=== PATIENT | male | born 1975 | race Caucasian/White ===

== ENCOUNTER 2017-05-09 01:09 | Inpatient (IN) | payer SELFPAY ==
[2017-05-09] VITALS (18 sets, daily range): BP systolic 98–154; BP diastolic 56–82; PULSE 90–140; RESP 20; TEMP 96.6–100.6; O2SAT 93–100
[2017-05-09] MEDS ORDERED: ceFAZolin 2 GM PREMIX 50 ML ONE (01:26)
[2017-05-09] MEDS ORDERED: DIPHTH/TETANUS/ACEL PERTUSSIS (BOOSTER) 0.5 ML VIAL/PFS IM ONE (01:26)
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
[2017-05-09] MEDS ORDERED: IOHEXOL 350 MG/ML 10 ML VIAL (for RAD DIAG) IVCONTRAST ONE (01:41)
[2017-05-09 01:44] LABS: I-STAT POTASSIUM 3.9 MMOL/L (3.5-4.9)
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
[2017-05-09 01:52] LABS: AUTOMATED NEUTROPHIL # 13.6 TH/MM3 (1.8-7.7); BASOPHIL # 0.1 TH/MM3 (0-0.2); BASOPHIL % 0.5 % (0.0-2.0); HEMATOCRIT 47.5 % (39.0-51.0); HEMO FLAGS DIFF FINAL; LYMPHOCYTE # 4.9 TH/MM3 (1.0-4.8); MEAN CELL VOLUME 92.7 FL (80.0-100.0); MEAN CORPUSCULAR HEMOGLOBIN 32.2 PG (27.0-34.0); MEAN CORPUSCULAR HGB CONC 34.8 % (32.0-36.0); MONO % 5.1 % (0.0-8.0); NEUT % 69.4 % (16.0-70.0); PLATELET COUNT 187 TH/MM3 (150-450); RED BLOOD COUNT 5.13 MIL/MM3 (4.50-5.90); RED CELL DISTRIBUTION WIDTH 12.7 % (11.6-17.2); WHITE BLOOD COUNT 19.6 TH/MM3 (4.0-11.0)
[2017-05-09 01:54] LABS: APTT (PATIENT) 22.4 SEC (24.3-30.1); INTERNATIONAL NORMALIZED RATIO 1.1 RATIO; PROTHROMBIN TIME - PATIENT 12.1 SEC (9.8-11.6)
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
[2017-05-09] MEDS ORDERED: THROMBIN (TOPICAL) 5,000 UNIT VIAL ONE (02:17)
[2017-05-09] MEDS ORDERED: GELFOAM SIZE 100 ONE (02:18)
[2017-05-09] MEDS ORDERED: GENTAMICIN SULFATE 80 MG/2 ML VIAL ONE (02:18)
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
[2017-05-09] MEDS ORDERED: VANCOMYCIN HCL 1000 MG VIAL ONE (02:28)
[2017-05-09] MEDS ORDERED: MANNITOL INJ 100 ML ONE (02:28)
[2017-05-09] MEDS ORDERED: levETIRAcetam 500 MG/5 ML VIAL IV ONE (02:28)
[2017-05-09] MEDS ORDERED: SODIUM CHLORIDE 0.9% FLUSH 10 ML FLUSH IV FLUSH PRN (02:30)
[2017-05-09] MEDS ORDERED: ONDANSETRON HCL 4 MG/2 ML VIAL IV PUSH PRN (02:30)
[2017-05-09] MEDS ORDERED: BUPIVACAINE/EPINEPHRINE 0.5% PF 10 ML VIAL ONE (02:30)
[2017-05-09] MEDS ORDERED: NALOXONE HCL 0.4 MG/ML AMP IV PUSH PRN (02:30)
[2017-05-09] MEDS ORDERED: Post-op Orders (for Pharmacy) MISC XX ONE (02:30)
[2017-05-09] MEDS ORDERED: fentaNYL DRIP 250 ML IV PRN (02:45)
[2017-05-09] MEDS ORDERED: PROPOFOL 1000 MG/100 ML INJ 100 ML IV PRN (02:45)
[2017-05-09] MEDS ORDERED: 3% SALINE INJ 500 ML IV ONE (02:45)
[2017-05-09] MEDS ORDERED: BUPIVACAINE/EPINEPHRINE 0.5% 50 ML VIAL ONE (02:59)
[2017-05-09] MEDS ORDERED: NOREPINEPHRINE 4 MG/4 ML AMP ONE ×2 (03:07→07:54)
[2017-05-09 03:24] LABS: BLOOD GAS BASE EXCESS -6.6 mmol/L (-2-2); BLOOD GAS CARBOXYHEMOGLOBIN 4.7 % (0-4); BLOOD GAS HCO3 19 mmol/L (22-26); BLOOD GAS O2 HGB SATURATION 92 % (90-100); BLOOD GAS OXYGEN CONTENT 15.1 Vol % (12.0-20.0); BLOOD GAS PCO2 41 mmHg (38-42); BLOOD GAS PO2 99 mmHg (61-120); BLOOD GAS TOTAL HGB 11.6 G/DL (12.0-16.0); TEMP CORR TO 98.6
[2017-05-09 03:27] LABS: CRITICAL VALUE YES; DRAW SITE ALINE; OXYGEN DEVICE VENTILATOR; VENT SETTINGS OR SETTINGS
[2017-05-09 03:28] LABS: STAT YES
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
[2017-05-09] MEDS ORDERED: SODIUM BICARBONATE 8.4% INJ 50 ML ONE (04:55)
[2017-05-09] MEDS ORDERED: PHENYLEPHRINE HCL 10 MG/ML VIAL ONE (04:59)
[2017-05-09] MEDS ORDERED: ROCURONIUM INJ 50 MG/5 ML VIAL ONE (05:37)
[2017-05-09] MEDS ORDERED: MANNITOL INJ 200 ML ONE (05:37)
[2017-05-09] MEDS: SODIUM CHLOR 0.9% 1000 ML INJ 1,000 ML IV SCH ×4 (05:38→23:51)
[2017-05-09] MEDS: levETIRAcetam INJ 500 MG in SODIUM CHLORIDE 0.9% INJ 100 ML IV SCH ×3 (05:38→20:35)
[2017-05-09] MEDS: SODIUM CHLORIDE 23.4% INJ 240 MEQ in SYRINGE/BAG 1 EA IV SCH ×2 (06:00→10:00)
[2017-05-09 06:06] LABS: BLOOD GAS CARBOXYHEMOGLOBIN 2.5 % (0-4); BLOOD GAS HCO3 23 mmol/L (22-26); BLOOD GAS METHEMOGLOBIN 0.7 % (0-2); BLOOD GAS O2 HGB SATURATION 96 % (90-100); BLOOD GAS OXYGEN CONTENT 14.1 Vol % (12.0-20.0); BLOOD GAS PCO2 52 mmHg (38-42); BLOOD GAS PO2 197 mmHg (61-120); BLOOD GAS TOTAL HGB 10.1 G/DL (12.0-16.0); TEMP CORR TO 98.6
[2017-05-09 06:07] LABS: CRITICAL VALUE YES; DRAW SITE ART LINE; FIO2 100 %; OXYGEN DEVICE VENTILATOR; STAT NO; VENT SETTINGS 16/500/IT1.0/5PEEP
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
[2017-05-09 06:22] LABS: MEAN CORPUSCULAR HEMOGLOBIN 31.9 PG (27.0-34.0); MEAN CORPUSCULAR HGB CONC 34.7 % (32.0-36.0); PLATELET COUNT 188 TH/MM3 (150-450); RED BLOOD COUNT 3.26 MIL/MM3 (4.50-5.90); RED CELL DISTRIBUTION WIDTH 12.7 % (11.6-17.2); REVIEW FLAG FINAL; WHITE BLOOD COUNT 17.3 TH/MM3 (4.0-11.0)
[2017-05-09] MEDS ORDERED: MAGNESIUM OXIDE 400 MG TAB PO PRN (06:45)
[2017-05-09] MEDS ORDERED: POTASSIUM CHLOR 40 MEQ PREMIX 100 ML IV PRN ×2 (06:45)
[2017-05-09] MEDS ORDERED: TERBUTALINE INJ 1 MG/ML AMP SQ PRN ×2 (06:45→14:45)
[2017-05-09] MEDS ORDERED: MAGNESIUM SULFATE INJ 2 GM in SODIUM CHLORIDE 0.9% INJ 96 ML IV PRN (06:45)
[2017-05-09] MEDS ORDERED: POTASSIUM PHOSPHATE INJ 30 MMOL in SODIUM CHLOR 0.9% 250 ML INJ 250 ML IV PRN (06:45)
[2017-05-09] MEDS ORDERED: SODIUM PHOSPHATE INJ 30 MMOL in SODIUM CHLOR 0.9% 250 ML INJ 240 ML IV PRN (06:45)
[2017-05-09] MEDS ORDERED: POTASSIUM PHOSPHATE MONOBASIC 500 MG TAB PO/TUBE PRN (06:45)
[2017-05-09] MEDS ORDERED: MAGNESIUM SULFATE INJ 4 GM in SODIUM CHLORIDE 0.9% INJ 92 ML IV PRN (06:45)
[2017-05-09] MEDS ORDERED: POTASSIUM CHLORIDE 25 MEQ EFFERVESCENT TAB PO PRN (06:45)
[2017-05-09] MEDS ORDERED: POTASSIUM CHLOR 20 MEQ PREMIX 100 ML IV PRN ×2 (06:45)
[2017-05-09] MEDS ORDERED: SODIUM CHLOR 0.9% 1000 ML INJ 1,000 ML IV ONE (06:45)
[2017-05-09] MEDS ORDERED: POTASSIUM PHOSPHATE MONOBASIC 500 MG TAB PO PRN (06:45)
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
[2017-05-09 06:59] LABS: BICARBONATE 24.1 MEQ/L (21.0-32.0); POTASSIUM 3.9 MEQ/L (3.5-5.1)
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
[2017-05-09] MEDS: PROPOFOL 1000 MG/100 ML IV PRN ×4 (07:28→20:00)
[2017-05-09] MEDS: fentaNYL 2,500 MCG/NS 250 ML IV PRN ×2 (07:29→23:03)
[2017-05-09] MEDS: NOREPINEPHRINE INJ 4 MG in SODIUM CHLOR 0.9% 250 ML INJ 246 ML IV PRN ×3 (07:33→14:53)
[2017-05-09] MEDS ORDERED: BISACODYL 10 MG SUPP RECTAL PRN (07:45)
[2017-05-09] MEDS: CHLORHEXIDINE 0.12% (ORAL KIT) 15 ML CUP MT SCH ×2 (08:00→20:15)
[2017-05-09 08:09] LABS: BLOOD GAS BASE EXCESS -5.1 mmol/L (-2-2); BLOOD GAS CARBOXYHEMOGLOBIN 1.9 % (0-4); BLOOD GAS HCO3 20 mmol/L (22-26); BLOOD GAS METHEMOGLOBIN 0.6 % (0-2); BLOOD GAS O2 HGB SATURATION 96 % (90-100); BLOOD GAS OXYGEN CONTENT 13.3 Vol % (12.0-20.0); BLOOD GAS PCO2 42 mmHg (38-42); BLOOD GAS PO2 119 mmHg (61-120); BLOOD GAS TOTAL HGB 9.7 G/DL (12.0-16.0); CRITICAL VALUE NO; OXYGEN DEVICE VENTILATOR; TEMP CORR TO 98.6
[2017-05-09 08:10] LABS: DRAW SITE ART LINE; FIO2 65 %; NUMBER OF ARTERIAL PUNCTURES 0; STAT NO; ULNAR PULSE PRESENT; VENT SETTINGS PRVC20/550/1.0/+5
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
[2017-05-09] MEDS: SODIUM CHLORIDE 0.9% FLUSH 10 ML FLUSH IV FLUSH SCH ×2 (09:00→20:35)
[2017-05-09] MEDS: LACTULOSE SYRUP 20 GM/30 ML CUP PO SCH (09:00)
[2017-05-09] MEDS: DOCUSATE SODIUM 50 MG/SENNA 8.6 MG TAB PO SCH ×2 (09:00→20:35)
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
--- NOTE | 2017-05-09 09:24 | MP ---
cc: MOHINI KWAN MD AKA: [id number] DATE OF SURGERY: 05/09/2017 PREOPERATIVE DIAGNOSIS: Bilateral flail chest, left hemopneumothorax. POSTOPERATIVE DIAGNOSIS: Bilateral flail chest, left hemopneumothorax. OPERATION: Left chest tube placement and left subclavian triple-lumen placement. SURGEON: Dr. Kwan ANESTHESIA General. ESTIMATED BLOOD LOSS: Minimal. PROCEDURE: The patient was prepped and draped in the usual fashion. An incision made in the midaxillary line about sixth intercostal space deepened down with a hemostat into the pleural space and then 32-English chest tube inserted into the posterior sulcus. Sutured in place with 0-silk connected to Pleur-Evac. Next triple-lumen was placed. The patient is prepped and draped in the usual fashion. Area infiltrated with 1% Xylocaine, needle inserted into the subclavian vein. Through the needle J-wire was passed, over J-wire and dilator, triple-lumen placed, triple lumen sutured in place with 2-0 silk. Mohini PANIAGUA/STELLA /2:46 AM /9:16 AM
--- NOTE | 2017-05-09 09:53 | RADRPT ---
EXAM DATE/TIME: 05/09/2017 08:23 [facility] COMPARISON: No previous studies available for comparison. INDICATIONS : Left leg swelling. MEDICAL HISTORY : Deep venous thrombosis. Right subdural hematoma. IV drug user. SURGICAL HISTORY : Craniotomy. ENCOUNTER: Initial ACUITY: 1 day PAIN SCORE: Non-responsive LOCATION: Left leg. TECHNIQUE: Venous ultrasound of the leg was performed from the inguinal ligament to the proximal calf. Real-yelitza e, color Doppler and spectral tracing, compression and augmentation techniques were used. FINDINGS: Today's examination there is diffuse deep venous thrombosis involving the left lower extremity. There is noncompressible clot from the common iliac vein in the pelvis down through the calf. There is russ e flow in the saphenous vein. There is DVT in the peroneal and posterior tibial veins of the calf. CONCLUSION: Extensive deep venous thrombosis involving the entire left lower leg. Alcon Freitas MD on May 09, 2017 at 9:48 Board Certified Radiologist. This report was verified electronically.
[2017-05-09] MEDS: PANTOPRAZOLE SODIUM 40 MG VIAL IV PUSH SCH (10:33)
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
[2017-05-09] MEDS ORDERED: PHENYLEPHRINE INJ 160 MG in DEXTROSE 5% IN WATE 500 ML INJ 484 ML IV PRN ×2 (14:45)
[2017-05-09] MEDS ORDERED: ALBUMIN 5% INJ 500 ML IV ONE (14:45)
[2017-05-09] MEDS ORDERED: NOREPINEPHRINE 16 MG/D5W 250 ML IV PRN ×2 (15:45)
[2017-05-09] MEDS ORDERED: PHENYLEPHRINE INJ 160 MG in SODIUM CHLORID 0.9% 500 ML INJ 484 ML IV PRN (16:00)
[2017-05-09] MEDS ORDERED: PHENYLEPHRINE HCL 160 MG/D5W 484 ML ADMIX IV PRN ×2 (16:00)
[2017-05-09] MEDS ORDERED: NOREPINEPHRINE INJ 16 MG in SODIUM CHLOR 0.9% 250 ML INJ 234 ML IV PRN (16:00)
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
[2017-05-10] VITALS (20 sets, daily range): BP systolic 100–151; BP diastolic 56–92; PULSE 92–119; RESP 18–25; TEMP 97.2–99.5; O2SAT 97–100
[2017-05-10] MEDS: PANTOPRAZOLE SODIUM 40 MG VIAL IV PUSH SCH (02:35)
[2017-05-10] MEDS: PROPOFOL 1000 MG/100 ML IV PRN ×4 (02:37→23:57)
--- NOTE | 2017-05-10 04:54 | RADRPT ---
EXAM DATE/TIME: 05/10/2017 04:22 [facility] COMPARISON: CT BRAIN W/O CONTRAST, May 09, 2017, 1:35. INDICATIONS : Follow up trauma, post-op. RADIATION DOSE: 51.36 CTDIvol (mGy) ; Tabletop CT Head MEDICAL HISTORY : Non-responsive. SURGICAL HISTORY : Non-responsive. ENCOUNTER: Subsequent ACUITY: 1 day PAIN SCALE: Non-responsive LOCATION: cranial TECHNIQUE: Multiple contiguous axial images were obtained of the head. Using automated exposure control and adj ustment of the mA and/or kV according to patient size, radiation dose was kept as low as reasonably a chievable to obtain optimal diagnostic quality images. DICOM format image data is available electro nically for review and comparison. FINDINGS: Right temporal craniectomy is present with a drain in place. There is decreasing mass effect and midl ine shift. There is no evidence of herniation. Conclusions are present in the left frontal lobe and l eft temporal lobe. Subarachnoid hemorrhage is present. CONCLUSION: 1. Postsurgical changes as above. decreasing mass effect and midline shift 2. Evolving contusions Dmitriy Zeng MD on May 10, 2017 at 4:50 Board Certified Radiologist. This report was verified electronically.
--- NOTE | 2017-05-10 05:46 | RADRPT ---
EXAM DATE/TIME: 05/10/2017 04:59 [facility] COMPARISON: CHEST SINGLE AP, May 09, 2017, 5:30. INDICATIONS : Short of breath. MEDICAL HISTORY : None. SURGICAL HISTORY : None. ENCOUNTER: Subsequent ACUITY: 2 days PAIN SCORE: 0/10 LOCATION: Bilateral chest FINDINGS: The cardiac silhouette is normal in transverse diameter. A left chest tube is in place. There is no e vidence of pneumothorax. There is subsegmental atelectasis in the left base. CONCLUSION: 1. Left basilar atelectasis. There is no evidence of pneumothorax. Dmitriy Zeng MD on May 10, 2017 at 5:44 Board Certified Radiologist. This report was verified electronically.
[2017-05-10 06:37] LABS: AUTOMATED NEUTROPHIL # 6.2 TH/MM3 (1.8-7.7); BASOPHIL % 0.1 % (0.0-2.0); HEMATOCRIT 22.1 % (39.0-51.0); HEMO FLAGS DIFF FINAL; LYMPH % 14.1 % (9.0-44.0); LYMPHOCYTE # 1.1 TH/MM3 (1.0-4.8); MEAN CELL VOLUME 91.1 FL (80.0-100.0); MEAN CORPUSCULAR HEMOGLOBIN 32.6 PG (27.0-34.0); MEAN CORPUSCULAR HGB CONC 35.7 % (32.0-36.0); NEUT % 76.8 % (16.0-70.0); PLATELET COUNT 100 TH/MM3 (150-450); RED BLOOD COUNT 2.42 MIL/MM3 (4.50-5.90); WHITE BLOOD COUNT 8.1 TH/MM3 (4.0-11.0)
[2017-05-10 06:46] LABS: BLOOD GAS BASE EXCESS -2.1 mmol/L (-2-2); BLOOD GAS CARBOXYHEMOGLOBIN 1.5 % (0-4); BLOOD GAS HCO3 22 mmol/L (22-26); BLOOD GAS METHEMOGLOBIN 0.7 % (0-2); BLOOD GAS O2 HGB SATURATION 93 % (90-100); BLOOD GAS OXYGEN CONTENT 10.3 Vol % (12.0-20.0); BLOOD GAS PO2 73 mmHg (61-120); BLOOD GAS TOTAL HGB 7.8 G/DL (12.0-16.0); CRITICAL VALUE NO; FIO2 40 %; OXYGEN DEVICE VENTILATOR; TEMP CORR TO 98.6; VENT SETTINGS 20/650/IT1.0/10PEEP
[2017-05-10 06:47] LABS: BLOOD GAS PCO2 33 mmHg (38-42); DRAW SITE ART LINE; STAT NO
[2017-05-10 07:10] LABS: BICARBONATE 21.8 MEQ/L (21.0-32.0); CALCIUM-PROTEIN CORRECTED 8.2 MG/DL (8.5-10.1); MAGNESIUM 1.7 MG/DL (1.5-2.5); TOTAL BILIRUBIN ADULT 0.8 MG/DL (0.2-1.0)
[2017-05-10] MEDS: CHLORHEXIDINE 0.12% (ORAL KIT) 15 ML CUP MT SCH ×2 (08:56→19:31)
[2017-05-10] MEDS: levETIRAcetam INJ 500 MG in SODIUM CHLORIDE 0.9% INJ 100 ML IV SCH ×2 (08:57→19:31)
[2017-05-10] MEDS: SODIUM CHLORIDE 0.9% FLUSH 10 ML FLUSH IV FLUSH SCH ×2 (08:57→19:31)
[2017-05-10] MEDS: DOCUSATE SODIUM 50 MG/SENNA 8.6 MG TAB PO SCH ×2 (09:00→19:31)
[2017-05-10] MEDS: LACTULOSE SYRUP 20 GM/30 ML CUP PO SCH (09:00)
[2017-05-10] MEDS ORDERED: LIDOCAINE 2%/EPINEPHrine 1:100,000 20ML MDV INFIL ONE (09:15)
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
[2017-05-10] MEDS: ARTIFICIAL TEARS OPTH SOLN 15 ML BTL EACH EYE SCH ×3 (12:00→23:11)
[2017-05-10] MEDS: fentaNYL 2,500 MCG/NS 250 ML IV PRN (13:02)
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
--- NOTE | 2017-05-10 13:51 | ECHRPT ---
Indication: assess lv function CONCLUSIONS The left ventricular systolic function is hyperdynamic with an estimated ejection fraction in the ra nge of 65- 70%. Normal left ventricular size. Wall thickness is normal. No regional wall motion abnormalities are present. BP: 117 / 66 HR: 110 Rhythm: Sinus MEASUREMENTS (Male / Female) Normal Values Technical Quality:Technically difficult study 2D ECHO LV Diastolic Diameter PLAX 3.8 cm 4.2 - 5.9 / 3.9 - 5.3 cm LV Systolic Diameter PLAX 2.4 cm IVS Diastolic Thickness 1.0 cm 0.6 - 1.0 / 0.6 - 0.9 cm LVPW Diastolic Thickness 1.0 cm 0.6 - 1.0 / 0.6 - 0.9 cm LV Relative Wall Thickness 0.5 RV Internal Dim ED PLAX 1.8 cm LVOT Diameter 2.1 cm M-MODE Aortic Root Diameter MM 2.6 cm AV Cusp Separation MM 2.1 cm DOPPLER AV Peak Velocity 115.0 cm/s AV Peak Gradient 5.3 mmHg LVOT Peak Velocity 110.0 cm/s LVOT Peak Gradient 4.8 mmHg AV Area Cont Eq pk 3.3 cm MV Area PHT 4.6 cm Mitral E Point Velocity 54.8 cm/s Mitral A Point Velocity 74.0 cm/s Mitral E to A Ratio 0.7 PV Peak Velocity 88.2 cm/s PV Peak Gradient 3.1 mmHg FINDINGS LEFT VENTRICLE The left ventricular systolic function is hyperdynamic with an estimated ejection fraction in the ra nge of 65- 70%. Normal left ventricular size. Wall thickness is normal. No regional wall motion abnormalities are present. TRICUSPID VALVE Chencho Keane MD (Electronically Signed) Final Date:10 May 2017 13:50
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
[2017-05-10] MEDS: SODIUM CHLOR 0.9% 1000 ML INJ 1,000 ML IV SCH (17:45)
[2017-05-10] MEDS: ceFAZolin 2 GM PREMIX 50 ML IV SCH (17:45)
[2017-05-10] MEDS: GENTAMICIN/SOD CHL 80 MG/100 ML IV SCH (18:23)
[2017-05-11] VITALS (22 sets, daily range): BP systolic 132–165; BP diastolic 73–94; PULSE 56–104; RESP 14–18; TEMP 97.2–98.2; O2SAT 95–100
[2017-05-11] MEDS: GENTAMICIN/SOD CHL 80 MG/100 ML IV SCH ×2 (01:14→08:33)
[2017-05-11] MEDS: ceFAZolin 2 GM PREMIX 50 ML IV SCH ×3 (01:40→18:12)
[2017-05-11] MEDS: PANTOPRAZOLE SODIUM 40 MG VIAL IV PUSH SCH (01:44)
[2017-05-11] MEDS ORDERED: METOPROLOL TARTRATE 25 MG TAB PO PRN (04:00)
[2017-05-11] MEDS ORDERED: LACTATED RINGER'S 1000 ML IV PRN (04:00)
[2017-05-11] MEDS ORDERED: INSULIN HUMAN REGULAR 1,000 UNITS/10 ML VIAL SQ PRN (04:00)
[2017-05-11] MEDS ORDERED: POVIDONE IODINE 5% (ANTISEPSIS KIT) 4 APPLICATIONS EACH NARE PRN (04:00)
[2017-05-11] MEDS ORDERED: SODIUM CHLORID 0.9% 500 ML IV PRN (04:00)
[2017-05-11] MEDS ORDERED: CHLORHEXIDINE GLUCONATE 2 % 1 PACK (2 CLOTHS) TOPICAL PRN (04:00)
[2017-05-11] MEDS: fentaNYL 2,500 MCG/NS 250 ML IV PRN ×2 (04:17→21:31)
[2017-05-11] MEDS: PROPOFOL 1000 MG/100 ML IV PRN ×5 (04:17→21:31)
[2017-05-11 05:36] LABS: BLOOD GAS BASE EXCESS -1.1 mmol/L (-2-2); BLOOD GAS CARBOXYHEMOGLOBIN 1.5 % (0-4); BLOOD GAS HCO3 22 mmol/L (22-26); BLOOD GAS METHEMOGLOBIN 0.6 % (0-2); BLOOD GAS O2 HGB SATURATION 95 % (90-100); BLOOD GAS OXYGEN CONTENT 11.2 Vol % (12.0-20.0); BLOOD GAS PCO2 32 mmHg (38-42); BLOOD GAS PO2 88 mmHg (61-120); BLOOD GAS TOTAL HGB 8.2 G/DL (12.0-16.0); TEMP CORR TO 98.6
[2017-05-11 05:37] LABS: CRITICAL VALUE NO; OXYGEN DEVICE VENTILATOR
[2017-05-11 05:38] LABS: DRAW SITE ART LINE; FIO2 40 %; STAT NO; VENT SETTINGS PRVC/AC
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
[2017-05-11] MEDS: ARTIFICIAL TEARS OPTH SOLN 15 ML BTL EACH EYE SCH ×3 (05:47→18:00)
[2017-05-11 06:01] LABS: BASOPHIL % 0.1 % (0.0-2.0); EOSINOPHIL % 0.1 % (0.0-4.0); HEMATOCRIT 22.9 % (39.0-51.0); LYMPH % 17.2 % (9.0-44.0); LYMPHOCYTE # 1.6 TH/MM3 (1.0-4.8); MEAN CELL VOLUME 91.1 FL (80.0-100.0); MEAN CORPUSCULAR HGB CONC 35.1 % (32.0-36.0); MONO % 6.4 % (0.0-8.0); NEUT % 76.2 % (16.0-70.0); PLATELET COUNT 91 TH/MM3 (150-450); RED BLOOD COUNT 2.51 MIL/MM3 (4.50-5.90); WHITE BLOOD COUNT 9.2 TH/MM3 (4.0-11.0)
[2017-05-11 06:11] LABS: HEMO FLAGS AUTO DIFF
[2017-05-11 06:25] LABS: BICARBONATE 22.1 MEQ/L (21.0-32.0); POTASSIUM 3.9 MEQ/L (3.5-5.1)
[2017-05-11 07:14] LABS: SCAN/DIFF AUTO DIFF CONFIRMED
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
[2017-05-11] MEDS: levETIRAcetam INJ 500 MG in SODIUM CHLORIDE 0.9% INJ 100 ML IV SCH ×2 (08:35→21:29)
[2017-05-11] MEDS: SODIUM CHLORIDE 0.9% FLUSH 10 ML FLUSH IV FLUSH SCH ×2 (08:36→21:00)
[2017-05-11] MEDS: CHLORHEXIDINE 0.12% (ORAL KIT) 15 ML CUP MT SCH ×2 (08:36→21:29)
[2017-05-11] MEDS: LACTULOSE SYRUP 20 GM/30 ML CUP PO SCH (08:36)
[2017-05-11] MEDS: DOCUSATE SODIUM 50 MG/SENNA 8.6 MG TAB PO SCH ×2 (08:36→21:29)
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
[2017-05-11] MEDS: SODIUM CHLOR 0.9% 1000 ML INJ 1,000 ML IV SCH ×2 (10:20→23:45)
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
[2017-05-11] MEDS ORDERED: GENTAMICIN SULFATE 80 MG/2 ML VIAL ONE (13:20)
[2017-05-11] MEDS ORDERED: ceFAZolin INJ 1,000 MG VIAL ONE (13:20)
[2017-05-11 14:50] LABS: BLOOD GAS BASE EXCESS -3.1 mmol/L (-2-2); BLOOD GAS CARBOXYHEMOGLOBIN 1.7 % (0-4); BLOOD GAS HCO3 21 mmol/L (22-26); BLOOD GAS O2 HGB SATURATION 97 % (90-100); BLOOD GAS OXYGEN CONTENT 10.2 Vol % (12.0-20.0); BLOOD GAS PCO2 38 mmHg (38-42); BLOOD GAS PO2 130 mmHg (61-120); BLOOD GAS TOTAL HGB 7.3 G/DL (12.0-16.0); CRITICAL VALUE NO; FIO2 60 %; OXYGEN DEVICE OR; STAT YES; TEMP CORR TO 98.6
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
[2017-05-11] MEDS: GENTAMICIN 80 MG PREMIX 100 ML IV SCH (16:12)
[2017-05-11] MEDS: BENEPROTEIN POWDER 1 PACK PEG SCH (18:00)
--- NOTE | 2017-05-11 19:19 | RADRPT ---
EXAM DATE/TIME: 05/11/2017 18:33 [facility] COMPARISON: No previous studies available for comparison. INDICATIONS : Left shoulder pain, fracture. RADIATION DOSE: 22.05 CTDIvol (mGy) MEDICAL HISTORY : Vented. SURGICAL HISTORY : Non-responsive. ENCOUNTER: Initial ACUITY: 1 day PAIN SCALE: Non-responsive LOCATION: Left shoulder TECHNIQUE: Volumetric scanning of the shoulder was performed. Using automated exposure control and adjustment o f the mA and/or kV according to patient size, radiation dose was kept as low as reasonably achievable to obtain optimal diagnostic quality images. DICOM format image data is available electronically f or review and comparison. FINDINGS: Multiple displaced rib fractures are seen. There is a complex and comminuted fracture of proxima l humerus underneath the surgical neck with extension into the humeral head and the humeral head is r otated. There are fractures of distal clavicle, acromion, in addition to scapula. The humeral head is shattered parts of it appears dislocated out of the glenoid humeral joint. CONCLUSION: Complex and comminuted fracture left proximal humerus with shattered humeral head par t of which appears dislocated and there are fractures of the acromion, scapula and distal clavicle in addition to multiple ribs. Jennifer Scales MD on May 11, 2017 at 19:15 Board Certified Radiologist. This report was verified electronically.
[2017-05-12] VITALS (15 sets, daily range): BP systolic 140–184; BP diastolic 71–112; PULSE 64–121; RESP 18–25; TEMP 98–99.8; O2SAT 97–100
[2017-05-12] MEDS: ceFAZolin 2 GM PREMIX 50 ML IV SCH ×3 (00:13→16:09)
[2017-05-12] MEDS: GENTAMICIN 80 MG PREMIX 100 ML IV SCH ×3 (00:13→16:08)
--- NOTE | 2017-05-12 03:35 | RADRPT ---
EXAM DATE/TIME: 05/12/2017 03:33 [facility] COMPARISON: CHEST SINGLE AP, May 10, 2017, 4:59. INDICATIONS : Short of breath. MEDICAL HISTORY : None. SURGICAL HISTORY : None. ENCOUNTER: Subsequent ACUITY: 3 days PAIN SCORE: 0/10 LOCATION: Bilateral chest FINDINGS: The cardiac silhouette is normal in transverse diameter. A left chest tube is in place. There is no e vidence of pneumothorax. A left sided subclavian vein catheter is in place without pneumothorax with its tip in the superior vena cava. The right lung is free of acute parenchymal opacity. There is left lower lobe atelectasis versus pneumonia. A small left sided effusion is present. CONCLUSION: 1. Left lower lobe atelectasis versus pneumonia. This is new when compared with the prior exam. Dmitriy Zeng MD on May 12, 2017 at 3:32 Board Certified Radiologist. This report was verified electronically.
[2017-05-12] MEDS: BENEPROTEIN POWDER 1 PACK PEG SCH ×3 (03:40→17:09)
[2017-05-12 05:09] LABS: BLOOD GAS BASE EXCESS -0.5 mmol/L (-2-2); BLOOD GAS CARBOXYHEMOGLOBIN 1.7 % (0-4); BLOOD GAS HCO3 23 mmol/L (22-26); BLOOD GAS METHEMOGLOBIN 0.8 % (0-2); BLOOD GAS O2 HGB SATURATION 95 % (90-100); BLOOD GAS OXYGEN CONTENT 10.6 Vol % (12.0-20.0); BLOOD GAS PCO2 32 mmHg (38-42); BLOOD GAS PO2 85 mmHg (61-120); BLOOD GAS TOTAL HGB 7.8 G/DL (12.0-16.0); TEMP CORR TO 98.6
[2017-05-12 05:44] LABS: CRITICAL VALUE NO
[2017-05-12 05:45] LABS: OXYGEN DEVICE VENTILATOR
[2017-05-12 05:47] LABS: DRAW SITE ART LINE; FIO2 40 %; VENT SETTINGS PRVCAC
[2017-05-12 05:48] LABS: STAT NO
[2017-05-12 05:55] LABS: BASOPHIL % 0.2 % (0.0-2.0); EOSINOPHIL % 0.4 % (0.0-4.0); HEMATOCRIT 21.5 % (39.0-51.0); LYMPH % 15.6 % (9.0-44.0); LYMPHOCYTE # 1.4 TH/MM3 (1.0-4.8); MEAN CELL VOLUME 90.9 FL (80.0-100.0); MEAN CORPUSCULAR HEMOGLOBIN 32.3 PG (27.0-34.0); MEAN CORPUSCULAR HGB CONC 35.5 % (32.0-36.0); MONO % 4.9 % (0.0-8.0); NEUT % 78.9 % (16.0-70.0); PLATELET COUNT 81 TH/MM3 (150-450); RED BLOOD COUNT 2.37 MIL/MM3 (4.50-5.90); RED CELL DISTRIBUTION WIDTH 13.9 % (11.6-17.2); WHITE BLOOD COUNT 8.9 TH/MM3 (4.0-11.0)
[2017-05-12 06:00] LABS: HEMO FLAGS AUTO DIFF
[2017-05-12] MEDS: ARTIFICIAL TEARS OPTH SOLN 15 ML BTL EACH EYE SCH ×4 (06:00→17:09)
[2017-05-12] MEDS: PROPOFOL 1000 MG/100 ML IV PRN ×4 (06:21→15:47)
[2017-05-12 06:26] LABS: BICARBONATE 23.9 MEQ/L (21.0-32.0); POTASSIUM 3.5 MEQ/L (3.5-5.1)
[2017-05-12 06:38] LABS: CALCIUM-PROTEIN CORRECTED 8.5 MG/DL (8.5-10.1)
[2017-05-12 06:58] LABS: BANDS 1 % (0-6); CORRECTED NUCLEATED RBC 1 /100 WBC (0-0); METAMYELOCYTES 2 % (0-1); MYELOCYTES 3 % (0-0); NEUTROPHIL # MANUAL DIFF 7.1 TH/MM3 (1.8-7.7); POLYS (SEG NEUTROPHILS) 74 % (16-70); WBC DIFF SAMPLE 100
[2017-05-12 06:59] LABS: PLATELET ESTIMATE SMEAR LOW (NORMAL); PLATELET MORPHOLOGY NORMAL (NORMAL); SCAN/DIFF FINAL DIFF MANUAL
[2017-05-12] MEDS: CHLORHEXIDINE 0.12% (ORAL KIT) 15 ML CUP MT SCH ×2 (08:30→20:52)
[2017-05-12] MEDS: levETIRAcetam INJ 500 MG in SODIUM CHLORIDE 0.9% INJ 100 ML IV SCH ×2 (08:32→20:51)
[2017-05-12] MEDS: SODIUM CHLORIDE 0.9% FLUSH 10 ML FLUSH IV FLUSH SCH ×2 (08:32→20:52)
[2017-05-12] MEDS: LACTULOSE SYRUP 20 GM/30 ML CUP PO SCH (08:33)
[2017-05-12] MEDS: DOCUSATE SODIUM 50 MG/SENNA 8.6 MG TAB PO SCH ×2 (08:33→20:51)
[2017-05-12] MEDS: FAMOTIDINE 20 MG TAB PO SCH ×2 (08:33→20:51)
[2017-05-12] MEDS: fentaNYL 2,500 MCG/NS 250 ML IV PRN ×2 (08:34→16:08)
[2017-05-12] MEDS: SODIUM CHLOR 0.9% 1000 ML INJ 1,000 ML IV SCH ×2 (08:35→20:52)
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
[2017-05-12] MEDS: METHOCARBAMOL 500 MG TAB PO SCH ×2 (10:23→16:09)
--- NOTE | 2017-05-12 10:54 | PD.ORT.PN ---
Subjective Subjective Remarks s/p open left elbow fx with I&D - POD 1 s/p right distal radius fx s/p left proximal humerus fracture intubated/sedated Objective Vitals Vital Signs Date Time Temp Pulse Resp B/P (MAP) Pulse Ox O2 Delivery O2 Flow Rate FiO2 05/12/17 08:27 100 40 05/12/17 06:00 71 05/12/17 04:00 71 05/12/17 04:00 40 05/12/17 04:00 98.6 96 18 146/80 (102) 100 05/12/17 03:41 99 40 05/12/17 02:00 71 05/12/17 00:00 40 05/12/17 00:00 98.0 64 18 140/81 (100) 100 05/12/17 00:00 71 05/11/17 23:23 95 40 05/11/17 22:00 70 05/11/17 20:32 100 05/11/17 20:28 100 40 05/11/17 20:00 40 05/11/17 20:00 64 05/11/17 20:00 97.5 64 18 141/81 (101) 100 05/11/17 19:00 99 Mechanical Ventilator 40 05/11/17 18:57 100 05/11/17 18:00 70 05/11/17 16:00 60 05/11/17 16:00 97.5 73 14 159/94 (115) 100 05/11/17 16:00 40 05/11/17 15:46 100 05/11/17 15:42 98 40 05/11/17 12:04 100 40 05/11/17 12:00 97.3 57 18 152/76 (101) 100 05/11/17 12:00 40 05/11/17 12:00 56 I/O 05/11/17 05/11/17 05/11/17 05/12/17 05/12/17 05/12/17 07:00 15:00 23:00 07:00 15:00 23:00 Intake Total 1206.3 ml 321.6 ml 2252.8 ml 670 ml Output Total 475 ml 638 ml 960 ml Balance 731.3 ml 321.6 ml 1614.8 ml -290 ml Intake IV Total 1143.3 ml 321.6 ml 1747.8 ml 100 ml Tube Feeding 63 ml 510 ml Blood Product IV Normal Saline Flush 5 ml Tube Irrigant 60 ml Other 500 ml Output Urine Total 425 ml 450 ml 900 ml Gastric Drainage Total 0 ml Chest Tube Drainage Total 50 ml 38 ml 60 ml Estimated Blood Loss 150 ml # Bowel Movements 0 0 Result Diagram: 05/12/1738 05/12/17537 Imaging Last [address] 05/10/17599 Signed Impressions: Service Date/Time: Wednesday, May 10, 2017 04:22 - CONCLUSION: 1. Postsurgical changes as above. decreasing mass effect and midline shift 2. Evolving contusions Dmitriy Zeng MD Chest X-Ray 05/10/17599 Signed Impressions: Service Date/Time: Wednesday, May 10, 2017 04:59 - CONCLUSION: 1. Left basilar atelectasis. There is no evidence of pneumothorax. Dmitriy Zeng MD Objective Remarks Intubated Right upper extremity: splint in place. right wrist. Left upper extremity: +long arm splint in full extension. clean and dry. good perfusion of fingers. Assessment & Plan Assessment and Plan 1- TBI 2- right distal radius fracture 3- left severely comminuted open elbow fracture, limb threatening 3- Comminuted Left Proximal Humerus Fx -CT scan of left shoulder reveal comminuted proximal humerus fracture. this will need definitive fixation -maintain long arm splint at all times on left -maintain splint on right wrist -will not proceed with surgery of left elbow until cleared by neuro to be placed in lateral position. patient will need to be lateral for approx 2-3 hours. -potentially move forward with ORIF of right wrist tomorrow or Tomas Jesus May 12, 2017 10:54
[2017-05-12] MEDS ORDERED: SODIUM CHLOR 0.9% 250 ML INJ 250 ML IV ONE (11:00)
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
--- NOTE | 2017-05-12 14:28 | EKG ---
Date Performed: 05/11/2017 Time Performed: 10:14:56 PTAGE: 41 years EKG: Sinus rhythm Poor R wave progression - probable normal variant Borderline ECG NO PREVIOUS TRACING DOCTOR: Wesley De Interpretating Date/Time 05/12/2017 14:20:55
[2017-05-12] MEDS: MAGNESIUM HYDROXIDE SUSP 30 ML CUP PO SCH (20:51)
[2017-05-12 21:13] LABS: HEMATOCRIT 23.1 % (39.0-51.0)
[2017-05-12 21:18] LABS: REVIEW FLAG FINAL
[2017-05-13] VITALS (21 sets, daily range): BP systolic 136–161; BP diastolic 67–85; PULSE 71–102; RESP 20–22; TEMP 99–100.1; O2SAT 93–100
[2017-05-13] MEDS: ARTIFICIAL TEARS OPTH SOLN 15 ML BTL EACH EYE SCH ×4 (00:58→18:00)
[2017-05-13] MEDS: GENTAMICIN 80 MG PREMIX 100 ML IV SCH ×4 (00:58→22:51)
[2017-05-13] MEDS: METHOCARBAMOL 500 MG TAB PO SCH ×3 (00:58→16:25)
[2017-05-13] MEDS: ceFAZolin 2 GM PREMIX 50 ML IV SCH ×3 (00:58→16:25)
[2017-05-13] MEDS: BENEPROTEIN POWDER 1 PACK PEG SCH ×3 (01:49→18:00)
[2017-05-13] MEDS: PROPOFOL 1000 MG/100 ML IV PRN ×6 (02:10→22:44)
[2017-05-13] MEDS: SODIUM CHLOR 0.9% 1000 ML INJ 1,000 ML IV SCH ×2 (03:57→15:45)
[2017-05-13 05:16] LABS: BLOOD GAS BASE EXCESS -1.6 mmol/L (-2-2); BLOOD GAS HCO3 21 mmol/L (22-26); BLOOD GAS METHEMOGLOBIN 0.7 % (0-2); BLOOD GAS O2 HGB SATURATION 97 % (90-100); BLOOD GAS PCO2 27 mmHg (38-42); BLOOD GAS PO2 112 mmHg (61-120); TEMP CORR TO 98.6
[2017-05-13 05:17] LABS: CRITICAL VALUE NO; OXYGEN DEVICE VENT; VENT SETTINGS SEE COMMENTS
[2017-05-13 05:18] LABS: DRAW SITE ART LINE; FIO2 40 %; STAT NO; ULNAR PULSE PRESENT
[2017-05-13 05:49] LABS: AUTOMATED NEUTROPHIL # 7.3 TH/MM3 (1.8-7.7); BASOPHIL % 0.4 % (0.0-2.0); EOSINOPHIL # 0.1 TH/MM3 (0-0.4); EOSINOPHIL % 0.5 % (0.0-4.0); HEMATOCRIT 21.7 % (39.0-51.0); LYMPH % 17.7 % (9.0-44.0); LYMPHOCYTE # 1.7 TH/MM3 (1.0-4.8); MEAN CELL VOLUME 89.8 FL (80.0-100.0); MEAN CORPUSCULAR HGB CONC 35.7 % (32.0-36.0); MONO % 5.5 % (0.0-8.0); NEUT % 75.9 % (16.0-70.0); PLATELET COUNT 80 TH/MM3 (150-450); RED BLOOD COUNT 2.42 MIL/MM3 (4.50-5.90); RED CELL DISTRIBUTION WIDTH 14.8 % (11.6-17.2); WHITE BLOOD COUNT 9.7 TH/MM3 (4.0-11.0)
[2017-05-13 05:59] LABS: HEMO FLAGS AUTO DIFF
[2017-05-13 06:17] LABS: POTASSIUM 3.6 MEQ/L (3.5-5.1)
--- NOTE | 2017-05-13 06:28 | RADRPT ---
EXAM DATE/TIME: 05/13/2017 05:38 [place] COMPARISON: CHEST SINGLE AP, May 12, 2017, 3:33. INDICATIONS : Shortness of breath MEDICAL HISTORY : None. SURGICAL HISTORY : None. ENCOUNTER: Subsequent ACUITY: 4 - 6 days PAIN SCORE: Non-responsive. LOCATION: Bilateral chest FINDINGS: The cardiac silhouette is enlarged in transverse diameter. A left chest tube is in place. There is no evidence of pneumothorax. There is left lower lobe atelectasis versus pneumonia. The right lung is f ree of acute parenchymal opacity. CONCLUSION: 1. There is no evidence of pneumothorax. 2. Left lower lobe atelectasis versus pneumonia. There has been no significant change when compared t o the prior exam. Dmitriy Zeng MD on May 13, 2017 at 6:26 Board Certified Radiologist. This report was verified electronically.
[2017-05-13 06:29] LABS: CALCIUM-PROTEIN CORRECTED 8.4 MG/DL (8.5-10.1)
[2017-05-13] MEDS: fentaNYL 2,500 MCG/NS 250 ML IV PRN (06:47)
--- NOTE | 2017-05-13 06:54 | PD.ORT.PN ---
Subjective Subjective Remarks s/p open left elbow fx with I&D - POD 2 s/p right distal radius fx s/p left proximal humerus fracture intubated/sedated Objective Vitals Vital Signs Date Time Temp Pulse Resp B/P (MAP) Pulse Ox O2 Delivery O2 Flow Rate FiO2 05/13/17 04:13 93 40 05/13/17 04:00 100.1 88 20 149/81 (103) 99 05/13/17 04:00 88 05/13/17 04:00 40 05/13/17 02:00 93 05/13/17 01:45 100 40 05/13/17 00:00 99.7 87 20 161/85 (110) 99 05/13/17 00:00 40 05/13/17 00:00 87 05/12/17 22:13 99 40 05/12/17 22:00 84 05/12/17 20:47 99 40 05/12/17 20:00 77 05/12/17 20:00 99.3 77 20 155/86 (109) 100 05/12/17 20:00 40 05/12/17 19:00 97 Mechanical Ventilator 40 05/12/17 16:07 100 40 05/12/17 16:00 99.1 78 20 147/71 (96) 100 05/12/17 16:00 40 05/12/17 12:00 40 05/12/17 12:00 99.8 84 18 148/76 (100) 100 05/12/17 11:28 99 40 05/12/17 08:27 100 40 05/12/17 08:00 40 05/12/17 08:00 99.3 121 25 184/112 (136) 97 05/12/17 07:00 99 Mechanical Ventilator 40 I/O 05/12/17 05/12/17 05/12/17 05/13/17 05/13/17 05/13/17 07:00 15:00 23:00 07:00 15:00 23:00 Intake Total 670 ml 3115 ml Output Total 960 ml 775 ml Balance -290 ml 2340 ml Intake IV Total 100 ml 1495 ml Tube Feeding 510 ml 750 ml Packed Cells 750 ml Tube Irrigant 60 ml 120 ml Output Urine Total 900 ml 750 ml Chest Tube Drainage Total 60 ml 25 ml # Bowel Movements 0 Result Diagram: 05/13/1752905/13/17529 Imaging Last [address] 05/10/17599 Signed Impressions: Service Date/Time: Wednesday, May 10, 2017 04:22 - CONCLUSION: 1. Postsurgical changes as above. decreasing mass effect and midline shift 2. Evolving contusions Dmitriy Zeng MD Chest X-Ray 05/10/17599 Signed Impressions: Service Date/Time: Wednesday, May 10, 2017 04:59 - CONCLUSION: 1. Left basilar atelectasis. There is no evidence of pneumothorax. Dmitriy Zeng MD Objective Remarks Intubated Right upper extremity: splint in place. right wrist. Left upper extremity: +long arm splint in full extension. clean and dry. good perfusion of fingers. Assessment & Plan Assessment and Plan 1- TBI 2- right distal radius fracture 3- left severely comminuted open elbow fracture, limb threatening s/p I&D - POD 2 3- Comminuted Left Proximal Humerus Fx -will plan to proceed with surgery for ORIF of left proximal humerus today. -obtain consents -maintain long arm splint at all times on left -maintain splint on right wrist -will not proceed with surgery of left elbow until cleared by neuro to be placed in lateral position. patient will need to be lateral for approx 2-3 hours. Tomas Jesus May 13, 2017 06:54
[2017-05-13 07:15] LABS: BANDS 5 % (0-6); CORRECTED NUCLEATED RBC 2 /100 WBC (0-0); EOSINOPHILS 2 % (0-4); MYELOCYTES 2 % (0-0); NEUTROPHIL # MANUAL DIFF 8.9 TH/MM3 (1.8-7.7); POLYS (SEG NEUTROPHILS) 85 % (16-70); WBC DIFF SAMPLE 100
[2017-05-13 07:16] LABS: PLATELET ESTIMATE SMEAR LOW (NORMAL)
[2017-05-13 07:17] LABS: PLATELET MORPHOLOGY NORMAL (NORMAL); SCAN/DIFF FINAL DIFF MANUAL
[2017-05-13] MEDS: SODIUM CHLORIDE 0.9% FLUSH 10 ML FLUSH IV FLUSH SCH ×2 (07:30→21:00)
[2017-05-13] MEDS: CHLORHEXIDINE 0.12% (ORAL KIT) 15 ML CUP MT SCH ×2 (08:00→21:05)
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
[2017-05-13] MEDS: FAMOTIDINE 20 MG TAB PO SCH ×2 (09:00→21:08)
[2017-05-13] MEDS: LACTULOSE SYRUP 20 GM/30 ML CUP PO SCH (09:00)
[2017-05-13] MEDS: DOCUSATE SODIUM 50 MG/SENNA 8.6 MG TAB PO SCH ×2 (09:00→21:08)
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
[2017-05-13 11:06] LABS: AUTOMATED NEUTROPHIL # 8.5 TH/MM3 (1.8-7.7); BASOPHIL # 0.1 TH/MM3 (0-0.2); BASOPHIL % 0.6 % (0.0-2.0); EOSINOPHIL # 0.1 TH/MM3 (0-0.4); EOSINOPHIL % 0.5 % (0.0-4.0); HEMATOCRIT 24.3 % (39.0-51.0); LYMPH % 18.6 % (9.0-44.0); LYMPHOCYTE # 2.1 TH/MM3 (1.0-4.8); MONO % 6.5 % (0.0-8.0); NEUT % 73.8 % (16.0-70.0); PLATELET COUNT 77 TH/MM3 (150-450); RED BLOOD COUNT 2.67 MIL/MM3 (4.50-5.90); RED CELL DISTRIBUTION WIDTH 14.8 % (11.6-17.2); WHITE BLOOD COUNT 11.5 TH/MM3 (4.0-11.0)
[2017-05-13 11:08] LABS: HEMO FLAGS AUTO DIFF
[2017-05-13 11:33] LABS: BANDS 14 % (0-6); METAMYELOCYTES 2 % (0-1); MYELOCYTES 7 % (0-0); NEUTROPHIL # MANUAL DIFF 10.9 TH/MM3 (1.8-7.7); POLYS (SEG NEUTROPHILS) 72 % (16-70); WBC DIFF SAMPLE 100
[2017-05-13 11:37] LABS: PLATELET ESTIMATE SMEAR LOW (NORMAL)
[2017-05-13 11:41] LABS: PLATELET MORPHOLOGY NORMAL (NORMAL); SCAN/DIFF FINAL DIFF MANUAL
--- NOTE | 2017-05-13 11:41 | PD.OP ---
cc: Anthony Arzate MD Operative Report Date of Surgery: May 13, 2017 Preoperative Diagnosis: Left proximal humerus fracture, left glenohumeral joint dislocation Postoperative Diagnosis: Procedure: Open treatment of left glenohumeral joint dislocation, open reduction internal fixation left proximal humerus fracture Surgeon: Anthony Arzate Punch Machine Operator(s): SEKOU Perez PA-C The surgical procedure was assisted by my physician finance assistant. My P.A. presence was necessary throughout this case for the manipulation and positioning of the surgical extremity. My P.A. was assisting me throughout the duration of this procedure. The skill set of a physician finance assistant was medically necessary to complete this procedure. During the surgical case the surgical aide was working at the back table and the physician finance assistant was directly assisting me. Operation and Findings: Patient was seen and evaluated preoperatively. Patient was found to have a displaced left proximal humerus fracture with glenohumeral joint dislocation. He also has a severely comminuted open left elbow fracture dislocation. patient has been in the intensive care unit with severe head injury.. The risks and benefits of surgical and nonsurgical options were discussed in detail and informed consent was obtained for surgery. Patient was brought to the operating room and placed on or table. IV sedation and GETA were administered by anesthesiologist. The head of bed was elevated at all times to help keep intracranial pressures low. Antibiotics were given prior to incision. Operative arm and shoulder were prepped with alcohol followed by Hibiclens and draped usual sterile fashion. Timeout procedure was performed. Procedure began with a 6 inch incision over the anterior shoulder. Cephalic vein was identified. A deltopectoral approach was utilized. The fracture was now visualized. Soft tissue was retracted. A #5 FiberWire suture was placed into the rotator rotator cuff and greater tuberosity. A second suture was placed into the lesser tuberosity and subscapularis tendon. Attention was now turned to reduction of the glenohumeral joint dislocation. A threaded Schanz pin was placed into the humeral head. The joint was distracted. The humeral head was manipulated and reduced up to the glenoid. Fluoroscopy confirmed reduction of the humeral joint. Next attention was turned to open reduction internal fixation.. Gentle traction was applied. The humeral shaft was reduced to the humeral head. Fracture was manipulated to achieve excellent reduction. The greater and lesser tuberosity fragments were also reduced. Multiplanar fluoroscopy confirmed well aligned fracture. Multiple K wires were used to hold provisional fixation. A Synthes proximal humerus plate was selected. Plate was provisionally held in place K wires. 3.5 cortical screws were used to compress plate to bone. Fluoroscopy confirmed appropriate plate placement and fracture reduction. Multiple locking screws were now placed in the humeral head. Screws were predrilled and premeasured for appropriate length. Care was taken not to penetrate the articular surface. Additional screws were placed in the humeral shaft. The FiberWire suture was passed through the holes of the plate and sutured to the plate for additional stability. Final fluoroscopy revealed well aligned fracture with well-placed hardware. Wound was thoroughly irrigated. Fascia was closed with #1 Vicryl, subcutaneous tissues closed with 3 -0 Vicryl, and skin was closed with dominik. Sterile dressings were applied. Patient was placed into a long-arm splint for his left elbow injuries. He was placed into a swath to hold his left arm stable to his body. Patient transferred to the intensive care in critical condition.. Needle and sponge counts were correct. Anthony Arzate MD May 13, 2017 11:41
[2017-05-13] MEDS: levETIRAcetam INJ 500 MG in SODIUM CHLORIDE 0.9% INJ 100 ML IV SCH ×2 (12:30→21:08)
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
--- NOTE | 2017-05-13 14:30 | RADRPT ---
EXAM DATE/TIME: 05/13/2017 10:29 [facility] COMPARISON: No previous studies available for comparison. INDICATIONS : ORIF of the left humerus. MEDICAL HISTORY : Unobtainable. SURGICAL HISTORY : Unobtainable. ENCOUNTER: Subsequent ACUITY: 4 - 6 days PAIN SCORE: Non-responsive. LOCATION: Left humerus. FINDINGS: 4 magnified C. arm spot views are centered over the shoulder and labeled left. There is an orthopedic plate with multiple anchoring screws. Alignment seen. The anchoring screws appear contained within t he cortical confines of the humeral head. CONCLUSION: Limited images as detailed above. Derek Arreola Jr., MD on May 13, 2017 at 14:27 Board Certified Radiologist. This report was verified electronically.
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
[2017-05-13] MEDS: MAGNESIUM HYDROXIDE SUSP 30 ML CUP PO SCH (21:08)
[2017-05-14] VITALS (18 sets, daily range): BP systolic 122–150; BP diastolic 78–92; PULSE 67–90; RESP 17–20; TEMP 98.8–99.3; O2SAT 98–100
[2017-05-14] MEDS: ceFAZolin 2 GM PREMIX 50 ML IV SCH ×4 (00:02→23:57)
[2017-05-14] MEDS: METHOCARBAMOL 500 MG TAB PO SCH ×4 (00:03→23:56)
[2017-05-14] MEDS: ARTIFICIAL TEARS OPTH SOLN 15 ML BTL EACH EYE SCH ×5 (00:03→23:57)
[2017-05-14] MEDS: PROPOFOL 1000 MG/100 ML IV PRN ×6 (03:26→23:56)
[2017-05-14] MEDS: BENEPROTEIN POWDER 1 PACK PEG SCH ×3 (03:27→18:00)
[2017-05-14] MEDS: SODIUM CHLOR 0.9% 1000 ML INJ 1,000 ML IV SCH ×3 (03:47→22:38)
[2017-05-14 04:47] LABS: BLOOD GAS CARBOXYHEMOGLOBIN 1.8 % (0-4); BLOOD GAS HCO3 24 mmol/L (22-26); BLOOD GAS METHEMOGLOBIN 0.9 % (0-2); BLOOD GAS O2 HGB SATURATION 95 % (90-100); BLOOD GAS OXYGEN CONTENT 11.6 Vol % (12.0-20.0); BLOOD GAS PCO2 31 mmHg (38-42); BLOOD GAS PO2 85 mmHg (61-120); BLOOD GAS TOTAL HGB 8.7 G/DL (12.0-16.0); CRITICAL VALUE NO; DRAW SITE ART LINE; FIO2 40 %; OXYGEN DEVICE VENTILATOR; STAT NO; TEMP CORR TO 98.6; VENT SETTINGS 20/650/IT1.0/8PEEP
[2017-05-14] MEDS: fentaNYL 2,500 MCG/NS 250 ML IV PRN ×2 (05:59→17:34)
[2017-05-14 06:00] LABS: AUTOMATED NEUTROPHIL # 10.1 TH/MM3 (1.8-7.7); BASOPHIL % 0.3 % (0.0-2.0); EOSINOPHIL % 0.3 % (0.0-4.0); HEMATOCRIT 23.2 % (39.0-51.0); LYMPH % 14.5 % (9.0-44.0); LYMPHOCYTE # 1.9 TH/MM3 (1.0-4.8); MEAN CELL VOLUME 89.4 FL (80.0-100.0); MEAN CORPUSCULAR HGB CONC 35.7 % (32.0-36.0); MONO % 5.6 % (0.0-8.0); NEUT % 79.3 % (16.0-70.0); PLATELET COUNT 87 TH/MM3 (150-450); RED CELL DISTRIBUTION WIDTH 14.3 % (11.6-17.2); WHITE BLOOD COUNT 12.8 TH/MM3 (4.0-11.0)
[2017-05-14 06:01] LABS: HEMO FLAGS AUTO DIFF
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
[2017-05-14 06:32] LABS: CALCIUM-PROTEIN CORRECTED 8.1 MG/DL (8.5-10.1); POTASSIUM 3.9 MEQ/L (3.5-5.1); TOTAL BILIRUBIN ADULT 0.6 MG/DL (0.2-1.0)
[2017-05-14 07:28] LABS: BANDS 8 % (0-6); EOSINOPHILS 1 % (0-4); METAMYELOCYTES 1 % (0-1); NEUTROPHIL # MANUAL DIFF 10.8 TH/MM3 (1.8-7.7); POLYS (SEG NEUTROPHILS) 75 % (16-70); WBC DIFF SAMPLE 100
[2017-05-14] MEDS ORDERED: BISACODYL 10 MG SUPP RECTAL ONE (08:00)
[2017-05-14] MEDS: CHLORHEXIDINE 0.12% (ORAL KIT) 15 ML CUP MT SCH ×2 (08:00→20:32)
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
[2017-05-14 08:06] LABS: PLATELET ESTIMATE SMEAR LOW (NORMAL); PLATELET MORPHOLOGY NORMAL (NORMAL); SCAN/DIFF FINAL DIFF MANUAL
--- NOTE | 2017-05-14 08:27 | PD.ORT.PN ---
Subjective Subjective Remarks s/p open left elbow fx with I&D - POD 3 s/p right distal radius fx s/p left proximal humerus fracture s/p ORIF - POD 1 intubated/sedated Objective Vitals Vital Signs Date Time Temp Pulse Resp B/P (MAP) Pulse Ox O2 Delivery O2 Flow Rate FiO2 05/14/17 06:00 71 05/14/17 04:28 99 40 05/14/17 04:00 50 05/14/17 04:00 99.2 67 20 122/78 (93) 99 05/14/17 04:00 71 05/14/17 02:00 71 05/14/17 01:12 98 40 05/14/17 00:00 99.0 85 20 141/80 (100) 99 05/14/17 00:00 50 05/14/17 00:00 71 05/13/17 22:58 98 40 05/13/17 22:00 71 05/13/17 20:01 100 40 05/13/17 20:01 100 40 05/13/17 20:00 100 Mechanical Ventilator 40 05/13/17 20:00 99.0 79 22 136/81 (99) 99 05/13/17 20:00 79 05/13/17 20:00 50 05/13/17 18:00 76 05/13/17 16:00 100.1 73 20 140/74 (96) 99 05/13/17 16:00 50 05/13/17 16:00 76 05/13/17 15:17 100 50 05/13/17 14:00 75 05/13/17 12:53 99.2 102 20 153/85 96 05/13/17 12:11 97 40 05/13/17 12:00 102 05/13/17 12:00 80 05/13/17 12:00 99.2 102 20 152/83 (106) 95 05/13/17 09:20 100 100 05/13/17 09:17 99.7 95 20 136/67 100 I/O 05/13/17 05/13/17 05/13/17 05/14/17 05/14/17 05/14/17 07:00 15:00 23:00 07:00 15:00 23:00 Intake Total 2827 ml 1350 ml 2556 ml 2365 ml Output Total 750 ml 1950 ml 1510 ml 2100 ml Balance 2077 ml -600 ml 1046 ml 265 ml Intake IV Total 2093 ml 700 ml 1754 ml 1600 ml Tube Feeding 674 ml 332 ml 645 ml Packed Cells 650 ml 350 ml Tube Irrigant 60 ml 120 ml 120 ml Output Urine Total 600 ml 600 ml 1450 ml 2000 ml Gastric Drainage Total 0 ml Chest Tube Drainage Total 150 ml Drainage Total 60 ml 100 ml Estimated Blood Loss 350 ml Other 1000 ml # Bowel Movements 0 0 0 Result Diagram: 05/14/17 0545 05/14/1745 Imaging Last [address] 05/10/17599 Signed Impressions: Service Date/Time: Wednesday, May 10, 2017 04:22 - CONCLUSION: 1. Postsurgical changes as above. decreasing mass effect and midline shift 2. Evolving contusions Dmitriy Zeng MD Chest X-Ray 05/10/17599 Signed Impressions: Service Date/Time: Wednesday, May 10, 2017 04:59 - CONCLUSION: 1. Left basilar atelectasis. There is no evidence of pneumothorax. Dmitriy Zeng MD Objective Remarks Intubated Right upper extremity: splint in place. right wrist. Left upper extremity: +long arm splint in full extension. clean and dry. good perfusion of fingers. Assessment & Plan Assessment and Plan 1- TBI 2- right distal radius fracture 3- left severely comminuted open elbow fracture, limb threatening s/p I&D - POD 3 3- Comminuted Left Proximal Humerus Fx s/p ORIF - POD 1 -will plan to proceed with surgery for ORIF of right wrist potentially next week -obtain consents -maintain long arm splint at all times on left -maintain splint on right wrist -will not proceed with surgery of left elbow until cleared by neuro to be placed in lateral position. patient will need to be lateral for approx 2-3 hours. Tomas Jesus May 14, 2017 08:27
[2017-05-14] MEDS: SODIUM CHLORIDE 0.9% FLUSH 10 ML FLUSH IV FLUSH SCH ×2 (09:00→20:34)
[2017-05-14] MEDS: FAMOTIDINE 20 MG TAB PO SCH ×2 (09:13→20:34)
[2017-05-14] MEDS: DOCUSATE SODIUM 50 MG/SENNA 8.6 MG TAB PO SCH ×2 (09:13→20:34)
[2017-05-14] MEDS: GENTAMICIN 80 MG PREMIX 100 ML IV SCH (09:14)
[2017-05-14] MEDS: levETIRAcetam INJ 500 MG in SODIUM CHLORIDE 0.9% INJ 100 ML IV SCH ×2 (09:15→20:33)
[2017-05-14] MEDS: LACTULOSE SYRUP 20 GM/30 ML CUP PO SCH (09:22)
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
[2017-05-14] MEDS ORDERED: LIDOCAINE 2%/EPINEPHrine 1:100,000 20ML MDV INFIL ONE (11:00)
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
[2017-05-14] MEDS: MAGNESIUM HYDROXIDE SUSP 30 ML CUP PO SCH (20:33)
[2017-05-15] VITALS (17 sets, daily range): BP systolic 132–175; BP diastolic 68–97; PULSE 80–114; RESP 14–25; TEMP 98.7–100.7; O2SAT 98–100
[2017-05-15] MEDS: BENEPROTEIN POWDER 1 PACK PEG SCH ×3 (02:00→18:00)
[2017-05-15] MEDS: fentaNYL 2,500 MCG/NS 250 ML IV PRN (03:29)
[2017-05-15] MEDS: PROPOFOL 1000 MG/100 ML IV PRN ×3 (03:29→20:39)
--- NOTE | 2017-05-15 03:55 | RADRPT ---
EXAM DATE/TIME: 05/15/2017 04:00 [place] COMPARISON: CHEST SINGLE AP, May 14, 2017, 5:47. INDICATIONS : Respiratory failure, Subdural hematoma MEDICAL HISTORY : None. SURGICAL HISTORY : ORIF Left humerus ENCOUNTER: Subsequent ACUITY: 1 week PAIN SCORE: Non-responsive. LOCATION: Bilateral chest FINDINGS: 2 AP semierect views of the chest were obtained. The endotracheal tube remains in place with the tip approximately 4 cm above the gwen. The left-sided chest tube remaining in place with left apical pn eumothorax. There is new increased opacity obscuring the majority of the left hemithorax. The right l maria eugenia is clear. The right subclavian central venous line remains in place. Nasogastric tube is again se en coursing through the esophagus and into the stomach. There are multiple left rib fractures again n oted. CONCLUSION: 1. New large area of opacity in the left lung with right apical pneumothorax. 2. The left-sided chest tube remains in place. There are multiple left rib fractures. David Lawrence MD on May 15, 2017 at 3:52 Board Certified Radiologist. This report was verified electronically.
[2017-05-15 04:02] LABS: BLOOD GAS BASE EXCESS 2.2 mmol/L (-2-2); BLOOD GAS CARBOXYHEMOGLOBIN 2.1 % (0-4); BLOOD GAS HCO3 25 mmol/L (22-26); BLOOD GAS METHEMOGLOBIN 0.8 % (0-2); BLOOD GAS O2 HGB SATURATION 93 % (90-100); BLOOD GAS OXYGEN CONTENT 12.1 Vol % (12.0-20.0); BLOOD GAS PCO2 31 mmHg (38-42); BLOOD GAS PO2 78 mmHg (61-120); BLOOD GAS TOTAL HGB 9.2 G/DL (12.0-16.0); TEMP CORR TO 98.6
[2017-05-15 04:03] LABS: CRITICAL VALUE YES; DRAW SITE ART LINE; FIO2 40 %; OXYGEN DEVICE VENTILATOR; STAT NO; VENT SETTINGS PRVC/AC
[2017-05-15] MEDS: ARTIFICIAL TEARS OPTH SOLN 15 ML BTL EACH EYE SCH ×3 (05:41→18:00)
[2017-05-15 06:14] LABS: AUTOMATED NEUTROPHIL # 12.9 TH/MM3 (1.8-7.7); BASOPHIL # 0.1 TH/MM3 (0-0.2); BASOPHIL % 0.4 % (0.0-2.0); EOSINOPHIL % 0.2 % (0.0-4.0); HEMATOCRIT 25.7 % (39.0-51.0); LYMPH % 12.5 % (9.0-44.0); MEAN CORPUSCULAR HEMOGLOBIN 31.8 PG (27.0-34.0); MONO % 6.2 % (0.0-8.0); NEUT % 80.7 % (16.0-70.0); PLATELET COUNT 110 TH/MM3 (150-450); RED BLOOD COUNT 2.82 MIL/MM3 (4.50-5.90); RED CELL DISTRIBUTION WIDTH 14.3 % (11.6-17.2)
[2017-05-15 06:16] LABS: HEMO FLAGS AUTO DIFF
[2017-05-15 06:45] LABS: ANION GAP 7 MEQ/L (5-15); AST (GOT) 70 U/L (15-37); BICARBONATE 24.8 MEQ/L (21.0-32.0); BLOOD UREA NITROGEN 13 MG/DL (7-18); CHLORIDE 109 MEQ/L (98-107); GLOMERULAR FILTRATION RATE 179 ML/MIN (>89); SODIUM (NA) 141 MEQ/L (136-145)
[2017-05-15 06:47] LABS: ALT (GPT) 32 U/L (12-78)
[2017-05-15 06:49] LABS: ALKALINE PHOSPHATASE 61 U/L (45-117); TOTAL BILIRUBIN ADULT 0.7 MG/DL (0.2-1.0)
[2017-05-15] MEDS: CHLORHEXIDINE 0.12% (ORAL KIT) 15 ML CUP MT SCH ×2 (07:08→20:37)
[2017-05-15] MEDS: SODIUM CHLOR 0.9% 1000 ML INJ 1,000 ML IV SCH ×2 (07:49→18:10)
[2017-05-15 07:53] LABS: BANDS 10 % (0-6); BASOPHILS 1 % (0-2); METAMYELOCYTES 2 % (0-1); NEUTROPHIL # MANUAL DIFF 13.8 TH/MM3 (1.8-7.7); PLATELET ESTIMATE SMEAR LOW (NORMAL); PLATELET MORPHOLOGY NORMAL (NORMAL); POLYS (SEG NEUTROPHILS) 74 % (16-70); SCAN/DIFF FINAL DIFF MANUAL; WBC DIFF SAMPLE 100
[2017-05-15] MEDS: SODIUM CHLORIDE 0.9% FLUSH 10 ML FLUSH IV FLUSH SCH ×2 (08:22→20:38)
[2017-05-15] MEDS: DOCUSATE SODIUM 50 MG/SENNA 8.6 MG TAB PO SCH ×2 (08:22→20:38)
[2017-05-15] MEDS: LACTULOSE SYRUP 20 GM/30 ML CUP PO SCH (08:22)
[2017-05-15] MEDS: METHOCARBAMOL 500 MG TAB PO SCH ×2 (08:22→18:09)
[2017-05-15] MEDS: FAMOTIDINE 20 MG TAB PO SCH ×2 (08:22→20:38)
[2017-05-15] MEDS: ceFAZolin 2 GM PREMIX 50 ML IV SCH (08:23)
[2017-05-15] MEDS: levETIRAcetam INJ 500 MG in SODIUM CHLORIDE 0.9% INJ 100 ML IV SCH ×2 (08:23→20:39)
--- NOTE | 2017-05-15 09:59 | PD.ORT.PN ---
Subjective Subjective Remarks intubated and sedated Objective Vitals Vital Signs Date Time Temp Pulse Resp B/P (MAP) Pulse Ox O2 Delivery O2 Flow Rate FiO2 05/15/17 08:37 98 40 05/15/17 08:00 100.0 92 22 175/92 (119) 100 05/15/17 08:00 40 05/15/17 08:00 96 05/15/17 07:00 99 Mechanical Ventilator 40 05/15/17 06:00 95 05/15/17 04:23 99 40 05/15/17 04:00 40 05/15/17 04:00 98.8 90 19 156/97 (116) 98 05/15/17 04:00 89 05/15/17 02:00 92 05/15/17 01:12 100 40 05/15/17 00:00 90 05/15/17 00:00 98.7 91 18 145/84 (104) 99 05/15/17 00:00 40 05/14/17 22:00 85 05/14/17 20:00 99 Mechanical Ventilator 40 05/14/17 20:00 40 05/14/17 20:00 90 05/14/17 20:00 99.0 90 17 148/81 (103) 99 05/14/17 19:41 99 40 05/14/17 18:00 87 05/14/17 16:00 99 40 05/14/17 16:00 81 05/14/17 16:00 99.3 86 20 143/80 (101) 99 05/14/17 16:00 40 05/14/17 14:00 81 05/14/17 12:00 40 05/14/17 12:00 99.0 88 20 150/92 (111) 99 05/14/17 12:00 80 05/14/17 11:48 98 40 05/14/17 10:00 69 I/O 05/14/17 05/14/17 05/14/17 05/15/17 05/15/17 05/15/17 07:00 15:00 23:00 07:00 15:00 23:00 Intake Total 2365 ml 4067 ml 1180 ml Output Total 2100 ml 1840 ml 2700 ml Balance 265 ml 2227 ml -1520 ml Intake IV Total 1600 ml 3022 ml 350 ml Tube Feeding 645 ml 695 ml 710 ml Tube Irrigant 120 ml 350 ml 120 ml Output Urine Total 2000 ml 1700 ml 2500 ml Chest Tube Drainage Total 140 ml Drainage Total 100 ml 200 ml # Bowel Movements 0 1 2 Result Diagram: 05/15/17 0550 05/15/17 0550 Imaging Last [address] 05/10/17599 Signed Impressions: Service Date/Time: Wednesday, May 10, 2017 04:22 - CONCLUSION: 1. Postsurgical changes as above. decreasing mass effect and midline shift 2. Evolving contusions Dmitriy Zeng MD Chest X-Ray 05/10/17599 Signed Impressions: Service Date/Time: Wednesday, May 10, 2017 04:59 - CONCLUSION: 1. Left basilar atelectasis. There is no evidence of pneumothorax. Dmitriy Zeng MD Objective Remarks Intubated Right upper extremity: splint in place. right wrist. Left upper extremity: +long arm splint in full extension. clean and dry. good perfusion of fingers. Assessment & Plan Assessment and Plan 1- TBI 2- right distal radius fracture 3- left severely comminuted open elbow fracture, limb threatening s/p I&D - POD 4 3- Comminuted Left Proximal Humerus Fx s/p ORIF - POD 2 -will plan to proceed with surgery for ORIF of right wrist potentially next week -obtain consents -maintain long arm splint at all times on left -maintain splint on right wrist -will not proceed with surgery of left elbow until cleared by neuro to be placed in lateral position. patient will need to be lateral for approx 2-3 hours. -critical care management Elio Caro May 15, 2017 09:59
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
--- NOTE | 2017-05-15 11:26 | RADRPT ---
EXAM DATE/TIME: 05/15/2017 11:55 [facility] COMPARISON: CHEST SINGLE AP, May 15, 2017, 4:00. INDICATIONS : Post bronch. MEDICAL HISTORY : None. SURGICAL HISTORY : ORIF left humerus. ENCOUNTER: Subsequent ACUITY: 1 week PAIN SCORE: Non-responsive. LOCATION: Bilateral chest FINDINGS: ET tube, NG tube and left chest tube are well placed. There is continued consolidation/atelectasis in the left mid and lower lung. There appears to be a left pleural effusion. Left rib fractures are see n. There is a distal left clavicle fracture. Surgical hardware is seen in the left proximal humerus. There is a right subclavian line in good position. CONCLUSION: Persistent left mid to lower lung atelectasis/consolidation and effusion with a left chest tube. Taz Junior MD on May 15, 2017 at 11:22 Board Certified Radiologist. This report was verified electronically.
[2017-05-15] MEDS: PIPERACIL-TAZO 3.375 GM PREMIX 50 ML IV SCH ×2 (11:44→18:10)
[2017-05-15 11:55] LABS: BLOOD, URINE NEG (NEG); COMMENT (UR) CATH-CULT NOT IND; CULTURE IF INDICATED CATH CULTURE NOT IND; GLUCOSE,URINE NEG (NEG); KETONE, URINE NEG (NEG); NITRITE,URINE NEG (NEG); URINE COLOR YELLOW (YELLW/STRAW)
[2017-05-15] MEDS: VANCOMYCIN INJ 1,000 MG in SODIUM CHLOR 0.9% 250 ML INJ 250 ML IV SCH (12:50)
--- NOTE | 2017-05-15 13:08 | RADRPT ---
EXAM DATE/TIME: 05/15/2017 11:53 [place] COMPARISON: No previous studies available for comparison. INDICATIONS : Bilateral leg swelling. MEDICAL HISTORY : Substance abuse. Unable to obtain any further medical history. SURGICAL HISTORY : Unable to obtain any further surgical history. ENCOUNTER: Subsequent ACUITY: 1 day PAIN SCORE: Non-responsive LOCATION: Bilateral legs. TECHNIQUE: Venous ultrasound of the left and right leg was performed from the inguinal ligament to the proximal calf. Real-time, color Doppler and spectral tracing, compression and augmentation techniques were us ed. FINDINGS: RIGHT LEG: There is normal compressibility of the deep venous system from the inguinal region to the proximal ca lf. No echogenic clot is seen in the lumen of the common femoral, femoral, popliteal, and posterior tibial veins. There is a normal response of the venous system to proximal and distal augmentation an d respiration. LEFT LEG: There is thrombus in the femoral vein, popliteal vein, peroneal vein posterior tibial vein and greate r saphenous vein. These veins are not fully compressible. There is echogenic material within them. Th e common femoral vein could not be visualized secondary to a femoral line and dressing. CONCLUSION: 1. Thrombus involving the left femoral vein, popliteal vein, peroneal vein, and greater saphenous vei ns. 2. No DVT is seen on the right side. Taz Junior MD on May 15, 2017 at 13:03 Board Certified Radiologist. This report was verified electronically.
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
--- NOTE | 2017-05-15 17:27 | EKG ---
Date Performed: 05/14/2017 Time Performed: 13:54:04 PTAGE: 41 years EKG: Sinus rhythm . Short MN interval Poor R wave progression - probable normal variant Borderline ECG NO PREVIOUS TRACING Compared to prior tracing no significant change DOCTOR: Claudia Arias Interpretating Date/Time 05/15/2017 17:25:54
[2017-05-15] MEDS: MAGNESIUM HYDROXIDE SUSP 30 ML CUP PO SCH (20:38)
[2017-05-16] VITALS (17 sets, daily range): BP systolic 118–139; BP diastolic 60–91; PULSE 74–98; RESP 14–20; TEMP 99.1–100.3; O2SAT 100
[2017-05-16] MEDS: PIPERACIL-TAZO 3.375 GM PREMIX 50 ML IV SCH ×5 (01:06→23:42)
[2017-05-16] MEDS: VANCOMYCIN INJ 1,000 MG in SODIUM CHLOR 0.9% 250 ML INJ 250 ML IV SCH ×2 (01:06→12:08)
[2017-05-16] MEDS: PROPOFOL 1000 MG/100 ML IV PRN ×3 (01:06→11:38)
[2017-05-16] MEDS: METHOCARBAMOL 500 MG TAB PO SCH ×3 (01:06→17:04)
[2017-05-16] MEDS: fentaNYL 2,500 MCG/NS 250 ML IV PRN ×3 (01:54→23:42)
[2017-05-16] MEDS: BENEPROTEIN POWDER 1 PACK PEG SCH ×3 (02:00→17:04)
[2017-05-16] MEDS: SODIUM CHLOR 0.9% 1000 ML INJ 1,000 ML IV SCH ×3 (04:04→23:42)
[2017-05-16 05:00] LABS: BLOOD GAS BASE EXCESS 0.3 mmol/L (-2-2); BLOOD GAS CARBOXYHEMOGLOBIN 2.1 % (0-4); BLOOD GAS HCO3 24 mmol/L (22-26); BLOOD GAS METHEMOGLOBIN 0.8 % (0-2); BLOOD GAS O2 HGB SATURATION 96 % (90-100); BLOOD GAS OXYGEN CONTENT 14.3 Vol % (12.0-20.0); BLOOD GAS PCO2 37 mmHg (38-42); BLOOD GAS PO2 119 mmHg (61-120); BLOOD GAS TOTAL HGB 10.4 G/DL (12.0-16.0); CRITICAL VALUE NO; FIO2 40 %; OXYGEN DEVICE VENT; VENT SETTINGS SEE COMMENTS
[2017-05-16 05:01] LABS: DRAW SITE ART LINE; STAT NO; TEMP CORR TO 98.6; ULNAR PULSE PRESENT
[2017-05-16 05:01] LABS: AUTOMATED NEUTROPHIL # 10.3 TH/MM3 (1.8-7.7); BASOPHIL % 0.1 % (0.0-2.0); EOSINOPHIL % 0.3 % (0.0-4.0); HEMATOCRIT 25.4 % (39.0-51.0); LYMPH % 13.6 % (9.0-44.0); LYMPHOCYTE # 1.8 TH/MM3 (1.0-4.8); MEAN CELL VOLUME 92.4 FL (80.0-100.0); MEAN CORPUSCULAR HEMOGLOBIN 31.1 PG (27.0-34.0); MEAN CORPUSCULAR HGB CONC 33.7 % (32.0-36.0); MONO % 7.8 % (0.0-8.0); NEUT % 78.2 % (16.0-70.0); PLATELET COUNT 124 TH/MM3 (150-450); RED BLOOD COUNT 2.75 MIL/MM3 (4.50-5.90); RED CELL DISTRIBUTION WIDTH 14.8 % (11.6-17.2); WHITE BLOOD COUNT 13.2 TH/MM3 (4.0-11.0)
[2017-05-16 05:03] LABS: HEMO FLAGS AUTO DIFF
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
[2017-05-16] MEDS: ARTIFICIAL TEARS OPTH SOLN 15 ML BTL EACH EYE SCH ×5 (05:19→23:43)
[2017-05-16 05:35] LABS: BICARBONATE 25.8 MEQ/L (21.0-32.0); CALCIUM-PROTEIN CORRECTED 7.9 MG/DL (8.5-10.1); POTASSIUM 4.2 MEQ/L (3.5-5.1); TOTAL BILIRUBIN ADULT 0.8 MG/DL (0.2-1.0)
[2017-05-16 06:15] LABS: BANDS 1 % (0-6); MYELOCYTES 1 % (0-0); NEUTROPHIL # MANUAL DIFF 11.2 TH/MM3 (1.8-7.7); POLYS (SEG NEUTROPHILS) 83 % (16-70); WBC DIFF SAMPLE 100
[2017-05-16 06:16] LABS: PLATELET ESTIMATE SMEAR LOW (NORMAL); PLATELET MORPHOLOGY NORMAL (NORMAL); SCAN/DIFF FINAL DIFF MANUAL
[2017-05-16] MEDS: CHLORHEXIDINE 0.12% (ORAL KIT) 15 ML CUP MT SCH ×2 (07:19→20:23)
--- NOTE | 2017-05-16 08:16 | PD.ORT.PN ---
Subjective Subjective Remarks Remains intubated Objective Vitals Vital Signs Date Time Temp Pulse Resp B/P (MAP) Pulse Ox O2 Delivery O2 Flow Rate FiO2 05/16/17 07:00 99 Mechanical Ventilator 40 05/16/17 06:00 90 05/16/17 04:01 100 45 05/16/17 04:00 79 05/16/17 04:00 40 05/16/17 04:00 99.4 74 14 118/60 (79) 100 05/16/17 02:00 97 05/16/17 00:39 100 55 05/16/17 00:00 98 05/16/17 00:00 100.3 98 17 130/66 (87) 100 05/16/17 00:00 45 05/15/17 22:00 80 05/15/17 21:48 100 65 05/15/17 20:00 100.7 92 14 132/68 (89) 100 05/15/17 20:00 55 05/15/17 20:00 84 05/15/17 19:00 99 Mechanical Ventilator 40 05/15/17 18:00 97 05/15/17 16:56 100 65 05/15/17 16:00 100.0 114 25 138/91 (107) 100 05/15/17 16:00 40 05/15/17 16:00 114 05/15/17 14:00 94 05/15/17 12:00 40 05/15/17 12:00 100.4 104 21 150/85 (106) 100 05/15/17 12:00 112 05/15/17 10:00 100 05/15/17 08:37 98 40 I/O 05/15/17 05/15/17 05/15/17 05/16/17 05/16/17 05/16/17 07:00 15:00 23:00 07:00 15:00 23:00 Intake Total 1180 ml 50 ml 1961 ml 1694 ml Output Total 2700 ml 2300 ml 2650 ml Balance -1520 ml 50 ml -339 ml -956 ml Intake IV Total 350 ml 50 ml 1600 ml 1237 ml Tube Feeding 710 ml 361 ml 457 ml Tube Irrigant 120 ml Output Urine Total 2500 ml 2200 ml 2550 ml Stool Total 50 ml Chest Tube Drainage Total 50 ml Drainage Total 200 ml 100 ml # Bowel Movements 2 0 Result Diagram: 05/16/17 0430 05/16/17 0430 Imaging Last [address] 05/10/17599 Signed Impressions: Service Date/Time: Wednesday, May 10, 2017 04:22 - CONCLUSION: 1. Postsurgical changes as above. decreasing mass effect and midline shift 2. Evolving contusions Dmitriy Zeng MD Chest X-Ray 05/10/17599 Signed Impressions: Service Date/Time: Wednesday, May 10, 2017 04:59 - CONCLUSION: 1. Left basilar atelectasis. There is no evidence of pneumothorax. Dmitriy Zeng MD Objective Remarks Intubated Right upper extremity: splint in place. right wrist. Left upper extremity: +long arm splint in full extension. clean and dry. good perfusion of fingers. Assessment & Plan Assessment and Plan 1- TBI 2- right distal radius fracture 3- left severely comminuted open elbow fracture, limb threatening s/p I&D - POD 5 3- Comminuted Left Proximal Humerus Fx s/p ORIF - POD 3 -will plan to proceed with surgery for ORIF of right wrist potentially next week -obtain consents -maintain long arm splint at all times on left -maintain splint on right wrist -will not proceed with surgery of left elbow until cleared by neuro to be placed in lateral position. patient will need to be lateral for approx 2-3 hours. -critical care management Selina Kaur MD May 16, 2017 08:16
[2017-05-16] MEDS: FAMOTIDINE 20 MG TAB PO SCH ×2 (08:36→20:22)
[2017-05-16] MEDS: levETIRAcetam INJ 500 MG in SODIUM CHLORIDE 0.9% INJ 100 ML IV SCH ×2 (08:36→20:23)
[2017-05-16] MEDS: LACTULOSE SYRUP 20 GM/30 ML CUP PO SCH (08:36)
[2017-05-16] MEDS: DOCUSATE SODIUM 50 MG/SENNA 8.6 MG TAB PO SCH ×2 (08:36→20:22)
[2017-05-16] MEDS: SODIUM CHLORIDE 0.9% FLUSH 10 ML FLUSH IV FLUSH SCH ×2 (08:36→20:22)
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
[2017-05-16] MEDS: MAGNESIUM HYDROXIDE SUSP 30 ML CUP PO SCH (20:22)
[2017-05-17] VITALS (18 sets, daily range): BP systolic 124–153; BP diastolic 74–82; PULSE 80–102; RESP 14–23; TEMP 99–99.9; O2SAT 97–100
[2017-05-17] MEDS: PROPOFOL 1000 MG/100 ML IV PRN ×4 (00:59→21:16)
[2017-05-17] MEDS: METHOCARBAMOL 500 MG TAB PO SCH ×3 (01:49→17:37)
[2017-05-17] MEDS: VANCOMYCIN INJ 1,000 MG in SODIUM CHLOR 0.9% 250 ML INJ 250 ML IV SCH ×2 (01:50→12:25)
[2017-05-17] MEDS: BENEPROTEIN POWDER 1 PACK PEG SCH ×3 (01:50→17:38)
[2017-05-17 04:26] LABS: AUTOMATED NEUTROPHIL # 10.3 TH/MM3 (1.8-7.7); BASOPHIL % 0.3 % (0.0-2.0); EOSINOPHIL % 0.3 % (0.0-4.0); HEMATOCRIT 25.7 % (39.0-51.0); HEMO FLAGS DIFF FINAL; LYMPH % 12.1 % (9.0-44.0); LYMPHOCYTE # 1.6 TH/MM3 (1.0-4.8); MEAN CELL VOLUME 90.5 FL (80.0-100.0); MEAN CORPUSCULAR HEMOGLOBIN 30.4 PG (27.0-34.0); MEAN CORPUSCULAR HGB CONC 33.5 % (32.0-36.0); MONO % 7.1 % (0.0-8.0); NEUT % 80.2 % (16.0-70.0); PLATELET COUNT 159 TH/MM3 (150-450); RED BLOOD COUNT 2.84 MIL/MM3 (4.50-5.90); WHITE BLOOD COUNT 12.9 TH/MM3 (4.0-11.0)
[2017-05-17 04:50] LABS: ANION GAP 6 MEQ/L (5-15); AST (GOT) 73 U/L (15-37); BICARBONATE 24.8 MEQ/L (21.0-32.0); BLOOD UREA NITROGEN 14 MG/DL (7-18); CHLORIDE 106 MEQ/L (98-107); GLOMERULAR FILTRATION RATE 192 ML/MIN (>89); POTASSIUM 4.2 MEQ/L (3.5-5.1); SODIUM (NA) 137 MEQ/L (136-145)
[2017-05-17 04:55] LABS: ALKALINE PHOSPHATASE 76 U/L (45-117); ALT (GPT) 48 U/L (12-78); TOTAL BILIRUBIN ADULT 0.8 MG/DL (0.2-1.0)
--- NOTE | 2017-05-17 06:05 | RADRPT ---
EXAM DATE/TIME: 05/17/2017 04:57 [place] COMPARISON: CHEST SINGLE AP, May 16, 2017, 5:06. INDICATIONS : Short of breath. MEDICAL HISTORY : None. SURGICAL HISTORY : None. ENCOUNTER: Subsequent ACUITY: 1 week PAIN SCORE: 0/10 LOCATION: Bilateral chest FINDINGS: A single view of the chest demonstrates left pleural-parenchymal density. Left-sided chest tube witho ut definite pneumothorax. Multiple left-sided rib fractures. Heart mildly enlarged. Right subclavian central line in stable position. Left clavicle fracture. Plate and screws left proximal humerus. CONCLUSION: 1. Left pleural-parenchymal density, stable. 2. Left-sided chest tube without pneumothorax. Ar Bobby MD on May 17, 2017 at 6:02 Board Certified Radiologist. This report was verified electronically.
[2017-05-17] MEDS: PIPERACIL-TAZO 3.375 GM PREMIX 50 ML IV SCH ×3 (06:16→17:38)
[2017-05-17] MEDS: ARTIFICIAL TEARS OPTH SOLN 15 ML BTL EACH EYE SCH ×3 (06:16→17:56)
[2017-05-17 06:22] LABS: BLOOD GAS BASE EXCESS -0.1 mmol/L (-2-2); BLOOD GAS CARBOXYHEMOGLOBIN 2.2 % (0-4); BLOOD GAS HCO3 24 mmol/L (22-26); BLOOD GAS METHEMOGLOBIN 0.7 % (0-2); BLOOD GAS O2 HGB SATURATION 96 % (90-100); BLOOD GAS OXYGEN CONTENT 14.9 Vol % (12.0-20.0); BLOOD GAS PCO2 35 mmHg (38-42); BLOOD GAS PO2 125 mmHg (61-120); BLOOD GAS TOTAL HGB 10.9 G/DL (12.0-16.0); CRITICAL VALUE NO; OXYGEN DEVICE VENT; TEMP CORR TO 98.6
[2017-05-17 06:23] LABS: DRAW SITE ART LINE; FIO2 40 %; STAT NO; ULNAR PULSE PRESENT; VENT SETTINGS SEE COMMENTS
--- NOTE | 2017-05-17 07:31 | PD.ORT.PN ---
Subjective Subjective Remarks s/p open left elbow fx with I&D - POD 7 s/p right distal radius fx s/p left proximal humerus fracture s/p ORIF - POD 4 intubated/sedated neuro status unchanged. family considering palliative care Objective Vitals Vital Signs Date Time Temp Pulse Resp B/P (MAP) Pulse Ox O2 Delivery O2 Flow Rate FiO2 05/17/17 04:10 100 40 05/17/17 04:00 99.7 94 19 153/76 (101) 100 05/17/17 04:00 93 05/17/17 04:00 40 05/17/17 02:00 85 05/17/17 00:45 100 40 05/17/17 00:00 99.9 98 20 124/77 (93) 100 05/17/17 00:00 98 05/17/17 00:00 40 05/16/17 22:00 94 05/16/17 20:11 100 40 05/16/17 20:00 97 05/16/17 20:00 99.7 97 20 139/91 (107) 100 05/16/17 20:00 40 05/16/17 19:00 100 Mechanical Ventilator 40 05/16/17 18:00 94 05/16/17 17:07 100 40 05/16/17 16:00 85 05/16/17 16:00 99.3 96 20 135/69 (91) 100 05/16/17 16:00 40 05/16/17 14:00 74 05/16/17 12:00 40 05/16/17 12:00 86 05/16/17 12:00 99.5 86 16 138/67 (90) 100 05/16/17 10:00 90 05/16/17 08:29 100 40 05/16/17 08:00 90 05/16/17 08:00 99.1 84 16 137/71 (93) 100 05/16/17 08:00 40 I/O 05/16/17 05/16/17 05/16/17 05/17/17 05/17/17 05/17/17 07:00 15:00 23:00 07:00 15:00 23:00 Intake Total 1694 ml 155 ml 4246 ml Output Total 2650 ml 3165 ml Balance -956 ml 155 ml 1081 ml Intake IV Total 1237 ml 155 ml 3650 ml Tube Feeding 457 ml 596 ml Output Urine Total 2550 ml 2700 ml Gastric Drainage Total 400 ml Chest Tube Drainage Total 65 ml Drainage Total 100 ml # Bowel Movements 0 Result Diagram: 05/17/1740905/17/17409 Imaging Last [address] 05/10/17599 Signed Impressions: Service Date/Time: Wednesday, May 10, 2017 04:22 - CONCLUSION: 1. Postsurgical changes as above. decreasing mass effect and midline shift 2. Evolving contusions Dmitriy Zeng MD Chest X-Ray 05/10/17599 Signed Impressions: Service Date/Time: Wednesday, May 10, 2017 04:59 - CONCLUSION: 1. Left basilar atelectasis. There is no evidence of pneumothorax. Dmitriy Zeng MD Objective Remarks Intubated Right upper extremity: splint in place. right wrist. Left upper extremity: +long arm splint in full extension. clean and dry. good perfusion of fingers. Assessment & Plan Assessment and Plan 1- TBI 2- right distal radius fracture 3- left severely comminuted open elbow fracture, limb threatening s/p I&D - POD 6 3- Comminuted Left Proximal Humerus Fx s/p ORIF - POD 4 -will plan to proceed with surgery for ORIF of right wrist potentially next week -obtain consents -maintain long arm splint at all times on left -maintain splint on right wrist -will not proceed with surgery of left elbow until cleared by neuro to be placed in lateral position. patient will need to be lateral for approx 2-3 hours. -critical care management -spoke with Dr Olvera regarding patients prognosis. if family decides to withdraw care, will not proceed with any additional surgical intervention. He will confer with family and let us know Tomas eJsus May 17, 2017 07:31
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
[2017-05-17] MEDS: SODIUM CHLOR 0.9% 1000 ML INJ 1,000 ML IV SCH ×2 (09:45→12:30)
[2017-05-17] MEDS: levETIRAcetam INJ 500 MG in SODIUM CHLORIDE 0.9% INJ 100 ML IV SCH ×2 (09:57→21:15)
[2017-05-17] MEDS: LACTULOSE SYRUP 20 GM/30 ML CUP PO SCH (09:57)
[2017-05-17] MEDS: DOCUSATE SODIUM 50 MG/SENNA 8.6 MG TAB PO SCH ×2 (09:58→21:00)
[2017-05-17] MEDS: FAMOTIDINE 20 MG TAB PO SCH ×2 (09:58→21:15)
[2017-05-17] MEDS: SODIUM CHLORIDE 0.9% FLUSH 10 ML FLUSH IV FLUSH SCH ×2 (09:58→21:15)
[2017-05-17] MEDS: CHLORHEXIDINE 0.12% (ORAL KIT) 15 ML CUP MT SCH ×2 (10:14→21:14)
[2017-05-17] MEDS: fentaNYL 2,500 MCG/NS 250 ML IV PRN (11:39)
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
--- NOTE | 2017-05-17 14:25 | PD.RAD ---
Post Procedure Progress Note Pre Procedure Diagnosis: (1) Traumatic brain injury Post Procedure Diagnosis: (1) Traumatic brain injury Procedure Date: May 17, 2017 Supervising Radiologist: Derek Arreola JR Proceduralist/Assist: Trevor Fitzgerald RT(R), Paras Medina RT(R)() Anesthesia: Other Plan of Activity Patient to Unit: Critical Care Patient Condition: Fair See PACS Report for procedural detail/treatment Vascular-Venous Procedure Procedure 1 Procedure(s): Retrievable IVC Filter Access Access Site(s): Right Jugular Vein Findings: Placed retrievable IVC filter. In good position. Plan Filter can be removed up to one year from its placement Jr. Maxwell,Derek Ascencio MD May 17, 2017 14:25
[2017-05-17] MEDS ORDERED: IOHEXOL 350 MG/ML 50 ML BTL (for RAD DIAG) IVCONTRAST ONE (14:52)
--- NOTE | 2017-05-17 15:08 | PD.CONS ---
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 prompt me to consider important information that might be impacting today's encounter and assessment, information from prior notes written by myself or my colleagues may have been "brought forward" into today's note. My signature on this note, however, is an attestation that I personally performed the exam, history, and/or decision-making noted today, and, unless otherwise indicated, the interactions with patient, family, and staff as well as the review of records all occurred today. I also attest that the listed assessment and stated plan reflect my best clinical judgment today based on the combination of historical information, prior notes, and today's exam/ interactions. When time spent is documented, it refers only to time spent today by the signer, or if indicated, combined time spent today by collaborating physician/nurse practitioner. (Tiffany Morris) Collaborating MD Comments Chart reviewed. Case discussed with palliative care FIRMWARE DEVELOPER. Above note reviewed and I concur. . (Sid Coleman MD) Tiffany Morris May 17, 2017 15:08 Sid Coleman MD May 20, 2017 17:11
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
[2017-05-17] MEDS: MAGNESIUM HYDROXIDE SUSP 30 ML CUP PO SCH (21:00)
[2017-05-17] MEDS: ACETAMINOPHEN 650 MG/20.3 ML UDC PO PRN (22:59)
[2017-05-18] VITALS (18 sets, daily range): BP systolic 138–147; BP diastolic 79–91; PULSE 82–106; RESP 19–24; TEMP 99–100.8; O2SAT 98–100
[2017-05-18] MEDS: ARTIFICIAL TEARS OPTH SOLN 15 ML BTL EACH EYE SCH ×5 (00:14→23:54)
[2017-05-18] MEDS: PIPERACIL-TAZO 3.375 GM PREMIX 50 ML IV SCH ×2 (00:14→05:37)
[2017-05-18] MEDS: METHOCARBAMOL 500 MG TAB PO SCH ×3 (00:14→18:17)
[2017-05-18] MEDS: BENEPROTEIN POWDER 1 PACK PEG SCH ×3 (02:10→18:00)
[2017-05-18 03:59] LABS: BLOOD GAS BASE EXCESS 0.2 mmol/L (-2-2); BLOOD GAS CARBOXYHEMOGLOBIN 2.3 % (0-4); BLOOD GAS HCO3 24 mmol/L (22-26); BLOOD GAS METHEMOGLOBIN 0.6 % (0-2); BLOOD GAS O2 HGB SATURATION 95 % (90-100); BLOOD GAS OXYGEN CONTENT 11.7 Vol % (12.0-20.0); BLOOD GAS PCO2 33 mmHg (38-42); BLOOD GAS PO2 94 mmHg (61-120); BLOOD GAS TOTAL HGB 8.7 G/DL (12.0-16.0); CRITICAL VALUE NO; OXYGEN DEVICE VENTILATOR; TEMP CORR TO 98.6
[2017-05-18 04:00] LABS: DRAW SITE ART LINE; FIO2 40 %; STAT NO; VENT SETTINGS PRVC/AC
[2017-05-18] MEDS: PROPOFOL 1000 MG/100 ML IV PRN (04:30)
[2017-05-18] MEDS: fentaNYL 2,500 MCG/NS 250 ML IV PRN ×2 (04:30→22:24)
[2017-05-18 04:57] LABS: AUTOMATED NEUTROPHIL # 12.4 TH/MM3 (1.8-7.7); BASOPHIL % 0.3 % (0.0-2.0); EOSINOPHIL % 0.2 % (0.0-4.0); HEMATOCRIT 24.7 % (39.0-51.0); HEMO FLAGS DIFF FINAL; LYMPH % 11.3 % (9.0-44.0); LYMPHOCYTE # 1.7 TH/MM3 (1.0-4.8); MEAN CORPUSCULAR HEMOGLOBIN 30.9 PG (27.0-34.0); MEAN CORPUSCULAR HGB CONC 34.3 % (32.0-36.0); MONO % 7.4 % (0.0-8.0); NEUT % 80.8 % (16.0-70.0); PLATELET COUNT 187 TH/MM3 (150-450); RED BLOOD COUNT 2.74 MIL/MM3 (4.50-5.90); RED CELL DISTRIBUTION WIDTH 14.6 % (11.6-17.2); WHITE BLOOD COUNT 15.3 TH/MM3 (4.0-11.0)
[2017-05-18 05:24] LABS: ALT (GPT) 58 U/L (12-78); ANION GAP 7 MEQ/L (5-15); AST (GOT) 69 U/L (15-37); BICARBONATE 23.5 MEQ/L (21.0-32.0); BLOOD UREA NITROGEN 15 MG/DL (7-18); CHLORIDE 102 MEQ/L (98-107); GLOMERULAR FILTRATION RATE 207 ML/MIN (>89); POTASSIUM 4.1 MEQ/L (3.5-5.1); SODIUM (NA) 132 MEQ/L (136-145)
[2017-05-18 05:27] LABS: ALKALINE PHOSPHATASE 89 U/L (45-117); TOTAL BILIRUBIN ADULT 0.7 MG/DL (0.2-1.0)
--- NOTE | 2017-05-18 06:41 | RADRPT ---
EXAM DATE/TIME: 05/18/2017 06:24 [facility] COMPARISON: CHEST SINGLE AP, May 17, 2017, 4:57. INDICATIONS : Short of breath. MEDICAL HISTORY : None. SURGICAL HISTORY : None. ENCOUNTER: Subsequent ACUITY: 1 week PAIN SCORE: Non-responsive. LOCATION: Bilateral chest FINDINGS: A single view of the chest demonstrates left basilar pleural-parenchymal density. Left-sided chest tu be seen without definite pneumothorax. Multiple left-sided rib fractures. Endotracheal tube, nasogast casi tube and right subclavian central line are stable in position. Right lung remains clear. Heart is enlarged. Osseous structures are intact. CONCLUSION: 1. Stable left basilar pleural-parenchymal density. 2. Left-sided chest tube without pneumothorax. Ar Bobby MD on May 18, 2017 at 6:39 Board Certified Radiologist. This report was verified electronically.
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
[2017-05-18] MEDS: LACTULOSE SYRUP 20 GM/30 ML CUP PO SCH (09:00)
[2017-05-18] MEDS: DOCUSATE SODIUM 50 MG/SENNA 8.6 MG TAB PO SCH ×2 (09:00→21:00)
[2017-05-18] MEDS ORDERED: ACETAMINOPHEN 1000 MG/100 ML 100 ML IV PRN (10:15)
[2017-05-18] MEDS: levETIRAcetam INJ 500 MG in SODIUM CHLORIDE 0.9% INJ 100 ML IV SCH ×2 (10:19→21:09)
[2017-05-18] MEDS: CHLORHEXIDINE 0.12% (ORAL KIT) 15 ML CUP MT SCH ×2 (10:19→21:08)
[2017-05-18] MEDS: SODIUM CHLORIDE 0.9% FLUSH 10 ML FLUSH IV FLUSH SCH ×2 (10:20→21:09)
[2017-05-18] MEDS: LEVOFLOXACIN 500 MG PREMIX INJ 100 ML IV SCH (10:20)
[2017-05-18] MEDS: ENOXAPARIN SODIUM 40 MG/0.4 ML SYRINGE SQ SCH (10:20)
[2017-05-18] MEDS: PROPRANOLOL HCL 20 MG TAB PO SCH ×2 (10:20→18:17)
[2017-05-18] MEDS: FAMOTIDINE 20 MG TAB PO SCH ×2 (10:20→21:09)
[2017-05-18] MEDS: SODIUM CHLORIDE 1 GRAM TAB PO SCH (10:39)
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
--- NOTE | 2017-05-18 18:03 | HHI.HCPN ---
Reason for visit a. To assist with evaluation and management of symptoms including: dyspnea, pain. b. To assist medical decision maker(s) with: better understanding of current medical conditions; weighing benefits/burdens of medical treatment options; making medical treatment decisions. . (Tiffany Morris) Subjective/Interval History Patient seen and examined in ICU. No family at bedside. Patient remains in ICU on mech vent. Discussed with nurse who reports patient has been off sedation today and remains unresponsive. No evidence of neurologic recovery. Thick, bloody oral secretions noted. Tmax 100.8. WBC 15.3, hemoglobin 8.5, hematocrit 24.7, platelets 187. Albumin 1.8. Chest xray left basilar pleural parenchymal density, left chest tube in place. . Family/friend interactions Spoke with son Homero/ HCP via phone. Introduced palliative care service. Medical update provided. He verbalizes understanding of no evidence of neurologic recovery. He understands upcoming trach/PEG decision. He elects Intubation Only Code status. He does not want any additional surgeries at this time. He is planning to come to meet with palliative care 05/19/17 around 6pm, he will call palliative care to confirm after work. It seems in this conversation that patient would not continued trach/PEG if no neuro improvement. We agreed to further clarify treatment goals on 05/19/17 and will include patient sister, Faustina via conference call if possible. Spoke with Faustinasister via phone. She would like to be included in family meeting tomorrow. Medical update provided. She supports Alternate code status. . (Tiffany Morris) Advance Directives Living Will: Never completed Health Care Surrogate: Never completed Durable Power of Assistant Men'S Lacrosse Coach: Never completed (Tiffany Morris) Advance Directive Specifics Health Care Surrogate(s): Patient is incapacitated, unlikely to regain capacity due to severe traumatic brain injury. No known written advanced directives. Single. According to [place] statutes, health care proxy decision making falls to his only sonHomero. . Significant change in goals: ALTERNATE CODE: Intubation Only. Tentative family meeting 05/08/17 6pm. . (Tiffany Morris) Objective Vital Signs Date Time Temp Pulse Resp B/P (MAP) Pulse Ox O2 Delivery O2 Flow Rate FiO2 05/18/17 16:52 100 40 05/18/17 16:00 93 05/18/17 16:00 40 05/18/17 16:00 100.0 93 24 147/88 (107) 100 05/18/17 14:00 92 05/18/17 12:22 100 40 05/18/17 12:00 40 05/18/17 12:00 87 05/18/17 12:00 100.4 87 19 140/91 (107) 99 05/18/17 10:00 106 05/18/17 08:00 103 05/18/17 08:00 99.0 103 20 144/79 (100) 98 05/18/17 08:00 40 05/18/17 07:35 98 40 05/18/17 07:00 100 Mechanical Ventilator 40 05/18/17 06:00 93 05/18/17 04:02 100 40 05/18/17 04:00 99.1 93 23 142/81 (101) 100 05/18/17 04:00 93 05/18/17 04:00 40 05/18/17 02:00 94 05/18/17 01:02 100 40 05/18/17 00:00 100.8 101 21 142/81 (101) 100 05/18/17 00:00 101 05/18/17 00:00 40 05/17/17 22:00 102 05/17/17 20:00 102 05/17/17 20:00 99.7 102 23 142/78 (99) 97 05/17/17 20:00 40 05/17/17 19:27 98 40 05/17/17 19:00 100 Mechanical Ventilator 40 05/17/17 18:00 93 Intake & Output 05/18/17 05/18/17 07:00 19:00 Intake Total 4882 ml 200 ml Output Total 2050 ml 0 ml Balance 2832 ml 200 ml Intake IV Total 4132 ml 200 ml Tube Feeding 750 ml Output Urine Total 2050 ml Tube Feeding Residual Discard 0 ml Chest Tube Drainage Total 0 ml Drainage Total 0 ml # Bowel Movements 2 Physical Exam CONSTITUTIONAL/GENERAL: This is a young, critically ill patient, lightly sedated on mech vent. TUBES/LINES/DRAINS: ETT, OG, right subclavian central line, right FA splint, splint left arm, Mcdaniels, left chest tube, abdominal binder. SKIN: Multiple tattoos. Ecchymoses on upper extremities. Skin temperature appropriate. Not diaphoretic. Dressing left shoulder. HEAD: Atraumatic. Normocephalic. Sutures noted left forehead, dominik right scalp. Bone flap removed. EYES: left eye edema. Bruises bilateral eyes. ENT: Unable to assess hearing. Nose with piercing left nare. Throat difficult to visualize due to tubes. Thick yellowish secretions noted. CARDIOVASCULAR: Regular rate and rhythm without murmurs, gallops, or rubs. RESPIRATORY/CHEST: Course breath sounds. GASTROINTESTINAL: Abdomen soft, nondistended. Bowel sounds present. GENITOURINARY: Without palpable bladder distension. Mcdaniels catheter in place. MUSCULOSKELETAL: Extremities with edema, left > great. No mottling or clubbing. NEUROLOGICAL: Off sedation, unresponsive. Slight withdraw to pain. PSYCHIATRIC: Unresponsive. . (Tiffany Morris) Diagnostic Tests Laboratory Laboratory Tests Test 05/16/17 04:30 05/16/17 04:44 05/17/17 04:10 05/17/17 05:54 White Blood Count 13.2 TH/MM3 (4.0-11.0) 12.9 TH/MM3 (4.0-11.0) Red Blood Count 2.75 MIL/MM3 (4.50-5.90) 2.84 MIL/MM3 (4.50-5.90) Hemoglobin 8.6 GM/DL (13.0-17.0) 8.6 GM/DL (13.0-17.0) Hematocrit 25.4 % (39.0-51.0) 25.7 % (39.0-51.0) Mean Corpuscular Volume 92.4 FL (80.0-100.0) 90.5 FL (80.0-100.0) Mean Corpuscular Hemoglobin 31.1 PG (27.0-34.0) 30.4 PG (27.0-34.0) Mean Corpuscular Hemoglobin Concent 33.7 % (32.0-36.0) 33.5 % (32.0-36.0) Red Cell Distribution Width 14.8 % (11.6-17.2) 15.0 % (11.6-17.2) Platelet Count 124 TH/MM3 (150-450) 159 TH/MM3 (150-450) Mean Platelet Volume 8.6 FL (7.0-11.0) 8.2 FL (7.0-11.0) Neutrophils (%) (Auto) 78.2 % (16.0-70.0) 80.2 % (16.0-70.0) Lymphocytes (%) (Auto) 13.6 % (9.0-44.0) 12.1 % (9.0-44.0) Monocytes (%) (Auto) 7.8 % (0.0-8.0) 7.1 % (0.0-8.0) Eosinophils (%) (Auto) 0.3 % (0.0-4.0) 0.3 % (0.0-4.0) Basophils (%) (Auto) 0.1 % (0.0-2.0) 0.3 % (0.0-2.0) Neutrophils # (Auto) 10.3 TH/MM3 (1.8-7.7) 10.3 TH/MM3 (1.8-7.7) Lymphocytes # (Auto) 1.8 TH/MM3 (1.0-4.8) 1.6 TH/MM3 (1.0-4.8) Monocytes # (Auto) 1.0 TH/MM3 (0-0.9) 0.9 TH/MM3 (0-0.9) Eosinophils # (Auto) 0.0 TH/MM3 (0-0.4) 0.0 TH/MM3 (0-0.4) Basophils # (Auto) 0.0 TH/MM3 (0-0.2) 0.0 TH/MM3 (0-0.2) CBC Comment AUTO DIFF DIFF FINAL Differential Total Cells Counted 100 Neutrophils % (Manual) 83 % (16-70) Band Neutrophils % 1 % (0-6) Lymphocytes % 9 % (9-44) Monocytes % 6 % (0-8) Neutrophils # (Manual) 11.2 TH/MM3 (1.8-7.7) Myelocytes 1 % (0-0) Differential Comment FINAL DIFF MANUAL Platelet Estimate LOW (NORMAL) Platelet Morphology Comment NORMAL (NORMAL) Red Cell Morphology Comment NORMAL (NORMAL) Blood Urea Nitrogen 14 MG/DL (7-18) 14 MG/DL (7-18) Creatinine 0.46 MG/DL (0.60-1.30) 0.48 MG/DL (0.60-1.30) Random Glucose 93 MG/DL (74-106) 122 MG/DL (74-106) Total Protein 6.0 GM/DL (6.4-8.2) 6.3 GM/DL (6.4-8.2) Albumin 1.8 GM/DL (3.4-5.0) 1.8 GM/DL (3.4-5.0) Calcium Level 7.3 MG/DL (8.5-10.1) 7.5 MG/DL (8.5-10.1) Alkaline Phosphatase 66 U/L (45-117) 76 U/L (45-117) Aspartate Amino Transf (AST/SGOT) 68 U/L (15-37) 73 U/L (15-37) Alanine Aminotransferase (ALT/SGPT) 35 U/L (12-78) 48 U/L (12-78) Total Bilirubin 0.8 MG/DL (0.2-1.0) 0.8 MG/DL (0.2-1.0) Sodium Level 139 MEQ/L (136-145) 137 MEQ/L (136-145) Potassium Level 4.2 MEQ/L (3.5-5.1) 4.2 MEQ/L (3.5-5.1) Chloride Level 108 MEQ/L (98-107) 106 MEQ/L (98-107) Carbon Dioxide Level 25.8 MEQ/L (21.0-32.0) 24.8 MEQ/L (21.0-32.0) Anion Gap 5 MEQ/L (5-15) 6 MEQ/L (5-15) Estimat Glomerular Filtration Rate 202 ML/MIN (>89) 192 ML/MIN (>89) Protein Corrected Calcium 7.9 MG/DL (8.5-10.1) Blood Gas Puncture Site ART LINE ART LINE Blood Gas Patient Temperature 98.6 98.6 Blood Gas HCO3 24 mmol/L (22-26) 24 mmol/L (22-26) Blood Gas Base Excess 0.3 mmol/L (-2-2) -0.1 mmol/L (-2-2) Blood Gas Oxygen Saturation 96 % (90-100) 96 % (90-100) Arterial Blood pH 7.43 (7.380-7.420) 7.44 (7.380-7.420) Arterial Blood Partial Pressure CO2 37 mmHg (38-42) 35 mmHg (38-42) Arterial Blood Partial Pressure O2 119 mmHg (61-120) 125 mmHg (61-120) Arterial Blood Oxygen Content 14.3 Vol % (12.0-20.0) 14.9 Vol % (12.0-20.0) Arterial Blood Carboxyhemoglobin 2.1 % (0-4) 2.2 % (0-4) Arterial Blood Methemoglobin 0.8 % (0-2) 0.7 % (0-2) Blood Gas Hemoglobin 10.4 G/DL (12.0-16.0) 10.9 G/DL (12.0-16.0) Oxygen Delivery Device VENT VENT Blood Gas Ventilator Setting SEE COMMENTS SEE COMMENTS Blood Gas Inspired Oxygen 40 % 40 % Test 05/18/17 03:44 05/18/17 04:45 Blood Gas Puncture Site ART LINE Blood Gas Patient Temperature 98.6 Blood Gas HCO3 24 mmol/L (22-26) Blood Gas Base Excess 0.2 mmol/L (-2-2) Blood Gas Oxygen Saturation 95 % (90-100) Arterial Blood pH 7.47 (7.380-7.420) Arterial Blood Partial Pressure CO2 33 mmHg (38-42) Arterial Blood Partial Pressure O2 94 mmHg (61-120) Arterial Blood Oxygen Content 11.7 Vol % (12.0-20.0) Arterial Blood Carboxyhemoglobin 2.3 % (0-4) Arterial Blood Methemoglobin 0.6 % (0-2) Blood Gas Hemoglobin 8.7 G/DL (12.0-16.0) Oxygen Delivery Device VENTILATOR Blood Gas Ventilator Setting PRVC/AC Blood Gas Inspired Oxygen 40 % White Blood Count 15.3 TH/MM3 (4.0-11.0) Red Blood Count 2.74 MIL/MM3 (4.50-5.90) Hemoglobin 8.5 GM/DL (13.0-17.0) Hematocrit 24.7 % (39.0-51.0) Mean Corpuscular Volume 90.0 FL (80.0-100.0) Mean Corpuscular Hemoglobin 30.9 PG (27.0-34.0) Mean Corpuscular Hemoglobin Concent 34.3 % (32.0-36.0) Red Cell Distribution Width 14.6 % (11.6-17.2) Platelet Count 187 TH/MM3 (150-450) Mean Platelet Volume 7.9 FL (7.0-11.0) Neutrophils (%) (Auto) 80.8 % (16.0-70.0) Lymphocytes (%) (Auto) 11.3 % (9.0-44.0) Monocytes (%) (Auto) 7.4 % (0.0-8.0) Eosinophils (%) (Auto) 0.2 % (0.0-4.0) Basophils (%) (Auto) 0.3 % (0.0-2.0) Neutrophils # (Auto) 12.4 TH/MM3 (1.8-7.7) Lymphocytes # (Auto) 1.7 TH/MM3 (1.0-4.8) Monocytes # (Auto) 1.1 TH/MM3 (0-0.9) Eosinophils # (Auto) 0.0 TH/MM3 (0-0.4) Basophils # (Auto) 0.0 TH/MM3 (0-0.2) CBC Comment DIFF FINAL Differential Comment Blood Urea Nitrogen 15 MG/DL (7-18) Creatinine 0.45 MG/DL (0.60-1.30) Random Glucose 111 MG/DL (74-106) Total Protein 6.4 GM/DL (6.4-8.2) Albumin 1.8 GM/DL (3.4-5.0) Calcium Level 7.5 MG/DL (8.5-10.1) Alkaline Phosphatase 89 U/L (45-117) Aspartate Amino Transf (AST/SGOT) 69 U/L (15-37) Alanine Aminotransferase (ALT/SGPT) 58 U/L (12-78) Total Bilirubin 0.7 MG/DL (0.2-1.0) Sodium Level 132 MEQ/L (136-145) Potassium Level 4.1 MEQ/L (3.5-5.1) Chloride Level 102 MEQ/L (98-107) Carbon Dioxide Level 23.5 MEQ/L (21.0-32.0) Anion Gap 7 MEQ/L (5-15) Estimat Glomerular Filtration Rate 207 ML/MIN (>89) (Tiffany Morris) Result Diagram: 05/18/17 0445 05/18/17 0445 Microbiology Microbiology Date/Time Source Procedure Growth Status 05/16/17 08:15 Blood Peripheral Aerobic Blood Culture - Preliminary NO GROWTH IN 2 DAYS Resulted 05/16/17 08:15 Blood Peripheral Anaerobic Blood Culture - Preliminary NO GROWTH IN 2 DAYS Resulted 05/16/17 08:15 Blood Peripheral Aerobic Blood Culture - Preliminary NO GROWTH IN 2 DAYS Resulted 05/16/17 08:15 Blood Peripheral Anaerobic Blood Culture - Preliminary NO GROWTH IN 2 DAYS Resulted Imaging Last Impressions Chest X-Ray 05/18/17 0600 Signed Impressions: Service Date/Time: Thursday, May 18, 2017 06:24 - CONCLUSION: 1. Stable left basilar pleural-parenchymal density. 2. Left-sided chest tube without pneumothorax. Ar Bobby MD IVC Filter Placement X-Ray 05/17/17 0000 Signed Impressions: Service Date/Time: Wednesday, May 17, 2017 13:15 - CONCLUSION: Uncomplicated inferior vena cava filter placement as above. This is a retrievable device and can be retrieved up to one year from today's date. Derek Arreola Jr., MD Lower Extremity Ultrasound 05/15/17 0000 Signed Impressions: Service Date/Time: Monday, May 15, 2017 11:53 - CONCLUSION: 1. Thrombus involving the left femoral vein, popliteal vein, peroneal vein, and greater saphenous veins. 2. No DVT is seen on the right side. Taz Junior MD Humerus X-Ray 05/13/17 0000 Signed Impressions: Service Date/Time: April 10:29 - CONCLUSION: Limited images as detailed above. Derek Arreola Jr., MD Upper Extremity CT 05/11/17 0000 Signed Impressions: Service Date/Time: Thursday, May 11, 2017 18:33 - CONCLUSION: Complex and comminuted fracture left proximal humerus with shattered humeral head part of which appears dislocated and there are fractures of the acromion, scapula and distal clavicle in addition to multiple ribs. Jennifer Scales MD Head CT 05/10/17 0600 Signed Impressions: Service Date/Time: Wednesday, May 10, 2017 04:22 - CONCLUSION: 1. Postsurgical changes as above. decreasing mass effect and midline shift 2. Evolving contusions Dmitriy Zeng MD Thoracic Spine CT 05/09/17112 Signed Impressions: Service Date/Time: Tuesday, May 09, 2017 01:41 - CONCLUSION: No acute bony abnormality is seen. Taz Junior MD Lumbar Spine CT 05/09/17112 Signed Impressions: Service Date/Time: Tuesday, May 09, 2017 01:41 - CONCLUSION: 1. No acute bony injury is seen. 2. Mild disc bulge at the L5-S1 level. Taz Junior MD Chest CT 05/09/17112 Signed Impressions: Service Date/Time: Tuesday, May 09, 2017 01:41 - CONCLUSION: 1. Minimal left pneumothorax with a left chest tube in place. 2. There is increased density at the posterior lower lobes and patchy small areas of density in the upper lungs bilaterally being more prominent right. These likely represent a combination of contusions and atelectasis. 3. Bilateral rib fractures being more numerous on the left. 4. Left proximal humeral fracture. 5. Left scapular fracture. Taz Junior MD Cervical Spine CT 05/09/17112 Signed Impressions: Service Date/Time: Tuesday, May 09, 2017 01:37 - CONCLUSION: 1. No acute bony injury is seen. 2. Mild degenerative change as described above. Taz Junior MD Abdomen/Pelvis CT 05/09/17112 Signed Impressions: Service Date/Time: Tuesday, May 09, 2017 01:41 - CONCLUSION: 1. No acute intra-abdominal or pelvic abnormality. 2. Nonobstructing tiny renal stones seen bilaterally. 3. Prominent collaterals seen over the lower anterior abdominal wall in the pelvic region. 4. Rib fractures more fully described in the CT of the chest report. Taz Junior MD Radius/Ulna X-Ray 05/09/17 0000 Signed Impressions: Service Date/Time: Tuesday, May 09, 2017 01:05 - CONCLUSION: Fracturing of the distal radius and ulna as described above. Taz Junior MD Elbow X-Ray 05/09/17 0000 Signed Impressions: Service Date/Time: Tuesday, May 09, 2017 01:05 - CONCLUSION: Comminuted distal humeral fracture with displacement of a portion of the humerus presumably related to the lateral aspect of the distal humerus/capitellum and the radius. There is also fracturing of the proximal ulna. The fracture is open with air in the soft tissues and elbow joint. Taz Junior MD Procedures * - IVC filter placed. * 05/15/17 - bronchoscopy with BAL * 05/13/17 - open treatment of left glenohumeral joint dislocation, open reduction internal fixation left proximal humerus fracture * 05/11/17 - I & D open left distal humerus fracture, open left proximal ulna fracture, open left proximal radius fracture and complex wound closure. * 05/09/17 - right frontotemporoparietal craniotomy for subdural hemorrhage evacuation, right decompressive hemicraniectomy frontal craniotomy with elevation of depressed skull fractures, left forehead/frontal degloving scalp laceration repair with scalp flap transfer, left frontal [place] ICP monitor placement. * 05/09/17 - Left chest tube placement. * 05/09/17 - Intubated. . (Tiffany Morris) Assessment and Plan Disease Oriented Problem List: (1) Traumatic brain injury (2) Major neurocognitive disorder as late effect of traumatic brain injury without behavioral disturbance Symptom Scale: (1) Pain 0-10 Scale: Unable to quantify (2) Dyspnea 0-10 Scale: Unable to quantify Pertinent Non-Medical Issues Psychosocial: Single. Has 1 son, Homero. Has a sister, Faustina. Spiritual:Unknown. Legal: Patient is incapacitated, unlikely to regain capacity due to traumatic brain injury. No known written advanced directives. Single. According to [place] statdit[place], health care proxy decision making falls to his only son, Homero. Ethical issues impacting care: No known concerns at this time. . Important Contacts * Homero Yuen, son/ HCP: [phone] * Faustina Mcdonald, sister: [phone] Prognosis Mr. Yuen is an unfortunate 41 year old male who suffered a severe traumatic brain injury and traumatic injuries no evidence of neurologic recovery. Overall prognosis is poor for meaningful recovery. . Code Status: Full Code Plan * Decision Maker: Patient is incapacitated, unlikely to regain capacity due to traumatic brain injury. No known written advanced directives. Single. According to [place] statutes, health care proxy decision making falls to his only son, Homero. * INTUBATION ONLY * Family meeting tentatively planned 05/19/17 at 6pm with son (in person) and sister (via phone). * SYMPTOMS: Pain: due to trauma, TBI, bone injuries and mech vent/ tubes. off sedation. No obvious pain during my visit. Dyspnea: on mech vent. Encephalopathy : no evidence of neurologic recovery. No new medication recommendations at this time. * Palliative care will continue to follow throughout hospital course to assist with symptom management and clarification of goals as needed. . (Tiffany Morris) Attestation To help prompt me to consider important information that might be impacting today's encounter and assessment, information from prior notes written by myself or my colleagues may have been "brought forward" into today's note. My signature on this note, however, is an attestation that I personally performed the exam, history, and/or decision-making noted today, and, unless otherwise indicated, the interactions with patient, family, and staff as well as the review of records all occurred today. I also attest that the listed assessment and stated plan reflect my best clinical judgment today based on the combination of historical information, prior notes, and today's exam/ interactions. When time spent is documented, it refers only to time spent today by the signer, or if indicated, combined time spent today by collaborating physician/nurse practitioner. (Tiffany Morris) Collaborating MD Comments Chart reviewed. Case discussed with palliative care HOSPITALIST MEDICAL DIRECTOR. Above note reviewed and I concur. . (Sid Coleman MD) Tiffany Morris May 18, 2017 18:03 Sid Coleman MD May 20, 2017 17:24
[2017-05-18] MEDS: MAGNESIUM HYDROXIDE SUSP 30 ML CUP PO SCH (21:00)
[2017-05-19] VITALS (19 sets, daily range): BP systolic 119–144; BP diastolic 72–92; PULSE 76–94; RESP 17–20; TEMP 99.3–99.7; O2SAT 95–100
[2017-05-19] MEDS: METHOCARBAMOL 500 MG TAB PO SCH ×3 (01:22→16:59)
[2017-05-19] MEDS: PROPRANOLOL HCL 20 MG TAB PO SCH ×3 (01:23→16:59)
[2017-05-19] MEDS: BENEPROTEIN POWDER 1 PACK PEG SCH ×3 (02:00→16:59)
[2017-05-19 05:01] LABS: AUTOMATED NEUTROPHIL # 10.4 TH/MM3 (1.8-7.7); BASOPHIL % 0.2 % (0.0-2.0); EOSINOPHIL % 0.3 % (0.0-4.0); HEMATOCRIT 28.1 % (39.0-51.0); HEMO FLAGS DIFF FINAL; LYMPH % 14.9 % (9.0-44.0); LYMPHOCYTE # 2.1 TH/MM3 (1.0-4.8); MEAN CELL VOLUME 92.3 FL (80.0-100.0); MEAN CORPUSCULAR HGB CONC 34.6 % (32.0-36.0); MONO % 10.1 % (0.0-8.0); NEUT % 74.5 % (16.0-70.0); PLATELET COUNT 273 TH/MM3 (150-450); RED BLOOD COUNT 3.05 MIL/MM3 (4.50-5.90)
[2017-05-19] MEDS: ARTIFICIAL TEARS OPTH SOLN 15 ML BTL EACH EYE SCH ×3 (05:13→17:53)
[2017-05-19 05:22] LABS: BLOOD GAS BASE EXCESS 0.3 mmol/L (-2-2); BLOOD GAS CARBOXYHEMOGLOBIN 2.2 % (0-4); BLOOD GAS HCO3 23 mmol/L (22-26); BLOOD GAS METHEMOGLOBIN 0.2 % (0-2); BLOOD GAS O2 HGB SATURATION 95 % (90-100); BLOOD GAS OXYGEN CONTENT 12.9 Vol % (12.0-20.0); BLOOD GAS PCO2 32 mmHg (38-42); BLOOD GAS PO2 85 mmHg (61-120); BLOOD GAS TOTAL HGB 9.6 G/DL (12.0-16.0); CRITICAL VALUE NO; OXYGEN DEVICE VENTILATOR; TEMP CORR TO 98.6
[2017-05-19 05:23] LABS: FIO2 40 %
[2017-05-19 05:24] LABS: DRAW SITE RT FEMORAL; NUMBER OF ARTERIAL PUNCTURES 1; STAT NO; ULNAR PULSE PRESENT
[2017-05-19 05:26] LABS: ALT (GPT) 69 U/L (12-78); ANION GAP 6 MEQ/L (5-15); AST (GOT) 76 U/L (15-37); BICARBONATE 25.3 MEQ/L (21.0-32.0); BLOOD UREA NITROGEN 13 MG/DL (7-18); CHLORIDE 100 MEQ/L (98-107); GLOMERULAR FILTRATION RATE 197 ML/MIN (>89); POTASSIUM 4.1 MEQ/L (3.5-5.1); SODIUM (NA) 131 MEQ/L (136-145)
[2017-05-19 05:28] LABS: ALKALINE PHOSPHATASE 112 U/L (45-117); TOTAL BILIRUBIN ADULT 0.7 MG/DL (0.2-1.0)
--- NOTE | 2017-05-19 06:20 | RADRPT ---
EXAM DATE/TIME: 05/19/2017 06:05 [facility] COMPARISON: CHEST SINGLE AP, May 18, 2017, 6:24. INDICATIONS : Post chest tube removal. MEDICAL HISTORY : None. SURGICAL HISTORY : None. ENCOUNTER: Subsequent ACUITY: 1 week PAIN SCORE: Non-responsive. LOCATION: Left chest FINDINGS: A single view of the chest demonstrates left basilar pleural-parenchymal density. Removal of left-rey ed chest tube. No definite pneumothorax. Multiple rib fractures. The cardiomediastinal contours are u nremarkable. Heart mildly enlarged. Endotracheal tube, nasogastric tube and right subclavian central line are stable in position. CONCLUSION: Removal of left-sided chest tube without pneumothorax. Stable left basilar pleural-parenchymal densit y. Ar Bobby MD on May 19, 2017 at 6:17 Board Certified Radiologist. This report was verified electronically.
--- NOTE | 2017-05-19 08:18 | HHI.PR ---
Neuropsych Emotional Emotional: UnabletoAssess: Emotional, Anxious/Fearful, Depressed/Sad, Hostile/ Resentful, Irritable/Angry/Frustrate, Labile, Constricted/Blunted Behavior Behavior: Unable to Asses: Behavior, Coping/Acceptance, Cooperative w/ Treatment, Motivation, Frustration Tolerance/[place], Impulsive/Agitated, Suicidal/ Homicidal Risk Cognitive Cognitive: Unable to Asses: Cognitive, Attention/Concentration, Confused/ Orientation, Insight/Awareness, Judgement/Problem-Solving, Memory Psychosocial Psychosocial: Severe: Psychosocial, Family/Other Adjustment, Realistic Expectation, Unable to Asses: Self-Esteem/Confidence Progress Notes/Response to Tx Contents of Sessions: Adjustment, Level of Consciousness Time with Patient: 15 minutes Premorbid psychological status Premorbid Cognitive, Emotional and Behavioral Status: Unable to Assess. There was no family present. Behavioral Reactions of Patient and Family/Support System: Unable to Assess. The patients family is experiencing ongoing issues of adjustment given the nature of the injury, and this aspect of recovery will require ongoing monitoring. Emotional/Behavioral Status of Patient and Family/Support System: Unable to Assess. Pertinent issues, if appropriate to this patients clinical care, are described in detail above. Maximizing acute care outcome It is recommended that the patient be monitored for emergent behavioral impulsivity as the medical condition evolves. This patients neuropathological challenges may limit their rehabilitation potential going forward, and these challenges will require specialized therapeutic skills to maximize outcome. Anticipated Problems Ongoing areas of concern will include behavioral impulsivity, lack of insight and judgment, which is expected to improve with time and treatment. Presently , the patient remains intubated and sedated. Treatment Plan This clinician will continue to follow with you throughout the course of this patients acute care treatment, and I will be available to meet with the patient s family/support system to facilitate their understanding and the ongoing care of their family member. The goals of neuropsychological intervention shall be both educational and supportive to the family/support system as is deemed clinically appropriate. [place] Level: II:General response-total assist Impression 41 year old man s/p TBI 2T [facility] [place] on 05/09/2017. 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 This is day 10 post injury. There has been minimal change from a neurobehavioral perspective and he remains minimally responsive. RN report that with repositioning he becomes restless, and he was started on propranolol 20 q8H. The patient remains a Rancho II. I will continue to follow. Alfred Reed PhD May 19, 2017 8:18 am
[2017-05-19] MEDS: ENOXAPARIN SODIUM 40 MG/0.4 ML SYRINGE SQ SCH (08:25)
[2017-05-19] MEDS: DOCUSATE SODIUM 50 MG/SENNA 8.6 MG TAB PO SCH ×2 (08:25→20:24)
[2017-05-19] MEDS: SODIUM CHLORIDE 1 GRAM TAB PO SCH (08:25)
[2017-05-19] MEDS: FAMOTIDINE 20 MG TAB PO SCH ×2 (08:25→20:24)
[2017-05-19] MEDS: LEVOFLOXACIN 500 MG PREMIX INJ 100 ML IV SCH (08:26)
[2017-05-19] MEDS: levETIRAcetam INJ 500 MG in SODIUM CHLORIDE 0.9% INJ 100 ML IV SCH ×2 (08:26→20:24)
[2017-05-19] MEDS: CHLORHEXIDINE 0.12% (ORAL KIT) 15 ML CUP MT SCH ×2 (08:27→20:00)
[2017-05-19] MEDS: SODIUM CHLORIDE 0.9% FLUSH 10 ML FLUSH IV FLUSH SCH ×2 (08:27→20:24)
[2017-05-19] MEDS: LACTULOSE SYRUP 20 GM/30 ML CUP PO SCH (08:27)
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
[2017-05-19] MEDS: 3% SALINE INJ 500 ML IV SCH (13:08)
--- NOTE | 2017-05-19 15:05 | HHI.HCPN ---
Reason for visit a. To assist with evaluation and management of symptoms including: dyspnea, pain. b. To assist medical decision maker(s) with: better understanding of current medical conditions; weighing benefits/burdens of medical treatment options; making medical treatment decisions. . (Tiffany Morris) Subjective/Interval History Patient seen and examined in ICU. No family at bedside. Patient remains in ICU on mech vent. No evidence of neurologic recovery. Tmax 100.4. WBC 14, hemoglobin 9.7, platelets 273. Albumin 1.9. Chest xray left chest tube removed without pneumothorax, left stable basilar parenchymal density. . Family/friend interactions Tentative family family meeting 05/19/17 at 6pm, awaiting confirmation from son. 6:10pm: Spoke with Homero with via phone, he forgot about our meeting. He apologizes and offers to come 05/20/17 between 4:30- 5:30pm. He tells me NO additional surgeries including trach/PEG. He is going to coordinate with family in terms of transition to comfort and withdrawal of life support. I spoke with Faustina, sister to update on conversation with Homero. She will speak with Homero. Faustina will make arrangements to return to [place] when she talks to Homero about timing. Questions answered. . (Tiffany Morris) Advance Directives Living Will: Never completed Health Care Surrogate: Never completed Durable Power of Mastercam Programmer: Never completed (Tiffany Morris) Advance Directive Specifics Health Care Surrogate(s): Patient is incapacitated, unlikely to regain capacity due to severe traumatic brain injury. No known written advanced directives. Single. According to [place] statutes, health care proxy decision making falls to his only son, Homero. . Significant change in goals: Alternative Code: Intubation Only. Tentative family family meeting 05/19/17 at 6pm, awaiting confirmation from son. . (Tiffany Morris) Objective Vital Signs Date Time Temp Pulse Resp B/P (MAP) Pulse Ox O2 Delivery O2 Flow Rate FiO2 05/19/17 14:00 91 05/19/17 12:00 82 05/19/17 12:00 99.5 82 17 131/72 (91) 100 05/19/17 12:00 40 05/19/17 11:10 100 40 05/19/17 10:00 80 05/19/17 08:00 40 05/19/17 08:00 89 05/19/17 08:00 99.7 92 19 144/92 (109) 100 05/19/17 07:00 100 Mechanical Ventilator 40 05/19/17 06:00 94 05/19/17 05:00 40 05/19/17 05:00 99.3 82 18 119/73 (88) 100 05/19/17 04:15 100 40 05/19/17 04:00 82 05/19/17 02:00 78 05/19/17 01:45 100 40 05/19/17 00:00 40 05/19/17 00:00 88 05/19/17 00:00 99.7 88 20 135/73 (93) 100 05/18/17 22:00 85 05/18/17 21:26 100 40 05/18/17 20:00 40 05/18/17 20:00 99.9 82 21 138/83 (101) 100 05/18/17 20:00 82 05/18/17 19:00 100 Mechanical Ventilator 40 05/18/17 18:00 93 05/18/17 16:52 100 40 05/18/17 16:00 93 05/18/17 16:00 40 05/18/17 16:00 100.0 93 24 147/88 (107) 100 Intake & Output 05/19/17 05/19/17 07:00 19:00 Intake Total 981 ml 200 ml Output Total 1500 ml 0 ml Balance -519 ml 200 ml Intake IV Total 272 ml 200 ml Tube Feeding 709 ml Output Urine Total 1500 ml Tube Feeding Residual Discard 0 ml 0 ml # Bowel Movements 1 Physical Exam CONSTITUTIONAL/GENERAL: This is a young, critically ill patient, lightly sedated on mech vent. TUBES/LINES/DRAINS: ETT, OG, right subclavian central line, right FA splint, splint left arm, Mcdaniels, left chest tube, abdominal binder. SKIN: Multiple tattoos. Ecchymoses on upper extremities. Skin temperature appropriate. Not diaphoretic. Dressing left shoulder. HEAD: Atraumatic. Normocephalic. Sutures noted left forehead, dominik right scalp. Bone flap removed. EYES: left eye edema. Bruises bilateral eyes. ENT: Unable to assess hearing. Nose with piercing left nare. Throat difficult to visualize due to tubes. Thick yellowish secretions noted. CARDIOVASCULAR: Regular rate and rhythm without murmurs, gallops, or rubs. RESPIRATORY/CHEST: Course breath sounds. GASTROINTESTINAL: Abdomen soft, nondistended. Bowel sounds present. GENITOURINARY: Without palpable bladder distension. Mcdaniels catheter in place. MUSCULOSKELETAL: Extremities with edema, left > great. No mottling or clubbing. NEUROLOGICAL: Off sedation, unresponsive. PSYCHIATRIC: Unresponsive. . (Tiffany Morris) Diagnostic Tests Laboratory Laboratory Tests Test 05/17/17 04:10 05/17/17 05:54 05/18/17 03:44 05/18/17 04:45 White Blood Count 12.9 TH/MM3 (4.0-11.0) 15.3 TH/MM3 (4.0-11.0) Red Blood Count 2.84 MIL/MM3 (4.50-5.90) 2.74 MIL/MM3 (4.50-5.90) Hemoglobin 8.6 GM/DL (13.0-17.0) 8.5 GM/DL (13.0-17.0) Hematocrit 25.7 % (39.0-51.0) 24.7 % (39.0-51.0) Mean Corpuscular Volume 90.5 FL (80.0-100.0) 90.0 FL (80.0-100.0) Mean Corpuscular Hemoglobin 30.4 PG (27.0-34.0) 30.9 PG (27.0-34.0) Mean Corpuscular Hemoglobin Concent 33.5 % (32.0-36.0) 34.3 % (32.0-36.0) Red Cell Distribution Width 15.0 % (11.6-17.2) 14.6 % (11.6-17.2) Platelet Count 159 TH/MM3 (150-450) 187 TH/MM3 (150-450) Mean Platelet Volume 8.2 FL (7.0-11.0) 7.9 FL (7.0-11.0) Neutrophils (%) (Auto) 80.2 % (16.0-70.0) 80.8 % (16.0-70.0) Lymphocytes (%) (Auto) 12.1 % (9.0-44.0) 11.3 % (9.0-44.0) Monocytes (%) (Auto) 7.1 % (0.0-8.0) 7.4 % (0.0-8.0) Eosinophils (%) (Auto) 0.3 % (0.0-4.0) 0.2 % (0.0-4.0) Basophils (%) (Auto) 0.3 % (0.0-2.0) 0.3 % (0.0-2.0) Neutrophils # (Auto) 10.3 TH/MM3 (1.8-7.7) 12.4 TH/MM3 (1.8-7.7) Lymphocytes # (Auto) 1.6 TH/MM3 (1.0-4.8) 1.7 TH/MM3 (1.0-4.8) Monocytes # (Auto) 0.9 TH/MM3 (0-0.9) 1.1 TH/MM3 (0-0.9) Eosinophils # (Auto) 0.0 TH/MM3 (0-0.4) 0.0 TH/MM3 (0-0.4) Basophils # (Auto) 0.0 TH/MM3 (0-0.2) 0.0 TH/MM3 (0-0.2) CBC Comment DIFF FINAL DIFF FINAL Differential Comment Blood Urea Nitrogen 14 MG/DL (7-18) 15 MG/DL (7-18) Creatinine 0.48 MG/DL (0.60-1.30) 0.45 MG/DL (0.60-1.30) Random Glucose 122 MG/DL (74-106) 111 MG/DL (74-106) Total Protein 6.3 GM/DL (6.4-8.2) 6.4 GM/DL (6.4-8.2) Albumin 1.8 GM/DL (3.4-5.0) 1.8 GM/DL (3.4-5.0) Calcium Level 7.5 MG/DL (8.5-10.1) 7.5 MG/DL (8.5-10.1) Alkaline Phosphatase 76 U/L (45-117) 89 U/L (45-117) Aspartate Amino Transf (AST/SGOT) 73 U/L (15-37) 69 U/L (15-37) Alanine Aminotransferase (ALT/SGPT) 48 U/L (12-78) 58 U/L (12-78) Total Bilirubin 0.8 MG/DL (0.2-1.0) 0.7 MG/DL (0.2-1.0) Sodium Level 137 MEQ/L (136-145) 132 MEQ/L (136-145) Potassium Level 4.2 MEQ/L (3.5-5.1) 4.1 MEQ/L (3.5-5.1) Chloride Level 106 MEQ/L (98-107) 102 MEQ/L (98-107) Carbon Dioxide Level 24.8 MEQ/L (21.0-32.0) 23.5 MEQ/L (21.0-32.0) Anion Gap 6 MEQ/L (5-15) 7 MEQ/L (5-15) Estimat Glomerular Filtration Rate 192 ML/MIN (>89) 207 ML/MIN (>89) Blood Gas Puncture Site ART LINE ART LINE Blood Gas Patient Temperature 98.6 98.6 Blood Gas HCO3 24 mmol/L (22-26) 24 mmol/L (22-26) Blood Gas Base Excess -0.1 mmol/L (-2-2) 0.2 mmol/L (-2-2) Blood Gas Oxygen Saturation 96 % (90-100) 95 % (90-100) Arterial Blood pH 7.44 (7.380-7.420) 7.47 (7.380-7.420) Arterial Blood Partial Pressure CO2 35 mmHg (38-42) 33 mmHg (38-42) Arterial Blood Partial Pressure O2 125 mmHg (61-120) 94 mmHg (61-120) Arterial Blood Oxygen Content 14.9 Vol % (12.0-20.0) 11.7 Vol % (12.0-20.0) Arterial Blood Carboxyhemoglobin 2.2 % (0-4) 2.3 % (0-4) Arterial Blood Methemoglobin 0.7 % (0-2) 0.6 % (0-2) Blood Gas Hemoglobin 10.9 G/DL (12.0-16.0) 8.7 G/DL (12.0-16.0) Oxygen Delivery Device VENT VENTILATOR Blood Gas Ventilator Setting SEE COMMENTS PRVC/AC Blood Gas Inspired Oxygen 40 % 40 % Test 05/19/17 04:25 05/19/17 05:05 White Blood Count 14.0 TH/MM3 (4.0-11.0) Red Blood Count 3.05 MIL/MM3 (4.50-5.90) Hemoglobin 9.7 GM/DL (13.0-17.0) Hematocrit 28.1 % (39.0-51.0) Mean Corpuscular Volume 92.3 FL (80.0-100.0) Mean Corpuscular Hemoglobin 32.0 PG (27.0-34.0) Mean Corpuscular Hemoglobin Concent 34.6 % (32.0-36.0) Red Cell Distribution Width 15.0 % (11.6-17.2) Platelet Count 273 TH/MM3 (150-450) Mean Platelet Volume 8.3 FL (7.0-11.0) Neutrophils (%) (Auto) 74.5 % (16.0-70.0) Lymphocytes (%) (Auto) 14.9 % (9.0-44.0) Monocytes (%) (Auto) 10.1 % (0.0-8.0) Eosinophils (%) (Auto) 0.3 % (0.0-4.0) Basophils (%) (Auto) 0.2 % (0.0-2.0) Neutrophils # (Auto) 10.4 TH/MM3 (1.8-7.7) Lymphocytes # (Auto) 2.1 TH/MM3 (1.0-4.8) Monocytes # (Auto) 1.4 TH/MM3 (0-0.9) Eosinophils # (Auto) 0.0 TH/MM3 (0-0.4) Basophils # (Auto) 0.0 TH/MM3 (0-0.2) CBC Comment DIFF FINAL Differential Comment Blood Urea Nitrogen 13 MG/DL (7-18) Creatinine 0.47 MG/DL (0.60-1.30) Random Glucose 102 MG/DL (74-106) Total Protein 7.2 GM/DL (6.4-8.2) Albumin 1.9 GM/DL (3.4-5.0) Calcium Level 7.7 MG/DL (8.5-10.1) Alkaline Phosphatase 112 U/L (45-117) Aspartate Amino Transf (AST/SGOT) 76 U/L (15-37) Alanine Aminotransferase (ALT/SGPT) 69 U/L (12-78) Total Bilirubin 0.7 MG/DL (0.2-1.0) Sodium Level 131 MEQ/L (136-145) Potassium Level 4.1 MEQ/L (3.5-5.1) Chloride Level 100 MEQ/L (98-107) Carbon Dioxide Level 25.3 MEQ/L (21.0-32.0) Anion Gap 6 MEQ/L (5-15) Estimat Glomerular Filtration Rate 197 ML/MIN (>89) Blood Gas Puncture Site RT FEMORAL Blood Gas Patient Temperature 98.6 Blood Gas HCO3 23 mmol/L (22-26) Blood Gas Base Excess 0.3 mmol/L (-2-2) Blood Gas Oxygen Saturation 95 % (90-100) Arterial Blood pH 7.48 (7.380-7.420) Arterial Blood Partial Pressure CO2 32 mmHg (38-42) Arterial Blood Partial Pressure O2 85 mmHg (61-120) Arterial Blood Oxygen Content 12.9 Vol % (12.0-20.0) Arterial Blood Carboxyhemoglobin 2.2 % (0-4) Arterial Blood Methemoglobin 0.2 % (0-2) Blood Gas Hemoglobin 9.6 G/DL (12.0-16.0) Oxygen Delivery Device VENTILATOR Blood Gas Ventilator Setting SEE COMMENT Blood Gas Inspired Oxygen 40 % (Tiffany Morris) Result Diagram: 05/19/17 0425 05/19/17 0425 Microbiology Microbiology Date/Time Source Procedure Growth Status 05/16/17 08:15 Blood Peripheral Aerobic Blood Culture - Preliminary NO GROWTH IN 3 DAYS Resulted 05/16/17 08:15 Blood Peripheral Anaerobic Blood Culture - Preliminary NO GROWTH IN 3 DAYS Resulted 05/15/17 10:50 Sputum Endotracheal Gram Stain - Final Complete 05/15/17 10:50 Sputum Culture - Final Acinetobacter Baumannii/Haemol Complete Imaging Last Impressions Chest X-Ray 05/19/17 0600 Signed Impressions: Service Date/Time: Friday, May 19, 2017 06:05 - CONCLUSION: Removal of left-sided chest tube without pneumothorax. Stable left basilar pleural-parenchymal density. Ar Bobby MD IVC Filter Placement X-Ray 05/17/17 0000 Signed Impressions: Service Date/Time: Wednesday, May 17, 2017 13:15 - CONCLUSION: Uncomplicated inferior vena cava filter placement as above. This is a retrievable device and can be retrieved up to one year from today's date. Derek Arreola Jr., MD Lower Extremity Ultrasound 05/15/17 0000 Signed Impressions: Service Date/Time: Monday, May 15, 2017 11:53 - CONCLUSION: 1. Thrombus involving the left femoral vein, popliteal vein, peroneal vein, and greater saphenous veins. 2. No DVT is seen on the right side. Taz Junior MD Humerus X-Ray 05/13/17 Signed Impressions: Service Date/Time: April 10:29 - CONCLUSION: Limited images as detailed above. Derek Arreola Jr., MD Upper Extremity CT 05/11/17 0000 Signed Impressions: Service Date/Time: Thursday, May 11, 2017 18:33 - CONCLUSION: Complex and comminuted fracture left proximal humerus with shattered humeral head part of which appears dislocated and there are fractures of the acromion, scapula and distal clavicle in addition to multiple ribs. Jennifer Scales MD Head CT 05/10/17 0600 Signed Impressions: Service Date/Time: Wednesday, May 10, 2017 04:22 - CONCLUSION: 1. Postsurgical changes as above. decreasing mass effect and midline shift 2. Evolving contusions Dmitriy Zeng MD Thoracic Spine CT 05/09/17112 Signed Impressions: Service Date/Time: Tuesday, May 09, 2017 01:41 - CONCLUSION: No acute bony abnormality is seen. Taz Junior MD Lumbar Spine CT 05/09/17112 Signed Impressions: Service Date/Time: Tuesday, May 09, 2017 01:41 - CONCLUSION: 1. No acute bony injury is seen. 2. Mild disc bulge at the L5-S1 level. Taz Junior MD Chest CT 05/09/17112 Signed Impressions: Service Date/Time: Tuesday, May 09, 2017 01:41 - CONCLUSION: 1. Minimal left pneumothorax with a left chest tube in place. 2. There is increased density at the posterior lower lobes and patchy small areas of density in the upper lungs bilaterally being more prominent right. These likely represent a combination of contusions and atelectasis. 3. Bilateral rib fractures being more numerous on the left. 4. Left proximal humeral fracture. 5. Left scapular fracture. Taz Junior MD Cervical Spine CT 05/09/17112 Signed Impressions: Service Date/Time: Tuesday, May 09, 2017 01:37 - CONCLUSION: 1. No acute bony injury is seen. 2. Mild degenerative change as described above. Taz Junior MD Abdomen/Pelvis CT 05/09/17112 Signed Impressions: Service Date/Time: Tuesday, May 09, 2017 01:41 - CONCLUSION: 1. No acute intra-abdominal or pelvic abnormality. 2. Nonobstructing tiny renal stones seen bilaterally. 3. Prominent collaterals seen over the lower anterior abdominal wall in the pelvic region. 4. Rib fractures more fully described in the CT of the chest report. Taz Junior MD Radius/Ulna X-Ray 05/09/17 0000 Signed Impressions: Service Date/Time: Tuesday, May 09, 2017 01:05 - CONCLUSION: Fracturing of the distal radius and ulna as described above. Taz Junior MD Elbow X-Ray 05/09/17 0000 Signed Impressions: Service Date/Time: Tuesday, May 09, 2017 01:05 - CONCLUSION: Comminuted distal humeral fracture with displacement of a portion of the humerus presumably related to the lateral aspect of the distal humerus/capitellum and the radius. There is also fracturing of the proximal ulna. The fracture is open with air in the soft tissues and elbow joint. Taz Junior MD . Procedures * - IVC filter placed. * 05/15/17 - bronchoscopy with BAL * 05/13/17 - open treatment of left glenohumeral joint dislocation, open reduction internal fixation left proximal humerus fracture * 05/11/17 - I & D open left distal humerus fracture, open left proximal ulna fracture, open left proximal radius fracture and complex wound closure. * 05/09/17 - right frontotemporoparietal craniotomy for subdural hemorrhage evacuation, right decompressive hemicraniectomy frontal craniotomy with elevation of depressed skull fractures, left forehead/frontal degloving scalp laceration repair with scalp flap transfer, left frontal Enoc ICP monitor placement. * 05/09/17 - Left chest tube placement. * 05/09/17 - Intubated. . 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 Has 1 son, Homero. Has a sister, Faustina. Spiritual:Unknown. Legal: Patient is incapacitated, unlikely to regain capacity due to traumatic brain injury. No known written advanced directives. Single. According to [place] statutes, health care proxy decision making falls to his only son, Homero. Ethical issues impacting care: No known concerns at this time. . Important Contacts * Homero Yuen son/ HCP: [phone] * Faustina Mcdonald, sister: [phone] Prognosis Mr. Yuen is an unfortunate 41 year old male who suffered a severe traumatic brain injury and traumatic injuries no evidence of neurologic recovery. Overall prognosis is poor for meaningful recovery. . Code Status: Alternative Code (Intubation Only) Plan * Decision Maker: Patient is incapacitated, unlikely to regain capacity due to traumatic brain injury. No known written advanced directives. Single. According to [place] statutes, health care proxy decision making falls to his only son, Homero. * INTUBATION ONLY * 6:20pm: Spoke with Homero with via phone, he forgot about our meeting. He apologizes and offers to come 05/20/17 between 4:30- 5:30pm. He tells me NO additional surgeries including trach/PEG. He is going to coordinate with family in terms of transition to comfort and withdrawal of life support. I spoke with Faustinasister to update on conversation with Homero. She will speak with Homero. Faustina will make arrangements to return to [place] when she talks to Homero about timing. Questions answered. * SYMPTOMS: Pain: due to trauma, TBI, bone injuries and mech vent/ tubes. off sedation. No obvious pain during my visit. Dyspnea: on mech vent. Encephalopathy : no evidence of neurologic recovery. No new medication recommendations at this time. * Palliative care will continue to follow throughout hospital course to assist with symptom management and clarification of goals as needed. . (Tiffany Morris) Attestation To help prompt me to consider important information that might be impacting today's encounter and assessment, information from prior notes written by myself or my colleagues may have been "brought forward" into today's note. My signature on this note, however, is an attestation that I personally performed the exam, history, and/or decision-making noted today, and, unless otherwise indicated, the interactions with patient, family, and staff as well as the review of records all occurred today. I also attest that the listed assessment and stated plan reflect my best clinical judgment today based on the combination of historical information, prior notes, and today's exam/ interactions. When time spent is documented, it refers only to time spent today by the signer, or if indicated, combined time spent today by collaborating physician/nurse practitioner. (Tiffany Morris) Collaborating MD Comments Chart reviewed. Case discussed with palliative care PSYCH ASSISTANT. Above PSYCH ASSISTANT note reviewed and I concur. . (Sid Coleman MD) Tiffany Morris May 19, 2017 15:05 Sid Coleman MD May 20, 2017 17:37
[2017-05-19] MEDS: fentaNYL 2,500 MCG/NS 250 ML IV PRN (16:58)
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
[2017-05-19] MEDS: MAGNESIUM HYDROXIDE SUSP 30 ML CUP PO SCH (20:24)
[2017-05-20] VITALS (16 sets, daily range): BP systolic 127–160; BP diastolic 80–95; PULSE 84–120; RESP 18–29; TEMP 99.5–100.4; O2SAT 95–100
[2017-05-20] MEDS: BENEPROTEIN POWDER 1 PACK PEG SCH ×3 (02:00→17:28)
[2017-05-20] MEDS: METHOCARBAMOL 500 MG TAB PO SCH ×3 (02:03→17:28)
[2017-05-20] MEDS: PROPRANOLOL HCL 20 MG TAB PO SCH ×3 (02:03→17:28)
[2017-05-20 04:48] LABS: AUTOMATED NEUTROPHIL # 9.3 TH/MM3 (1.8-7.7); BASOPHIL % 0.3 % (0.0-2.0); EOSINOPHIL % 0.2 % (0.0-4.0); HEMATOCRIT 26.6 % (39.0-51.0); LYMPH % 14.2 % (9.0-44.0); LYMPHOCYTE # 1.8 TH/MM3 (1.0-4.8); MEAN CELL VOLUME 93.1 FL (80.0-100.0); MEAN CORPUSCULAR HEMOGLOBIN 32.1 PG (27.0-34.0); MEAN CORPUSCULAR HGB CONC 34.5 % (32.0-36.0); MONO % 10.2 % (0.0-8.0); NEUT % 75.1 % (16.0-70.0); PLATELET COUNT 281 TH/MM3 (150-450); RED BLOOD COUNT 2.86 MIL/MM3 (4.50-5.90); WHITE BLOOD COUNT 12.4 TH/MM3 (4.0-11.0)
[2017-05-20 04:51] LABS: HEMO FLAGS AUTO DIFF
[2017-05-20 05:12] LABS: ALT (GPT) 76 U/L (12-78); ANION GAP 6 MEQ/L (5-15); AST (GOT) 71 U/L (15-37); BICARBONATE 26.2 MEQ/L (21.0-32.0); BLOOD UREA NITROGEN 14 MG/DL (7-18); CHLORIDE 101 MEQ/L (98-107); GLOMERULAR FILTRATION RATE 218 ML/MIN (>89); POTASSIUM 3.8 MEQ/L (3.5-5.1); SODIUM (NA) 133 MEQ/L (136-145)
[2017-05-20 05:14] LABS: ALKALINE PHOSPHATASE 122 U/L (45-117); TOTAL BILIRUBIN ADULT 0.7 MG/DL (0.2-1.0)
[2017-05-20 05:21] LABS: BANDS 2 % (0-6); METAMYELOCYTES 4 % (0-1); NEUTROPHIL # MANUAL DIFF 11.2 TH/MM3 (1.8-7.7); POLYS (SEG NEUTROPHILS) 84 % (16-70); WBC DIFF SAMPLE 100
[2017-05-20 05:22] LABS: PLATELET ESTIMATE SMEAR NORMAL (NORMAL); PLATELET MORPHOLOGY NORMAL (NORMAL); SCAN/DIFF FINAL DIFF MANUAL
[2017-05-20] MEDS: ARTIFICIAL TEARS OPTH SOLN 15 ML BTL EACH EYE SCH ×5 (06:00→23:33)
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
[2017-05-20] MEDS: DOCUSATE SODIUM 50 MG/SENNA 8.6 MG TAB PO SCH ×2 (09:00→20:59)
[2017-05-20] MEDS: LACTULOSE SYRUP 20 GM/30 ML CUP PO SCH (09:00)
[2017-05-20] MEDS: SODIUM CHLORIDE 0.9% FLUSH 10 ML FLUSH IV FLUSH SCH ×2 (09:01→20:59)
[2017-05-20] MEDS: ENOXAPARIN SODIUM 40 MG/0.4 ML SYRINGE SQ SCH (09:01)
[2017-05-20] MEDS: LEVOFLOXACIN 500 MG PREMIX INJ 100 ML IV SCH (09:01)
[2017-05-20] MEDS: levETIRAcetam INJ 500 MG in SODIUM CHLORIDE 0.9% INJ 100 ML IV SCH ×2 (09:01→20:59)
[2017-05-20] MEDS: SODIUM CHLORIDE 1 GRAM TAB PO SCH (09:01)
[2017-05-20] MEDS: CHLORHEXIDINE 0.12% (ORAL KIT) 15 ML CUP MT SCH ×2 (09:02→20:00)
--- NOTE | 2017-05-20 09:05 | PD.ORT.PN ---
Subjective Subjective Remarks intubated and stable Objective Vitals Vital Signs Date Time Temp Pulse Resp B/P (MAP) Pulse Ox O2 Delivery O2 Flow Rate FiO2 05/20/17 08:31 100 40 05/20/17 07:00 100 Mechanical Ventilator 40 05/20/17 06:00 88 05/20/17 04:00 40 05/20/17 04:00 84 05/20/17 04:00 99.7 84 19 127/81 (96) 100 05/20/17 03:30 100 40 05/20/17 02:00 92 05/20/17 00:00 93 05/20/17 00:00 40 05/20/17 00:00 99.5 93 21 134/83 (100) 95 Arterial Line 05/19/17 23:55 95 40 05/19/17 22:00 86 05/19/17 20:51 99 40 05/19/17 20:00 99.5 87 18 133/79 (97) 100 Arterial Line 05/19/17 20:00 40 05/19/17 20:00 87 05/19/17 19:00 100 Mechanical Ventilator 40 05/19/17 18:00 76 05/19/17 17:13 100 40 05/19/17 16:00 40 05/19/17 16:00 90 05/19/17 16:00 99.3 90 18 138/84 (102) 100 05/19/17 14:00 91 05/19/17 12:00 82 05/19/17 12:00 99.5 82 17 131/72 (91) 100 05/19/17 12:00 40 05/19/17 11:10 100 40 05/19/17 10:00 80 I/O 05/19/17 05/19/17 05/19/17 05/20/17 05/20/17 05/20/17 07:00 15:00 23:00 07:00 15:00 23:00 Intake Total 881 ml 200 ml 767 ml 956 ml Output Total 1500 ml 0 ml 1000.0 ml 1350 ml Balance -619 ml 200 ml -233.0 ml -394 ml Intake IV Total 172 ml 200 ml 100 ml 379 ml Tube Feeding 709 ml 667 ml 577 ml Output Urine Total 1500 ml 1000 ml 1350 ml Tube Feeding Residual Discard 0 ml 0 ml 0 ml 0 ml # Bowel Movements 1 0 1 Result Diagram: 05/20/17 0427 05/20/177 Imaging Last [address] 05/10/17599 Signed Impressions: Service Date/Time: Wednesday, May 10, 2017 04:22 - CONCLUSION: 1. Postsurgical changes as above. decreasing mass effect and midline shift 2. Evolving contusions Dmitriy Zeng MD Chest X-Ray 05/10/17599 Signed Impressions: Service Date/Time: Wednesday, May 10, 2017 04:59 - CONCLUSION: 1. Left basilar atelectasis. There is no evidence of pneumothorax. Dmitriy Zeng MD Objective Remarks Intubated Right upper extremity: splint in place. right wrist. Left upper extremity: +long arm splint in full extension. clean and dry. good perfusion of fingers. Assessment & Plan Assessment and Plan 1- TBI 2- right distal radius fracture 3- left severely comminuted open elbow fracture, limb threatening s/p I&D - POD 6 3- Comminuted Left Proximal Humerus Fx s/p ORIF - POD 4 -will plan to proceed with surgery for ORIF of right wrist potentially next week -obtain consents -maintain long arm splint at all times on left -maintain splint on right wrist -will not proceed with surgery of left elbow until cleared by neuro to be placed in lateral position. patient will need to be lateral for approx 2-3 hours. -critical care management -spoke with Dr Olvera regarding patients prognosis. if family decides to withdraw care, will not proceed with any additional surgical intervention. He will confer with family and let us know David Buckner Jr. May 20, 2017 09:05
[2017-05-20] MEDS: FAMOTIDINE 20 MG TAB PO SCH ×2 (11:30→20:59)
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
[2017-05-20] MEDS: fentaNYL 2,500 MCG/NS 250 ML IV PRN (13:19)
[2017-05-20] MEDS: 3% SALINE INJ 500 ML IV SCH (13:19)
--- NOTE | 2017-05-20 15:18 | HHI.HCPN ---
Reason for visit a. To assist with evaluation and management of symptoms including: dyspnea, pain. b. To assist medical decision maker(s) with: better understanding of current medical conditions; weighing benefits/burdens of medical treatment options; making medical treatment decisions. . Subjective/Interval History Patient seen and examined in ICU. No family at bedside. Discussed with nurse, Genevieve. She reports patient was taken off Fentanyl drip earlier today, opened right eye and withdraws to pain otherwise not following any commands. Heart rate has been intermittently elevated. Diaphoretic. 05/15/17 - sputum positive Acinetobacter. ID has been consulted. Patient remains in ICU on mech vent. No evidence of neurologic recovery. Tmax 100.4. WBC 12.4, hemoglobin 9.2, platelets 281. Albumin 1.8. No new imaging. In review of notes Dr. Dillard indicates "at this point there is no reasonable chance of meaningful recovery in this individual and family is about to make further rendering on care." Neurosurgery notes report "poor prognosis." Dr. Olvera's "Overall impression: Patient remains critically ill with severe a TBI and markedly impaired neurological status. Prognosis appears poor from severe TBI." . Family/friend interactions Call from sister, Faustina to report nurse told her patient opened his right eye today. I advised I will examine patient and review prognosis with medical team before family meeting this evening with her and Homero. While patient opened his eyes, off sedation he is no showing any significant signs of neurologic improvement. He is not following commands. Withdraws to painful stimuli. Pupil on right questionably reactive, left eye difficult to visualize due to Advance Directives Living Will: Never completed Health Care Surrogate: Never completed Durable Power of Vp Construction: Never completed Advance Directive Specifics Health Care Surrogate(s): Patient is incapacitated, will not regain capacity due to severe traumatic brain injury. No known written advanced directives. Single. According to [place] statutes, health care proxy decision making falls to his only son, Homero. . Significant change in goals: Alternative Code: Intubation Only. Family meeting planned 05/20/17 4:30 - 5: 30pm. . Objective Vital Signs Date Time Temp Pulse Resp B/P (MAP) Pulse Ox O2 Delivery O2 Flow Rate FiO2 05/20/17 12:00 100.4 120 29 159/95 (116) 100 05/20/17 12:00 120 05/20/17 12:00 40 05/20/17 11:41 100 40 05/20/17 10:00 89 05/20/17 08:31 100 40 05/20/17 08:00 40 05/20/17 08:00 99.7 94 18 133/80 (97) 100 05/20/17 08:00 90 05/20/17 07:00 100 Mechanical Ventilator 40 05/20/17 06:00 88 05/20/17 04:00 40 05/20/17 04:00 84 05/20/17 04:00 99.7 84 19 127/81 (96) 100 05/20/17 03:30 100 40 05/20/17 02:00 92 05/20/17 00:00 93 05/20/17 00:00 40 05/20/17 00:00 99.5 93 21 134/83 (100) 95 Arterial Line 05/19/17 23:55 95 40 05/19/17 22:00 86 05/19/17 20:51 99 40 05/19/17 20:00 99.5 87 18 133/79 (97) 100 Arterial Line 05/19/17 20:00 40 05/19/17 20:00 87 05/19/17 19:00 100 Mechanical Ventilator 40 05/19/17 18:00 76 05/19/17 17:13 100 40 05/19/17 16:00 40 05/19/17 16:00 90 05/19/17 16:00 99.3 90 18 138/84 (102) 100 Intake & Output 05/20/17 05/20/17 07:00 19:00 Intake Total 1056 ml Output Total 1350 ml Balance -294 ml Intake IV Total 479 ml Tube Feeding 577 ml Output Urine Total 1350 ml Tube Feeding Residual Discard 0 ml # Bowel Movements 1 Physical Exam CONSTITUTIONAL/GENERAL: This is a young, critically ill patient, lightly sedated on mech vent. TUBES/LINES/DRAINS: ETT, OG, right subclavian central line, right FA splint, splint left arm, Mcdaniels, abdominal binder. SKIN: Multiple tattoos. Ecchymoses on upper extremities. Skin temperature appropriate. Diaphoretic. Dressing left shoulder. HEAD: Sutures noted left forehead, dominik right scalp. Bone flap removed. EYES: left eye scleral edema. Bruises bilateral eyes. ENT: Unable to assess hearing. Nose with piercing left nare. Throat difficult to visualize due to tubes. Thick yellowish secretions noted. CARDIOVASCULAR: Tachycardic. RESPIRATORY/CHEST: Course breath sounds. GASTROINTESTINAL: Abdomen soft, nondistended. Bowel sounds present. GENITOURINARY: Without palpable bladder distension. Mcdaniels catheter in place. MUSCULOSKELETAL: Extremities with edema, left > great. No mottling or clubbing. NEUROLOGICAL: withdraws to painful stimuli bilateral LEs. Not tracking or following commands. PSYCHIATRIC: unable to evaluate due to clinical status. Diagnostic Tests Laboratory Laboratory Tests Test 05/18/17 03:44 05/18/17 04:45 05/19/17 04:25 05/19/17 05:05 Blood Gas Puncture Site ART LINE RT FEMORAL Blood Gas Patient Temperature 98.6 98.6 Blood Gas HCO3 24 mmol/L (22-26) 23 mmol/L (22-26) Blood Gas Base Excess 0.2 mmol/L (-2-2) 0.3 mmol/L (-2-2) Blood Gas Oxygen Saturation 95 % (90-100) 95 % (90-100) Arterial Blood pH 7.47 (7.380-7.420) 7.48 (7.380-7.420) Arterial Blood Partial Pressure CO2 33 mmHg (38-42) 32 mmHg (38-42) Arterial Blood Partial Pressure O2 94 mmHg (61-120) 85 mmHg (61-120) Arterial Blood Oxygen Content 11.7 Vol % (12.0-20.0) 12.9 Vol % (12.0-20.0) Arterial Blood Carboxyhemoglobin 2.3 % (0-4) 2.2 % (0-4) Arterial Blood Methemoglobin 0.6 % (0-2) 0.2 % (0-2) Blood Gas Hemoglobin 8.7 G/DL (12.0-16.0) 9.6 G/DL (12.0-16.0) Oxygen Delivery Device VENTILATOR VENTILATOR Blood Gas Ventilator Setting PRVC/AC SEE COMMENT Blood Gas Inspired Oxygen 40 % 40 % White Blood Count 15.3 TH/MM3 (4.0-11.0) 14.0 TH/MM3 (4.0-11.0) Red Blood Count 2.74 MIL/MM3 (4.50-5.90) 3.05 MIL/MM3 (4.50-5.90) Hemoglobin 8.5 GM/DL (13.0-17.0) 9.7 GM/DL (13.0-17.0) Hematocrit 24.7 % (39.0-51.0) 28.1 % (39.0-51.0) Mean Corpuscular Volume 90.0 FL (80.0-100.0) 92.3 FL (80.0-100.0) Mean Corpuscular Hemoglobin 30.9 PG (27.0-34.0) 32.0 PG (27.0-34.0) Mean Corpuscular Hemoglobin Concent 34.3 % (32.0-36.0) 34.6 % (32.0-36.0) Red Cell Distribution Width 14.6 % (11.6-17.2) 15.0 % (11.6-17.2) Platelet Count 187 TH/MM3 (150-450) 273 TH/MM3 (150-450) Mean Platelet Volume 7.9 FL (7.0-11.0) 8.3 FL (7.0-11.0) Neutrophils (%) (Auto) 80.8 % (16.0-70.0) 74.5 % (16.0-70.0) Lymphocytes (%) (Auto) 11.3 % (9.0-44.0) 14.9 % (9.0-44.0) Monocytes (%) (Auto) 7.4 % (0.0-8.0) 10.1 % (0.0-8.0) Eosinophils (%) (Auto) 0.2 % (0.0-4.0) 0.3 % (0.0-4.0) Basophils (%) (Auto) 0.3 % (0.0-2.0) 0.2 % (0.0-2.0) Neutrophils # (Auto) 12.4 TH/MM3 (1.8-7.7) 10.4 TH/MM3 (1.8-7.7) Lymphocytes # (Auto) 1.7 TH/MM3 (1.0-4.8) 2.1 TH/MM3 (1.0-4.8) Monocytes # (Auto) 1.1 TH/MM3 (0-0.9) 1.4 TH/MM3 (0-0.9) Eosinophils # (Auto) 0.0 TH/MM3 (0-0.4) 0.0 TH/MM3 (0-0.4) Basophils # (Auto) 0.0 TH/MM3 (0-0.2) 0.0 TH/MM3 (0-0.2) CBC Comment DIFF FINAL DIFF FINAL Differential Comment Blood Urea Nitrogen 15 MG/DL (7-18) 13 MG/DL (7-18) Creatinine 0.45 MG/DL (0.60-1.30) 0.47 MG/DL (0.60-1.30) Random Glucose 111 MG/DL (74-106) 102 MG/DL (74-106) Total Protein 6.4 GM/DL (6.4-8.2) 7.2 GM/DL (6.4-8.2) Albumin 1.8 GM/DL (3.4-5.0) 1.9 GM/DL (3.4-5.0) Calcium Level 7.5 MG/DL (8.5-10.1) 7.7 MG/DL (8.5-10.1) Alkaline Phosphatase 89 U/L (45-117) 112 U/L (45-117) Aspartate Amino Transf (AST/SGOT) 69 U/L (15-37) 76 U/L (15-37) Alanine Aminotransferase (ALT/SGPT) 58 U/L (12-78) 69 U/L (12-78) Total Bilirubin 0.7 MG/DL (0.2-1.0) 0.7 MG/DL (0.2-1.0) Sodium Level 132 MEQ/L (136-145) 131 MEQ/L (136-145) Potassium Level 4.1 MEQ/L (3.5-5.1) 4.1 MEQ/L (3.5-5.1) Chloride Level 102 MEQ/L (98-107) 100 MEQ/L (98-107) Carbon Dioxide Level 23.5 MEQ/L (21.0-32.0) 25.3 MEQ/L (21.0-32.0) Anion Gap 7 MEQ/L (5-15) 6 MEQ/L (5-15) Estimat Glomerular Filtration Rate 207 ML/MIN (>89) 197 ML/MIN (>89) Test 05/20/17 04:27 05/20/17 09:40 White Blood Count 12.4 TH/MM3 (4.0-11.0) Red Blood Count 2.86 MIL/MM3 (4.50-5.90) Hemoglobin 9.2 GM/DL (13.0-17.0) Hematocrit 26.6 % (39.0-51.0) Mean Corpuscular Volume 93.1 FL (80.0-100.0) Mean Corpuscular Hemoglobin 32.1 PG (27.0-34.0) Mean Corpuscular Hemoglobin Concent 34.5 % (32.0-36.0) Red Cell Distribution Width 15.0 % (11.6-17.2) Platelet Count 281 TH/MM3 (150-450) Mean Platelet Volume 7.8 FL (7.0-11.0) Neutrophils (%) (Auto) 75.1 % (16.0-70.0) Lymphocytes (%) (Auto) 14.2 % (9.0-44.0) Monocytes (%) (Auto) 10.2 % (0.0-8.0) Eosinophils (%) (Auto) 0.2 % (0.0-4.0) Basophils (%) (Auto) 0.3 % (0.0-2.0) Neutrophils # (Auto) 9.3 TH/MM3 (1.8-7.7) Lymphocytes # (Auto) 1.8 TH/MM3 (1.0-4.8) Monocytes # (Auto) 1.3 TH/MM3 (0-0.9) Eosinophils # (Auto) 0.0 TH/MM3 (0-0.4) Basophils # (Auto) 0.0 TH/MM3 (0-0.2) CBC Comment AUTO DIFF Differential Total Cells Counted 100 Neutrophils % (Manual) 84 % (16-70) Band Neutrophils % 2 % (0-6) Lymphocytes % 8 % (9-44) Monocytes % 2 % (0-8) Neutrophils # (Manual) 11.2 TH/MM3 (1.8-7.7) Metamyelocytes 4 % (0-1) Differential Comment FINAL DIFF MANUAL Platelet Estimate NORMAL (NORMAL) Platelet Morphology Comment NORMAL (NORMAL) Blood Urea Nitrogen 14 MG/DL (7-18) Creatinine 0.43 MG/DL (0.60-1.30) Random Glucose 98 MG/DL (74-106) Total Protein 6.9 GM/DL (6.4-8.2) Albumin 1.8 GM/DL (3.4-5.0) Calcium Level 8.1 MG/DL (8.5-10.1) Alkaline Phosphatase 122 U/L (45-117) Aspartate Amino Transf (AST/SGOT) 71 U/L (15-37) Alanine Aminotransferase (ALT/SGPT) 76 U/L (12-78) Total Bilirubin 0.7 MG/DL (0.2-1.0) Sodium Level 133 MEQ/L (136-145) 132 MEQ/L (136-145) Potassium Level 3.8 MEQ/L (3.5-5.1) Chloride Level 101 MEQ/L (98-107) Carbon Dioxide Level 26.2 MEQ/L (21.0-32.0) Anion Gap 6 MEQ/L (5-15) Estimat Glomerular Filtration Rate 218 ML/MIN (>89) Serum Osmolality 280 MOSM/KG (275-295) Result Diagram: 05/20/17 0427 05/20/17 0940 Microbiology Microbiology Date/Time Source Procedure Growth Status 05/16/17 08:15 Blood Peripheral Aerobic Blood Culture - Preliminary NO GROWTH IN 4 DAYS Resulted 05/16/17 08:15 Blood Peripheral Anaerobic Blood Culture - Preliminary NO GROWTH IN 4 DAYS Resulted 05/15/17 10:50 Sputum Endotracheal Gram Stain - Final Complete 05/15/17 10:50 Sputum Culture - Final Acinetobacter Baumannii/Haemol Complete . Imaging Last Impressions Chest X-Ray 05/19/17 0600 Signed Impressions: Service Date/Time: Friday, May 19, 2017 06:05 - CONCLUSION: Removal of left-sided chest tube without pneumothorax. Stable left basilar pleural-parenchymal density. Ar Bobby MD IVC Filter Placement X-Ray 05/17/17 0000 Signed Impressions: Service Date/Time: Wednesday, May 17, 2017 13:15 - CONCLUSION: Uncomplicated inferior vena cava filter placement as above. This is a retrievable device and can be retrieved up to one year from today's date. Derek Arreola Jr., MD Lower Extremity Ultrasound 05/15/17 0000 Signed Impressions: Service Date/Time: Monday, May 15, 2017 11:53 - CONCLUSION: 1. Thrombus involving the left femoral vein, popliteal vein, peroneal vein, and greater saphenous veins. 2. No DVT is seen on the right side. Taz Junior MD Humerus X-Ray 05/13/17 0000 Signed Impressions: Service Date/Time: April 10:29 - CONCLUSION: Limited images as detailed above. Derek Arreola Jr., MD Upper Extremity CT 05/11/17 0000 Signed Impressions: Service Date/Time: Thursday, May 11, 2017 18:33 - CONCLUSION: Complex and comminuted fracture left proximal humerus with shattered humeral head part of which appears dislocated and there are fractures of the acromion, scapula and distal clavicle in addition to multiple ribs. Jennifer Scales MD Head CT 05/10/17 0600 Signed Impressions: Service Date/Time: Wednesday, May 10, 2017 04:22 - CONCLUSION: 1. Postsurgical changes as above. decreasing mass effect and midline shift 2. Evolving contusions Dmitriy Zeng MD Thoracic Spine CT 05/09/17112 Signed Impressions: Service Date/Time: Tuesday, May 09, 2017 01:41 - CONCLUSION: No acute bony abnormality is seen. Taz Junior MD Lumbar Spine CT 05/09/17112 Signed Impressions: Service Date/Time: Tuesday, May 09, 2017 01:41 - CONCLUSION: 1. No acute bony injury is seen. 2. Mild disc bulge at the L5-S1 level. Taz Junior MD Chest CT 05/09/17112 Signed Impressions: Service Date/Time: Tuesday, May 09, 2017 01:41 - CONCLUSION: 1. Minimal left pneumothorax with a left chest tube in place. 2. There is increased density at the posterior lower lobes and patchy small areas of density in the upper lungs bilaterally being more prominent right. These likely represent a combination of contusions and atelectasis. 3. Bilateral rib fractures being more numerous on the left. 4. Left proximal humeral fracture. 5. Left scapular fracture. Taz Junior MD Cervical Spine CT 05/09/17112 Signed Impressions: Service Date/Time: Tuesday, May 09, 2017 01:37 - CONCLUSION: 1. No acute bony injury is seen. 2. Mild degenerative change as described above. Taz Junior MD Abdomen/Pelvis CT 05/09/17 0113 Signed Impressions: Service Date/Time: Tuesday, May 09, 2017 01:41 - CONCLUSION: 1. No acute intra-abdominal or pelvic abnormality. 2. Nonobstructing tiny renal stones seen bilaterally. 3. Prominent collaterals seen over the lower anterior abdominal wall in the pelvic region. 4. Rib fractures more fully described in the CT of the chest report. Taz Junior MD Radius/Ulna X-Ray 05/09/17 0000 Signed Impressions: Service Date/Time: Tuesday, May 09, 2017 01:05 - CONCLUSION: Fracturing of the distal radius and ulna as described above. Taz Junior MD Elbow X-Ray 05/09/17 0000 Signed Impressions: Service Date/Time: Tuesday, May 09, 2017 01:05 - CONCLUSION: Comminuted distal humeral fracture with displacement of a portion of the humerus presumably related to the lateral aspect of the distal humerus/capitellum and the radius. There is also fracturing of the proximal ulna. The fracture is open with air in the soft tissues and elbow joint. Taz Junior MD . Procedures * - IVC filter placed. * 05/15/17 - bronchoscopy with BAL * 05/13/17 - open treatment of left glenohumeral joint dislocation, open reduction internal fixation left proximal humerus fracture * 05/11/17 - I & D open left distal humerus fracture, open left proximal ulna fracture, open left proximal radius fracture and complex wound closure. * 05/09/17 - right frontotemporoparietal craniotomy for subdural hemorrhage evacuation, right decompressive hemicraniectomy frontal craniotomy with elevation of depressed skull fractures, left forehead/frontal degloving scalp laceration repair with scalp flap transfer, left frontal [place] ICP monitor placement. * 05/09/17 - Left chest tube placement. * 05/09/17 - Intubated. . Assessment and Plan Disease Oriented Problem List: (1) Traumatic brain injury (2) Major neurocognitive disorder as late effect of traumatic brain injury without behavioral disturbance Symptom Scale: (1) Pain 0-10 Scale: Unable to quantify Comment: Nursing pain scales document '0." (2) Dyspnea 0-10 Scale: Unable to quantify Comment: on [facility] vent. Pertinent Non-Medical Issues Psychosocial: Single. Has 1 son, Homero. Has a sister, Faustina. Spiritual:Unknown. Legal: Patient is incapacitated, unlikely to regain capacity due to traumatic brain injury. No known written advanced directives. Single. According to [place] statutes, health care proxy decision making falls to his only son, Homero. Ethical issues impacting care: No known concerns at this time. . Important Contacts * Homero Yuen, son/ HCP: [phone] * Faustina Mcdonald, sister: [phone] Prognosis Mr. Yuen is an unfortunate 41 year old male who suffered a severe traumatic brain injury and traumatic injuries no evidence of neurologic recovery. Overall prognosis is poor for meaningful recovery. . Code Status: Alternative Code (Intubation Only) Plan * Decision Maker: Patient is incapacitated, will not regain capacity due to severe traumatic brain injury. No known written advanced directives. Single. According to [place] statutes, health care proxy decision making falls to his only son, Homero. * INTUBATION ONLY * Tentative family meeting with Homero agustin planned this evening between 4:30-5: 30pm. Will also call sister Faustina to provide medical update, review prognosis, provide anticipatory guidance regarding transition to comfort measures, coordinate timing of withdrawal life support once Faustina can arrive from out of state. Homero previously told me on 05/20/17 that he wants NO additional surgeries including trach/PEG. * I waited for Homero until 6:20pm, he did not show for meeting. Spoke with sister Faustina to provide update. She is making arrangments to come to [place]. She will call Homero and let me know plan of care on 05/21/17. * SYMPTOMS: Pain: due to trauma, TBI, bone injuries and mech vent/ tubes. off sedation. No obvious pain during my visit. Dyspnea: on mech vent. Encephalopathy : no evidence of neurologic recovery. No new medication recommendations at this time. * Palliative care will continue to follow throughout hospital course to assist with symptom management and clarification of goals as needed. . Attestation To help prompt me to consider important information that might be impacting today's encounter and assessment, information from prior notes written by myself or my colleagues may have been "brought forward" into today's note. My signature on this note, however, is an attestation that I personally performed the exam, history, and/or decision-making noted today, and, unless otherwise indicated, the interactions with patient, family, and staff as well as the review of records all occurred today. I also attest that the listed assessment and stated plan reflect my best clinical judgment today based on the combination of historical information, prior notes, and today's exam/ interactions. When time spent is documented, it refers only to time spent today by the signer, or if indicated, combined time spent today by collaborating physician/nurse practitioner. Tiffany Morris May 20, 2017 15:17
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
[2017-05-20] MEDS: MAGNESIUM HYDROXIDE SUSP 30 ML CUP PO SCH (20:59)
[2017-05-20] MEDS: AMPICILLIN-SULBACTAM INJ 3 GM in SODIUM CHLORIDE 0.9% INJ 100 ML IV SCH (23:33)
[2017-05-21] VITALS (21 sets, daily range): BP systolic 125–141; BP diastolic 81–88; PULSE 94–122; RESP 16–30; TEMP 100–100.6; O2SAT 95–100
[2017-05-21] MEDS: METHOCARBAMOL 500 MG TAB PO SCH ×4 (00:05→23:35)
[2017-05-21] MEDS: BENEPROTEIN POWDER 1 PACK PEG SCH ×3 (02:00→18:17)
[2017-05-21] MEDS: PROPRANOLOL HCL 20 MG TAB PO SCH ×3 (02:20→18:17)
[2017-05-21 04:06] LABS: AUTOMATED NEUTROPHIL # 11.6 TH/MM3 (1.8-7.7); BASOPHIL # 0.1 TH/MM3 (0-0.2); BASOPHIL % 0.3 % (0.0-2.0); EOSINOPHIL % 0.2 % (0.0-4.0); HEMATOCRIT 29.3 % (39.0-51.0); HEMO FLAGS DIFF FINAL; LYMPH % 12.8 % (9.0-44.0); LYMPHOCYTE # 1.9 TH/MM3 (1.0-4.8); MEAN CELL VOLUME 89.8 FL (80.0-100.0); MEAN CORPUSCULAR HEMOGLOBIN 30.6 PG (27.0-34.0); MEAN CORPUSCULAR HGB CONC 34.1 % (32.0-36.0); MONO % 10.1 % (0.0-8.0); NEUT % 76.6 % (16.0-70.0); PLATELET COUNT 351 TH/MM3 (150-450); RED BLOOD COUNT 3.26 MIL/MM3 (4.50-5.90); RED CELL DISTRIBUTION WIDTH 15.2 % (11.6-17.2); WHITE BLOOD COUNT 15.2 TH/MM3 (4.0-11.0)
[2017-05-21] MEDS: AMPICILLIN-SULBACTAM INJ 3 GM in SODIUM CHLORIDE 0.9% INJ 100 ML IV SCH ×4 (04:06→20:33)
[2017-05-21 04:30] LABS: ANION GAP 8 MEQ/L (5-15); AST (GOT) 74 U/L (15-37); BICARBONATE 22.9 MEQ/L (21.0-32.0); BLOOD UREA NITROGEN 13 MG/DL (7-18); CHLORIDE 102 MEQ/L (98-107); GLOMERULAR FILTRATION RATE 212 ML/MIN (>89); POTASSIUM 4.4 MEQ/L (3.5-5.1); SODIUM (NA) 133 MEQ/L (136-145)
[2017-05-21 04:32] LABS: ALKALINE PHOSPHATASE 148 U/L (45-117); ALT (GPT) 86 U/L (12-78); TOTAL BILIRUBIN ADULT 0.7 MG/DL (0.2-1.0)
--- NOTE | 2017-05-21 06:08 | RADRPT ---
EXAM DATE/TIME: 05/21/2017 05:46 [facility] COMPARISON: CHEST SINGLE AP, May 19, 2017, 6:05. INDICATIONS : Follow up trauma. MEDICAL HISTORY : None. SURGICAL HISTORY : None. ENCOUNTER: Subsequent ACUITY: 1 week PAIN SCORE: Non-responsive. LOCATION: Bilateral chest FINDINGS: Mid and lower lung consolidation with a moderate pleural effusion again seen on the left, slightly wo rse in the interim. Multiple left rib fractures are again noted. Don't see a pneumothorax. Right lung remains clear. CONCLUSION: Consolidation and moderate pleural effusion on the left are modestly worse in the interim. Comminuted left rib fractures are again seen. No pneumothorax. Taz Bucio MD on May 21, 2017 at 6:05 Board Certified Radiologist. This report was verified electronically.
--- NOTE | 2017-05-21 07:24 | PD.ORT.PN ---
Subjective Subjective Remarks s/p open left elbow fx with I&D s/p right distal radius fx s/p left proximal humerus fracture s/p ORIF - POD 8 intubated/sedated neuro status unchanged. family has decided on palliative care Objective Vitals Vital Signs Date Time Temp Pulse Resp B/P (MAP) Pulse Ox O2 Delivery O2 Flow Rate FiO2 05/21/17 06:00 104 05/21/17 04:31 99 40 05/21/17 04:00 40 05/21/17 04:00 94 05/21/17 04:00 100.6 94 21 132/82 (99) 100 05/21/17 02:00 102 05/21/17 00:05 100 40 05/21/17 00:00 100.0 96 21 141/88 (105) 100 05/21/17 00:00 40 05/21/17 00:00 96 05/20/17 22:00 89 05/20/17 20:57 100 40 05/20/17 20:00 40 05/20/17 20:00 88 05/20/17 20:00 99.5 88 21 138/89 (105) 100 05/20/17 18:00 93 05/20/17 16:31 98 40 05/20/17 16:00 107 05/20/17 16:00 40 05/20/17 16:00 100.2 107 23 160/93 (115) 99 05/20/17 12:00 100.4 120 29 159/95 (116) 100 05/20/17 12:00 120 05/20/17 12:00 40 05/20/17 11:41 100 40 05/20/17 10:00 89 05/20/17 08:31 100 40 05/20/17 08:00 40 05/20/17 08:00 99.7 94 18 133/80 (97) 100 05/20/17 08:00 90 I/O 05/20/17 05/20/17 05/20/17 05/21/17 05/21/17 05/21/17 07:00 15:00 23:00 07:00 15:00 23:00 Intake Total 956 ml 910 ml 823 ml Output Total 1350 ml 1500 ml 1550 ml Balance -394 ml -590 ml -727 ml Intake Oral 0 ml IV Total 379 ml 237 ml 200 ml Tube Feeding 577 ml 633 ml 623 ml Tube Irrigant 40 ml Output Urine Total 1350 ml 1500 ml 1550 ml Tube Feeding Residual Discard 0 ml # Bowel Movements 1 1 1 Result Diagram: 05/21/17 0350 05/21/17 0350 Imaging Last [address] 05/10/17599 Signed Impressions: Service Date/Time: Wednesday, May 10, 2017 04:22 - CONCLUSION: 1. Postsurgical changes as above. decreasing mass effect and midline shift 2. Evolving contusions Dmitriy Zeng MD Chest X-Ray 05/10/17599 Signed Impressions: Service Date/Time: Wednesday, May 10, 2017 04:59 - CONCLUSION: 1. Left basilar atelectasis. There is no evidence of pneumothorax. Dmitriy Zeng MD Objective Remarks Intubated Right upper extremity: splint in place. right wrist. Left upper extremity: +long arm splint in full extension. clean and dry. good perfusion of fingers. Assessment & Plan Assessment and Plan 1- TBI 2- right distal radius fracture 3- left severely comminuted open elbow fracture, limb threatening s/p I&D 3- Comminuted Left Proximal Humerus Fx s/p ORIF - POD 8 -will plan to hold any further ortho surgeries per family request -maintain splint left arm and right wrist -if family changes mind or patient makes recovery, would consider proceed with additional surgery to left elbow and right wrist. -otherwise, will plan for nonop treatment Tomas Jesus May 21, 2017 07:24
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
[2017-05-21] MEDS: LACTULOSE SYRUP 20 GM/30 ML CUP PO SCH (09:00)
[2017-05-21] MEDS: ARTIFICIAL TEARS OPTH SOLN 15 ML BTL EACH EYE SCH ×4 (09:26→23:33)
[2017-05-21] MEDS: CHLORHEXIDINE 0.12% (ORAL KIT) 15 ML CUP MT SCH ×2 (09:26→20:00)
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
[2017-05-21] MEDS: SODIUM CHLORIDE 0.9% FLUSH 10 ML FLUSH IV FLUSH SCH ×2 (09:35→20:32)
[2017-05-21] MEDS: FAMOTIDINE 20 MG TAB PO SCH ×2 (09:35→20:32)
[2017-05-21] MEDS: levETIRAcetam INJ 500 MG in SODIUM CHLORIDE 0.9% INJ 100 ML IV SCH ×2 (09:35→20:32)
[2017-05-21] MEDS: DOCUSATE SODIUM 50 MG/SENNA 8.6 MG TAB PO SCH ×2 (09:36→20:32)
[2017-05-21] MEDS: LEVOFLOXACIN 500 MG PREMIX INJ 100 ML IV SCH (09:37)
[2017-05-21] MEDS: ENOXAPARIN SODIUM 40 MG/0.4 ML SYRINGE SQ SCH (09:38)
[2017-05-21] MEDS: 3% SALINE INJ 500 ML IV SCH (11:43)
[2017-05-21] MEDS: oxyCODONE HCL ORAL CONC 5 MG/0.25 ML SYRINGE PO SCH ×3 (11:43→20:33)
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
[2017-05-21] MEDS ORDERED: LORazepam 2 MG/ML VIAL IV PUSH ONE (15:00)
[2017-05-21] MEDS ORDERED: MORPHINE SULFATE 8 MG/ML INJ IV PUSH ONE (15:00)
--- NOTE | 2017-05-21 15:44 | HHI.HCPN ---
Reason for visit a. To assist with evaluation and management of symptoms including: dyspnea, pain. b. To assist medical decision maker(s) with: better understanding of current medical conditions; weighing benefits/burdens of medical treatment options; making medical treatment decisions. . (Tiffany Morris) Subjective/Interval History Patient seen and examined in ICU. No family at bedside. Discussed with nurse, Dr. Olvera and Dr. Coleman. Patient appears comfortable on Fentanyl drip 50mcg. Withdraws slightly to pain LEs. Does not follow commands. Does not open eyes during my visit. Tmax 100.6. Tachycardic rate 110-120s. Patient remains on mech vent, FiO2 40%. No evidence of neurologic recovery. Labs: WBC 15.2, hemoglobin 10.0, hematocrit 29.3, platelets 351. Serum osmolality 277. Albumin 2.0. Chest xray consolidation and moderate pleural effusion on the left modestly worse, comminuted left rib fractures, no pneumothorax. In review of previous notes Dr. Dillard indicates "at this point there is no reasonable chance of meaningful recovery in this individual and family is about to make further rendering on care." Neurosurgery notes report "poor prognosis." Dr. Olvera's "Overall impression: Patient remains critically ill with severe a TBI and markedly impaired neurological status. Prognosis appears poor from severe TBI." . Family/friend interactions Spoke with sisterFaustina via phone. She spoke with Homero and reports she will be arriving to [place] on 05/22/17. She hopes family/ friends will be able to come to say their good-byes on 05/22/17. She and Homero plan to proceed with transition to comfort measures with compassionate withdrawal of life support on 05/23/17, Faustnia and Homero plan to be present. Anticpatory guidance provided. Questions answered. She is very appreciative of time spent making sure she has been kept informed. Homero left me a message to confirm above plan of care. I left him a message to return my call if he has additional questions. . (Tiffany Morris) Advance Directives Living Will: Never completed Health Care Surrogate: Never completed Durable Power of Fiber Locking Supervisor: Never completed (Tiffany Morris) Advance Directive Specifics Health Care Surrogate(s): Patient is incapacitated, will not regain capacity due to severe traumatic brain injury. No known written advanced directives. Single. According to [place] statutes, health care proxy decision making falls to his only son, Homero. . Significant change in goals: NO CODE. Spoke with sister, Faustina via phone. She spoke with Homero and reports she will be arriving to [place] on 05/22/17. She hopes family/ friends will be able to come to say their good-byes on 05/22/17. She and Homero plan to proceed with transition to comfort measures with compassionate withdrawal of life support on 05/23/17, Faustina and Homero plan to be present. (Tiffany Morris) Objective Vital Signs Date Time Temp Pulse Resp B/P (MAP) Pulse Ox O2 Delivery O2 Flow Rate FiO2 05/21/17 13:32 99 40 05/21/17 12:00 116 05/21/17 12:00 40 05/21/17 12:00 100.2 113 16 125/82 (96) 99 05/21/17 10:31 97 40 05/21/17 10:00 111 05/21/17 08:39 95 40 05/21/17 08:00 40 05/21/17 08:00 122 05/21/17 08:00 100.2 95 16 139/81 (100) 100 05/21/17 06:00 104 05/21/17 04:31 99 40 05/21/17 04:00 40 05/21/17 04:00 94 05/21/17 04:00 100.6 94 21 132/82 (99) 100 05/21/17 02:00 102 05/21/17 00:05 100 40 05/21/17 00:00 100.0 96 21 141/88 (105) 100 05/21/17 00:00 40 05/21/17 00:00 96 05/20/17 22:00 89 05/20/17 20:57 100 40 05/20/17 20:00 40 05/20/17 20:00 88 05/20/17 20:00 99.5 88 21 138/89 (105) 100 05/20/17 18:00 93 05/20/17 16:31 98 40 05/20/17 16:00 107 05/20/17 16:00 40 05/20/17 16:00 100.2 107 23 160/93 (115) 99 Intake & Output 05/21/17 05/21/17 07:00 19:00 Intake Total 1028 ml 1000 ml Output Total 1550 ml Balance -522 ml 1000 ml IV Total 405 ml 1000 ml Tube Feeding 623 ml Output Urine Total 1550 ml # Bowel Movements 1 Physical Exam CONSTITUTIONAL/GENERAL: This is a young, critically ill patient, lightly sedated on mech vent. TUBES/LINES/DRAINS: ETT, OG, right subclavian central line, right FA splint, splint left arm, Mcdaniels, abdominal binder. SKIN: Multiple tattoos. Ecchymoses on upper extremities. Skin temperature appropriate. Diaphoretic. Dressing left shoulder. HEAD: Sutures noted left forehead, dominik right scalp. Bone flap removed. EYES: left eye scleral edema. Bruises bilateral eyes. ENT: Unable to assess hearing. Nose with piercing left nare. Throat difficult to visualize due to tubes. Thick yellowish secretions noted. CARDIOVASCULAR: Tachycardic. RESPIRATORY/CHEST: Course breath sounds. GASTROINTESTINAL: Abdomen soft, nondistended. Bowel sounds present. GENITOURINARY: Without palpable bladder distension. Mcdaniels catheter in place. MUSCULOSKELETAL: Extremities with edema, left > great. No mottling or clubbing. NEUROLOGICAL: withdraws to painful stimuli bilateral LEs. Not tracking or following commands. PSYCHIATRIC: unable to evaluate due to clinical status. (Tiffany Morris) Diagnostic Tests Laboratory Laboratory Tests Test 05/19/17 04:25 05/19/17 05:05 05/20/17 04:27 05/20/17 09:40 White Blood Count 14.0 TH/MM3 (4.0-11.0) 12.4 TH/MM3 (4.0-11.0) Red Blood Count 3.05 MIL/MM3 (4.50-5.90) 2.86 MIL/MM3 (4.50-5.90) Hemoglobin 9.7 GM/DL (13.0-17.0) 9.2 GM/DL (13.0-17.0) Hematocrit 28.1 % (39.0-51.0) 26.6 % (39.0-51.0) Mean Corpuscular Volume 92.3 FL (80.0-100.0) 93.1 FL (80.0-100.0) Mean Corpuscular Hemoglobin 32.0 PG (27.0-34.0) 32.1 PG (27.0-34.0) Mean Corpuscular Hemoglobin Concent 34.6 % (32.0-36.0) 34.5 % (32.0-36.0) Red Cell Distribution Width 15.0 % (11.6-17.2) 15.0 % (11.6-17.2) Platelet Count 273 TH/MM3 (150-450) 281 TH/MM3 (150-450) Mean Platelet Volume 8.3 FL (7.0-11.0) 7.8 FL (7.0-11.0) Neutrophils (%) (Auto) 74.5 % (16.0-70.0) 75.1 % (16.0-70.0) Lymphocytes (%) (Auto) 14.9 % (9.0-44.0) 14.2 % (9.0-44.0) Monocytes (%) (Auto) 10.1 % (0.0-8.0) 10.2 % (0.0-8.0) Eosinophils (%) (Auto) 0.3 % (0.0-4.0) 0.2 % (0.0-4.0) Basophils (%) (Auto) 0.2 % (0.0-2.0) 0.3 % (0.0-2.0) Neutrophils # (Auto) 10.4 TH/MM3 (1.8-7.7) 9.3 TH/MM3 (1.8-7.7) Lymphocytes # (Auto) 2.1 TH/MM3 (1.0-4.8) 1.8 TH/MM3 (1.0-4.8) Monocytes # (Auto) 1.4 TH/MM3 (0-0.9) 1.3 TH/MM3 (0-0.9) Eosinophils # (Auto) 0.0 TH/MM3 (0-0.4) 0.0 TH/MM3 (0-0.4) Basophils # (Auto) 0.0 TH/MM3 (0-0.2) 0.0 TH/MM3 (0-0.2) CBC Comment DIFF FINAL AUTO DIFF Differential Comment FINAL DIFF MANUAL Blood Urea Nitrogen 13 MG/DL (7-18) 14 MG/DL (7-18) Creatinine 0.47 MG/DL (0.60-1.30) 0.43 MG/DL (0.60-1.30) Random Glucose 102 MG/DL (74-106) 98 MG/DL (74-106) Total Protein 7.2 GM/DL (6.4-8.2) 6.9 GM/DL (6.4-8.2) Albumin 1.9 GM/DL (3.4-5.0) 1.8 GM/DL (3.4-5.0) Calcium Level 7.7 MG/DL (8.5-10.1) 8.1 MG/DL (8.5-10.1) Alkaline Phosphatase 112 U/L (45-117) 122 U/L (45-117) Aspartate Amino Transf (AST/SGOT) 76 U/L (15-37) 71 U/L (15-37) Alanine Aminotransferase (ALT/SGPT) 69 U/L (12-78) 76 U/L (12-78) Total Bilirubin 0.7 MG/DL (0.2-1.0) 0.7 MG/DL (0.2-1.0) Sodium Level 131 MEQ/L (136-145) 133 MEQ/L (136-145) 132 MEQ/L (136-145) Potassium Level 4.1 MEQ/L (3.5-5.1) 3.8 MEQ/L (3.5-5.1) Chloride Level 100 MEQ/L (98-107) 101 MEQ/L (98-107) Carbon Dioxide Level 25.3 MEQ/L (21.0-32.0) 26.2 MEQ/L (21.0-32.0) Anion Gap 6 MEQ/L (5-15) 6 MEQ/L (5-15) Estimat Glomerular Filtration Rate 197 ML/MIN (>89) 218 ML/MIN (>89) Blood Gas Puncture Site RT FEMORAL Blood Gas Patient Temperature 98.6 Blood Gas HCO3 23 mmol/L (22-26) Blood Gas Base Excess 0.3 mmol/L (-2-2) Blood Gas Oxygen Saturation 95 % (90-100) Arterial Blood pH 7.48 (7.380-7.420) Arterial Blood Partial Pressure CO2 32 mmHg (38-42) Arterial Blood Partial Pressure O2 85 mmHg (61-120) Arterial Blood Oxygen Content 12.9 Vol % (12.0-20.0) Arterial Blood Carboxyhemoglobin 2.2 % (0-4) Arterial Blood Methemoglobin 0.2 % (0-2) Blood Gas Hemoglobin 9.6 G/DL (12.0-16.0) Oxygen Delivery Device VENTILATOR Blood Gas Ventilator Setting SEE COMMENT Blood Gas Inspired Oxygen 40 % Differential Total Cells Counted 100 Neutrophils % (Manual) 84 % (16-70) Band Neutrophils % 2 % (0-6) Lymphocytes % 8 % (9-44) Monocytes % 2 % (0-8) Neutrophils # (Manual) 11.2 TH/MM3 (1.8-7.7) Metamyelocytes 4 % (0-1) Platelet Estimate NORMAL (NORMAL) Platelet Morphology Comment NORMAL (NORMAL) Serum Osmolality 280 MOSM/KG (275-295) Test 05/20/17 15:30 05/20/17 22:10 05/21/17 03:50 05/21/17 09:45 Sodium Level 133 MEQ/L (136-145) 135 MEQ/L (136-145) 133 MEQ/L (136-145) 132 MEQ/L (136-145) Serum Osmolality 279 MOSM/KG (275-295) 280 MOSM/KG (275-295) 282 MOSM/KG (275-295) 277 MOSM/KG (275-295) White Blood Count 15.2 TH/MM3 (4.0-11.0) Red Blood Count 3.26 MIL/MM3 (4.50-5.90) Hemoglobin 10.0 GM/DL (13.0-17.0) Hematocrit 29.3 % (39.0-51.0) Mean Corpuscular Volume 89.8 FL (80.0-100.0) Mean Corpuscular Hemoglobin 30.6 PG (27.0-34.0) Mean Corpuscular Hemoglobin Concent 34.1 % (32.0-36.0) Red Cell Distribution Width 15.2 % (11.6-17.2) Platelet Count 351 TH/MM3 (150-450) Mean Platelet Volume 7.7 FL (7.0-11.0) Neutrophils (%) (Auto) 76.6 % (16.0-70.0) Lymphocytes (%) (Auto) 12.8 % (9.0-44.0) Monocytes (%) (Auto) 10.1 % (0.0-8.0) Eosinophils (%) (Auto) 0.2 % (0.0-4.0) Basophils (%) (Auto) 0.3 % (0.0-2.0) Neutrophils # (Auto) 11.6 TH/MM3 (1.8-7.7) Lymphocytes # (Auto) 1.9 TH/MM3 (1.0-4.8) Monocytes # (Auto) 1.5 TH/MM3 (0-0.9) Eosinophils # (Auto) 0.0 TH/MM3 (0-0.4) Basophils # (Auto) 0.1 TH/MM3 (0-0.2) CBC Comment DIFF FINAL Differential Comment Blood Urea Nitrogen 13 MG/DL (7-18) Creatinine 0.44 MG/DL (0.60-1.30) Random Glucose 96 MG/DL (74-106) Total Protein 7.4 GM/DL (6.4-8.2) Albumin 2.0 GM/DL (3.4-5.0) Calcium Level 8.1 MG/DL (8.5-10.1) Alkaline Phosphatase 148 U/L (45-117) Aspartate Amino Transf (AST/SGOT) 74 U/L (15-37) Alanine Aminotransferase (ALT/SGPT) 86 U/L (12-78) Total Bilirubin 0.7 MG/DL (0.2-1.0) Potassium Level 4.4 MEQ/L (3.5-5.1) Chloride Level 102 MEQ/L (98-107) Carbon Dioxide Level 22.9 MEQ/L (21.0-32.0) Anion Gap 8 MEQ/L (5-15) Estimat Glomerular Filtration Rate 212 ML/MIN (>89) (Tiffany Morris) Result Diagram: 05/21/17 0350 05/21/17 0945 Microbiology Microbiology Date/Time Source Procedure Growth Status 05/16/17 08:15 Blood Peripheral Aerobic Blood Culture - Final NO GROWTH IN 5 DAYS Complete 05/16/17 08:15 Blood Peripheral Anaerobic Blood Culture - Final NO GROWTH IN 5 DAYS Complete 05/15/17 10:50 Sputum Endotracheal Gram Stain - Final Complete 05/15/17 10:50 Sputum Culture - Final Acinetobacter Baumannii/Haemol Complete Imaging Last Impressions Chest X-Ray 05/21/17 0600 Signed Impressions: Service Date/Time: Sunday, May 21, 2017 05:46 - CONCLUSION: Consolidation and moderate pleural effusion on the left are modestly worse in the interim. Comminuted left rib fractures are again seen. No pneumothorax. Taz Bucio MD IVC Filter Placement X-Ray 05/17/17 0000 Signed Impressions: Service Date/Time: Wednesday, May 17, 2017 13:15 - CONCLUSION: Uncomplicated inferior vena cava filter placement as above. This is a retrievable device and can be retrieved up to one year from today's date. Derek Arreola Jr., MD Lower Extremity Ultrasound 05/15/17 0000 Signed Impressions: Service Date/Time: Monday, May 15, 2017 11:53 - CONCLUSION: 1. Thrombus involving the left femoral vein, popliteal vein, peroneal vein, and greater saphenous veins. 2. No DVT is seen on the right side. Taz Junior MD Humerus X-Ray 05/13/17 0000 Signed Impressions: Service Date/Time: April 10:29 - CONCLUSION: Limited images as detailed above. Derek Arreola Jr., MD Upper Extremity CT 05/11/17 0000 Signed Impressions: Service Date/Time: Thursday, May 11, 2017 18:33 - CONCLUSION: Complex and comminuted fracture left proximal humerus with shattered humeral head part of which appears dislocated and there are fractures of the acromion, scapula and distal clavicle in addition to multiple ribs. Jennifer Scales MD Head CT 05/10/17 0600 Signed Impressions: Service Date/Time: Wednesday, May 10, 2017 04:22 - CONCLUSION: 1. Postsurgical changes as above. decreasing mass effect and midline shift 2. Evolving contusions Dmitriy Zeng MD Thoracic Spine CT 05/09/17 011 Signed Impressions: Service Date/Time: Tuesday, May 09, 2017 01:41 - CONCLUSION: No acute bony abnormality is seen. Taz Junior MD Lumbar Spine CT 05/09/17112 Signed Impressions: Service Date/Time: Tuesday, May 09, 2017 01:41 - CONCLUSION: 1. No acute bony injury is seen. 2. Mild disc bulge at the L5-S1 level. Taz Junior MD Chest CT 05/09/17112 Signed Impressions: Service Date/Time: Tuesday, May 09, 2017 01:41 - CONCLUSION: 1. Minimal left pneumothorax with a left chest tube in place. 2. There is increased density at the posterior lower lobes and patchy small areas of density in the upper lungs bilaterally being more prominent right. These likely represent a combination of contusions and atelectasis. 3. Bilateral rib fractures being more numerous on the left. 4. Left proximal humeral fracture. 5. Left scapular fracture. Taz Junior MD Cervical Spine CT 05/09/17112 Signed Impressions: Service Date/Time: Tuesday, May 09, 2017 01:37 - CONCLUSION: 1. No acute bony injury is seen. 2. Mild degenerative change as described above. Taz Junior MD Abdomen/Pelvis CT 05/09/17112 Signed Impressions: Service Date/Time: Tuesday, May 09, 2017 01:41 - CONCLUSION: 1. No acute intra-abdominal or pelvic abnormality. 2. Nonobstructing tiny renal stones seen bilaterally. 3. Prominent collaterals seen over the lower anterior abdominal wall in the pelvic region. 4. Rib fractures more fully described in the CT of the chest report. Taz Junior MD Radius/Ulna X-Ray 05/09/17 0000 Signed Impressions: Service Date/Time: Tuesday, May 09, 2017 01:05 - CONCLUSION: Fracturing of the distal radius and ulna as described above. Taz Junior MD Elbow X-Ray 05/09/17 0000 Signed Impressions: Service Date/Time: Tuesday, May 09, 2017 01:05 - CONCLUSION: Comminuted distal humeral fracture with displacement of a portion of the humerus presumably related to the lateral aspect of the distal humerus/capitellum and the radius. There is also fracturing of the proximal ulna. The fracture is open with air in the soft tissues and elbow joint. Taz Junior MD Procedures * - IVC filter placed. * 05/15/17 - bronchoscopy with BAL * 05/13/17 - open treatment of left glenohumeral joint dislocation, open reduction internal fixation left proximal humerus fracture * 05/11/17 - I & D open left distal humerus fracture, open left proximal ulna fracture, open left proximal radius fracture and complex wound closure. * 05/09/17 - right frontotemporoparietal craniotomy for subdural hemorrhage evacuation, right decompressive hemicraniectomy frontal craniotomy with elevation of depressed skull fractures, left forehead/frontal degloving scalp laceration repair with scalp flap transfer, left frontal Enoc ICP monitor placement. * 05/09/17 - Left chest tube placement. * 05/09/17 - Intubated. . (Tiffany Morris) Assessment and Plan Disease Oriented Problem List: (1) Traumatic brain injury (2) Major neurocognitive disorder as late effect of traumatic brain injury without behavioral disturbance Symptom Scale: (1) Pain 0-10 Scale: Unable to quantify Comment: Nursing pain scales document '0. (2) Dyspnea 0-10 Scale: Unable to quantify Comment: on [facility] vent. Pertinent Non-Medical Issues Psychosocial: Single. Has 1 son, Homero. Has a sister, Faustina. Spiritual:Unknown. Legal: Patient is incapacitated, unlikely to regain capacity due to traumatic brain injury. No known written advanced directives. Single. According to [place] statutes, health care proxy decision making falls to his only son, Homero. Ethical issues impacting care: No known concerns at this time. . Important Contacts * Homero Yuen, son/ HCP: [phone] * Faustina Mcdonald, sister: [phone] Prognosis Mr. Yuen is an unfortunate 41 year old male who suffered a severe traumatic brain injury and traumatic injuries no evidence of neurologic recovery. Overall prognosis is poor for meaningful recovery. . Code Status: No Code Plan * Decision Maker: Patient is incapacitated, will not regain capacity due to severe traumatic brain injury. No known written advanced directives. Single. According to [place] statutes, health care proxy decision making falls to his only son, Homero. * NO CODE * Goals: Spoke with sister, Faustina via phone. She spoke with Homero and reports she will be arriving to [place] on 05/22/17. She hopes family/ friends will be able to come to say their good-byes on 05/22/17. She and Homero plan to proceed with transition to comfort measures with compassionate withdrawal of life support on 05/23/17, Faustina and Homero plan to be present. Homero left me a message to confirm above plan of care. I left him a message to return my call if he has additional questions. * Discussed with Dr. Olvera, he will be available to write orders when family is ready to proceed with withdrawal of life support on 05/22/17. * Exhibits B & C placed on chart for MD signatures. * SYMPTOMS: Pain: due to trauma, TBI, bone injuries and mech vent/ tubes. off sedation. No obvious pain during my visit. Dyspnea: on mech vent. Encephalopathy : no evidence of neurologic recovery. No new medication recommendations at this time. * Palliative care will continue to follow throughout hospital course to assist with symptom management and clarification of goals as needed. . (Tiffany Morris) Attestation To help prompt me to consider important information that might be impacting today's encounter and assessment, information from prior notes written by myself or my colleagues may have been "brought forward" into today's note. My signature on this note, however, is an attestation that I personally performed the exam, history, and/or decision-making noted today, and, unless otherwise indicated, the interactions with patient, family, and staff as well as the review of records all occurred today. I also attest that the listed assessment and stated plan reflect my best clinical judgment today based on the combination of historical information, prior notes, and today's exam/ interactions. When time spent is documented, it refers only to time spent today by the signer, or if indicated, combined time spent today by collaborating physician/nurse practitioner. (Tiffany Morris) Collaborating MD Comments Chart reviewed , patient examined personally by me, case discussed with palliative care UNIX ARCHITECT. Above note reviewed and I concur. Patient remains minimally responsive, mechanically ventilated, sedated in SICU. Febrile, tachycardic. Worsening CXR. Minimal withdrawal to noxious stimulus - - otherwise unresponsive. In my clinical opinion , patient has an end stage condition. He is incapacitated to make his own medical decisions with no reasonable probability of regaining such capacity. With neurosurgery and cooling tower technician agreeing that there is little change for any meaningful recovery, will support legal decision maker's plan to go forward with compassionate withdrawal of life support this weekend -- most likely . . (Sid Coleman MD) Tiffany Morris May 21, 2017 15:43 Sid Coleman MD May 21, 2017 16:10
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
[2017-05-21] MEDS: MAGNESIUM HYDROXIDE SUSP 30 ML CUP PO SCH (20:32)
[2017-05-21] MEDS: MORPHINE SULFATE 8 MG/ML INJ IV PUSH PRN (22:37)
[2017-05-22] VITALS (18 sets, daily range): BP systolic 127–140; BP diastolic 80–90; PULSE 89–109; RESP 18–24; TEMP 99.1–100.2; O2SAT 99–100
[2017-05-22] MEDS: ACETAMINOPHEN 650 MG/20.3 ML UDC PO PRN (01:21)
[2017-05-22] MEDS: BENEPROTEIN POWDER 1 PACK PEG SCH ×3 (01:22→17:16)
[2017-05-22] MEDS: 3% SALINE INJ 500 ML IV SCH ×2 (01:22→17:53)
[2017-05-22] MEDS: PROPRANOLOL HCL 20 MG TAB PO SCH ×3 (01:24→17:16)
[2017-05-22 03:20] LABS: AUTOMATED NEUTROPHIL # 9.3 TH/MM3 (1.8-7.7); BASOPHIL # 0.1 TH/MM3 (0-0.2); BASOPHIL % 0.8 % (0.0-2.0); EOSINOPHIL % 0.4 % (0.0-4.0); HEMATOCRIT 28.1 % (39.0-51.0); HEMO FLAGS DIFF FINAL; LYMPH % 17.2 % (9.0-44.0); LYMPHOCYTE # 2.2 TH/MM3 (1.0-4.8); MEAN CELL VOLUME 90.6 FL (80.0-100.0); MEAN CORPUSCULAR HEMOGLOBIN 30.6 PG (27.0-34.0); MEAN CORPUSCULAR HGB CONC 33.8 % (32.0-36.0); MONO % 10.2 % (0.0-8.0); NEUT % 71.4 % (16.0-70.0); PLATELET COUNT 326 TH/MM3 (150-450); RED CELL DISTRIBUTION WIDTH 15.4 % (11.6-17.2)
[2017-05-22 04:02] LABS: ALT (GPT) 79 U/L (12-78); ANION GAP 6 MEQ/L (5-15); AST (GOT) 64 U/L (15-37); BICARBONATE 24.8 MEQ/L (21.0-32.0); BLOOD UREA NITROGEN 14 MG/DL (7-18); CHLORIDE 104 MEQ/L (98-107); GLOMERULAR FILTRATION RATE 175 ML/MIN (>89); POTASSIUM 4.1 MEQ/L (3.5-5.1); SODIUM (NA) 135 MEQ/L (136-145)
[2017-05-22 04:03] LABS: ALKALINE PHOSPHATASE 150 U/L (45-117); TOTAL BILIRUBIN ADULT 0.6 MG/DL (0.2-1.0)
[2017-05-22] MEDS: AMPICILLIN-SULBACTAM INJ 3 GM in SODIUM CHLORIDE 0.9% INJ 100 ML IV SCH ×4 (04:30→21:24)
[2017-05-22] MEDS: oxyCODONE HCL ORAL CONC 5 MG/0.25 ML SYRINGE PO SCH ×4 (04:31→21:23)
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
[2017-05-22] MEDS: ARTIFICIAL TEARS OPTH SOLN 15 ML BTL EACH EYE SCH ×4 (06:00→23:42)
[2017-05-22] MEDS: CHLORHEXIDINE 0.12% (ORAL KIT) 15 ML CUP MT SCH ×2 (08:37→20:21)
[2017-05-22] MEDS: FAMOTIDINE 20 MG TAB PO SCH ×2 (08:37→20:21)
[2017-05-22] MEDS: levETIRAcetam INJ 500 MG in SODIUM CHLORIDE 0.9% INJ 100 ML IV SCH ×2 (08:37→20:21)
[2017-05-22] MEDS: LACTULOSE SYRUP 20 GM/30 ML CUP PO SCH (08:37)
[2017-05-22] MEDS: SODIUM CHLORIDE 0.9% FLUSH 10 ML FLUSH IV FLUSH SCH ×2 (08:37→20:24)
[2017-05-22] MEDS: METHOCARBAMOL 500 MG TAB PO SCH ×3 (08:38→23:42)
[2017-05-22] MEDS: DOCUSATE SODIUM 50 MG/SENNA 8.6 MG TAB PO SCH ×2 (08:38→20:21)
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
[2017-05-22] MEDS: LEVOFLOXACIN 500 MG PREMIX INJ 100 ML IV SCH (11:31)
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
[2017-05-22] MEDS: ENOXAPARIN SODIUM 40 MG/0.4 ML SYRINGE SQ SCH (11:34)
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
[2017-05-22] MEDS: MAGNESIUM HYDROXIDE SUSP 30 ML CUP PO SCH (20:21)
[2017-05-23] VITALS (17 sets, daily range): BP systolic 113–143; BP diastolic 61–89; PULSE 79–125; RESP 15–25; TEMP 98.1–100.2; O2SAT 96–100
[2017-05-23] MEDS: PROPRANOLOL HCL 20 MG TAB PO SCH ×3 (02:44→18:00)
[2017-05-23] MEDS: BENEPROTEIN POWDER 1 PACK PEG SCH ×3 (02:45→18:00)
[2017-05-23] MEDS: oxyCODONE HCL ORAL CONC 5 MG/0.25 ML SYRINGE PO SCH ×4 (04:54→21:24)
[2017-05-23] MEDS: AMPICILLIN-SULBACTAM INJ 3 GM in SODIUM CHLORIDE 0.9% INJ 100 ML IV SCH ×4 (04:54→21:24)
[2017-05-23] MEDS: ARTIFICIAL TEARS OPTH SOLN 15 ML BTL EACH EYE SCH ×3 (06:00→18:00)
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
[2017-05-23 06:50] LABS: AUTOMATED NEUTROPHIL # 6.7 TH/MM3 (1.8-7.7); BASOPHIL % 0.3 % (0.0-2.0); EOSINOPHIL % 0.4 % (0.0-4.0); HEMO FLAGS DIFF FINAL; LYMPHOCYTE # 1.7 TH/MM3 (1.0-4.8); MEAN CELL VOLUME 93.7 FL (80.0-100.0); MEAN CORPUSCULAR HEMOGLOBIN 32.9 PG (27.0-34.0); MEAN CORPUSCULAR HGB CONC 35.1 % (32.0-36.0); MONO % 11.3 % (0.0-8.0); PLATELET COUNT 302 TH/MM3 (150-450); RED BLOOD COUNT 2.89 MIL/MM3 (4.50-5.90); RED CELL DISTRIBUTION WIDTH 15.4 % (11.6-17.2); WHITE BLOOD COUNT 9.5 TH/MM3 (4.0-11.0)
[2017-05-23 07:08] LABS: ANION GAP 7 MEQ/L (5-15); BICARBONATE 25.6 MEQ/L (21.0-32.0); BLOOD UREA NITROGEN 14 MG/DL (7-18); CHLORIDE 100 MEQ/L (98-107); GLOMERULAR FILTRATION RATE 188 ML/MIN (>89); POTASSIUM 3.9 MEQ/L (3.5-5.1); SODIUM (NA) 133 MEQ/L (136-145)
[2017-05-23 07:10] LABS: ALT (GPT) 81 U/L (12-78); AST (GOT) 64 U/L (15-37)
[2017-05-23 07:12] LABS: ALKALINE PHOSPHATASE 146 U/L (45-117); TOTAL BILIRUBIN ADULT 0.6 MG/DL (0.2-1.0)
[2017-05-23] MEDS: CHLORHEXIDINE 0.12% (ORAL KIT) 15 ML CUP MT SCH ×2 (07:24→20:26)
[2017-05-23] MEDS: LACTULOSE SYRUP 20 GM/30 ML CUP PO SCH (08:37)
[2017-05-23] MEDS: METHOCARBAMOL 500 MG TAB PO SCH ×2 (08:37→17:00)
[2017-05-23] MEDS: FAMOTIDINE 20 MG TAB PO SCH ×2 (08:37→20:27)
[2017-05-23] MEDS: DOCUSATE SODIUM 50 MG/SENNA 8.6 MG TAB PO SCH ×2 (08:37→20:27)
[2017-05-23] MEDS: SODIUM CHLORIDE 0.9% FLUSH 10 ML FLUSH IV FLUSH SCH ×2 (08:39→20:27)
[2017-05-23] MEDS: levETIRAcetam INJ 500 MG in SODIUM CHLORIDE 0.9% INJ 100 ML IV SCH ×2 (08:50→20:26)
[2017-05-23] MEDS: LEVOFLOXACIN 500 MG PREMIX INJ 100 ML IV SCH (09:08)
[2017-05-23] MEDS: ENOXAPARIN SODIUM 40 MG/0.4 ML SYRINGE SQ SCH (09:08)
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
--- NOTE | 2017-05-23 11:36 | HHI.NSPN ---
History Chief Complaint: Unable to obtain due to patient's clinical condition. Interval History A little more eye-opening today. Remains intubated. No IV sedation. Exam Results Vital Signs Date Time Temp Pulse Resp B/P (MAP) Pulse Ox O2 Delivery O2 Flow Rate FiO2 05/23/17 10:56 99 40 05/23/17 10:00 108 05/23/17 08:00 99.7 25 143/89 (107) 05/20/17 07:00 Mechanical Ventilator Intake and Output 05/23/17 05/23/17 05/24/17 08:00 16:00 00:00 Intake Total 938 ml Output Total 2000 ml Balance -1062 ml Physical Examination GENERAL: Obtunded, intubated & mechanically ventilated. SKIN: Warm & dry, well-approximated right craniotomy surgical incision w/o any signs of drainage. HEENT: Normocephalic, well-approximated right craniotomy surgical incision, flap full but soft, right pupil 3 mm sluggish, unable to evaluate left due to tissue covering the eye, orally intubated, OGT. NECK: No JVD, trachea midline. CARDIOVASCULAR: Regular without murmur RESPIRATORY/CHEST significant pulmonary secretions. Mild upper airway congestion to auscultation GASTROINTESTINAL: Abdomen soft, positive bowel sounds, OGT w/enteral feeds. GENITOURINARY: Mcdaniels catheter to BSD. MUSCULOSKELETAL: RUE in short arm splint. LUE in long arm splint. NEUROLOGICAL: Mild left eye proptosis. Mild right eye opening when stimulated Right pupil 3 mm sluggish, unable to assess left. Positive cough reflex. Does not follow commands. Unable to assess sensation. All extremities w/slight movement to central noxious stimulation. Lab, Micro, Other Results Laboratory Tests Test 05/22/17 16:05 05/23/17 06:10 Sodium Level 135 MEQ/L 133 MEQ/L Serum Osmolality 281 MOSM/KG White Blood Count 9.5 TH/MM3 Red Blood Count 2.89 MIL/MM3 Hemoglobin 9.5 GM/DL Hematocrit 27.0 % Mean Corpuscular Volume 93.7 FL Mean Corpuscular Hemoglobin 32.9 PG Mean Corpuscular Hemoglobin Concent 35.1 % Red Cell Distribution Width 15.4 % Platelet Count 302 TH/MM3 Mean Platelet Volume 7.9 FL Neutrophils (%) (Auto) 70.0 % Lymphocytes (%) (Auto) 18.0 % Monocytes (%) (Auto) 11.3 % Eosinophils (%) (Auto) 0.4 % Basophils (%) (Auto) 0.3 % Neutrophils # (Auto) 6.7 TH/MM3 Lymphocytes # (Auto) 1.7 TH/MM3 Monocytes # (Auto) 1.1 TH/MM3 Eosinophils # (Auto) 0.0 TH/MM3 Basophils # (Auto) 0.0 TH/MM3 CBC Comment DIFF FINAL Differential Comment Blood Urea Nitrogen 14 MG/DL Creatinine 0.49 MG/DL Random Glucose 106 MG/DL Total Protein 7.2 GM/DL Albumin 1.9 GM/DL Calcium Level 8.2 MG/DL Alkaline Phosphatase 146 U/L Aspartate Amino Transf (AST/SGOT) 64 U/L Alanine Aminotransferase (ALT/SGPT) 81 U/L Total Bilirubin 0.6 MG/DL Potassium Level 3.9 MEQ/L Chloride Level 100 MEQ/L Carbon Dioxide Level 25.6 MEQ/L Anion Gap 7 MEQ/L Estimat Glomerular Filtration Rate 188 ML/MIN Medical Decision Making Impression and Plan Impression: 1. Neurologic exam relatively stable following craniotomy for severe traumatic brain injury, elevation left frontal fracture. He may be slightly more responsive on examination today, with mild spontaneous right eye opening. Area plan: The patient's findings were discussed at length with the patient's sister in the room today. She states that the patient had significant pre-existing chronic pain symptoms, depression. She does not feel that he would wish to be artificially supported in a compromised state without chance of good recovery. The patient's sinus to come to the hospital today to try to make determination regarding further care. Luca Herman MD May 23, 2017 11:36
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
[2017-05-23] MEDS: 3% SALINE INJ 500 ML IV SCH (14:35)
[2017-05-23] MEDS: MORPHINE SULFATE 8 MG/ML INJ IV PUSH PRN ×5 (16:30→21:39)
[2017-05-23] MEDS: HYOSCYAMINE SOLN 0.125 MG/ML 15 ML BTL PO PRN (17:33)
[2017-05-23] MEDS: MAGNESIUM HYDROXIDE SUSP 30 ML CUP PO SCH (20:27)
[2017-05-24] VITALS (7 sets, daily range): BP systolic 109–115; BP diastolic 68–73; PULSE 76–91; RESP 16–24; TEMP 97.7–97.9; O2SAT 92–95
[2017-05-24] MEDS: ARTIFICIAL TEARS OPTH SOLN 15 ML BTL EACH EYE SCH ×3 (00:39→12:24)
[2017-05-24] MEDS: METHOCARBAMOL 500 MG TAB PO SCH ×3 (00:40→08:17)
[2017-05-24] MEDS: BENEPROTEIN POWDER 1 PACK PEG SCH ×2 (01:36→10:00)
[2017-05-24] MEDS: PROPRANOLOL HCL 20 MG TAB PO SCH ×2 (01:36→10:00)
[2017-05-24] MEDS: oxyCODONE HCL ORAL CONC 5 MG/0.25 ML SYRINGE PO SCH ×2 (03:35→10:00)
[2017-05-24] MEDS: AMPICILLIN-SULBACTAM INJ 3 GM in SODIUM CHLORIDE 0.9% INJ 100 ML IV SCH ×2 (03:35→10:00)
[2017-05-24] MEDS: MORPHINE SULFATE 8 MG/ML INJ IV PUSH PRN ×3 (03:39→10:01)
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
[2017-05-24] MEDS: CHLORHEXIDINE 0.12% (ORAL KIT) 15 ML CUP MT SCH (08:13)
[2017-05-24] MEDS: levETIRAcetam INJ 500 MG in SODIUM CHLORIDE 0.9% INJ 100 ML IV SCH (08:14)
[2017-05-24] MEDS: SODIUM CHLORIDE 0.9% FLUSH 10 ML FLUSH IV FLUSH SCH (08:14)
[2017-05-24] MEDS: FAMOTIDINE 20 MG TAB PO SCH ×2 (08:14→08:17)
[2017-05-24] MEDS: DOCUSATE SODIUM 50 MG/SENNA 8.6 MG TAB PO SCH ×2 (08:14→08:17)
[2017-05-24] MEDS: LACTULOSE SYRUP 20 GM/30 ML CUP PO SCH ×2 (08:14→08:17)
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
[2017-05-24] MEDS: ENOXAPARIN SODIUM 40 MG/0.4 ML SYRINGE SQ SCH (10:00)
[2017-05-24] MEDS: LEVOFLOXACIN 500 MG PREMIX INJ 100 ML IV SCH (10:00)
[2017-05-24] MEDS: HYOSCYAMINE SOLN 0.125 MG/ML 15 ML BTL PO PRN (10:24)
[2017-05-24] MEDS ORDERED: HYOSCYAMINE 0.5 MG/ML AMP IV PUSH PRN (11:00)
--- NOTE | 2017-05-24 11:49 | HHI.HCPN ---
Reason for visit a. To assist with evaluation and management of symptoms including: dyspnea, pain. b. To assist medical decision maker(s) with: better understanding of current medical conditions; weighing benefits/burdens of medical treatment options; making medical treatment decisions. . Subjective/Interval History Patient seen and examined in ICU. Sister Faustina at bedside. Zarina Arreola LCSW present. Discussed with nurseEric. Spoke with sonHomero via speaker phone with Zarina Weems and nurse present. He indicates he would prefer that sister Faustina make all of the arrangements for hospice transfer and consents as he will be unavailable today. Faustina indicates Homero is struggling with losing his dad. He prefers [facility] in [place]. Patient is moaning with labored respirations. Nurse medicated during my visit, respirations less labored. Nurse reports medication only lasts about 40 minutes. Vital signs stable, except tachypnea. Does not open eyes or follow commands. PPS 10, prognosis hours to days. . Family/friend interactions See interval note. . Advance Directives Living Will: Never completed Health Care Surrogate: Never completed Durable Power of Natural Resource Manager: Never completed Advance Directive Specifics Health Care Surrogate(s): Patient is incapacitated, will not regain capacity due to severe traumatic brain injury. No known written advanced directives. Single. According to [place] statutes, health care proxy decision making falls to his only sonHomero. . Significant change in goals: NO CODE. Comfort measures only. Hospice consulted. Plan for transfer to care center when arrangements made. . Objective Vital Signs Date Time Temp Pulse Resp B/P (MAP) Pulse Ox O2 Delivery O2 Flow Rate FiO2 05/24/17 10:00 81 05/24/17 08:00 97.7 81 24 115/73 (87) 95 05/24/17 08:00 81 05/24/17 07:00 95 Room Air 05/24/17 06:48 16 05/24/17 06:00 80 05/24/17 04:00 97.7 80 16 115/68 (84) 92 05/24/17 04:00 80 05/24/17 02:36 19 05/24/17 02:00 85 05/24/17 00:00 76 05/24/17 00:00 97.9 76 16 109/69 (82) 92 10/29/17 22:00 79 05/23/17 20:00 92 05/23/17 20:00 98.1 92 20 113/69 (84) 96 05/23/17 19:00 95 Room Air 05/23/17 18:00 96 05/23/17 17:22 98 Room Air 21 05/23/17 17:00 91 Room Air 05/23/17 16:00 99.5 109 17 126/78 (94) 100 05/23/17 16:00 98 05/23/17 16:00 40 05/23/17 14:00 105 05/23/17 12:00 100.2 101 15 119/78 (92) 99 05/23/17 12:00 101 05/23/17 12:00 40 Intake & Output 05/24/17 05/24/17 07:00 19:00 Intake Total 100 ml Output Total 1135 ml Balance -1135 ml 100 ml IV Total 100 ml Output Urine Total 1135 ml # Bowel Movements 0 Physical Exam CONSTITUTIONAL/GENERAL: This is a young, critically ill patient, with labored respirations. TUBES/LINES/DRAINS: right subclavian central line, right FA splint, splint left arm, Mcdaniels. SKIN: Multiple tattoos. Ecchymoses on upper extremities. Skin temperature appropriate. HEAD: Sutures noted left forehead, dominik right scalp. Right bone flap removed. EYES: Left eye scleral edema. Bruises bilateral eyes. CARDIOVASCULAR: RRR. RESPIRATORY/CHEST: Course breath sounds bilaterally. GASTROINTESTINAL: Abdomen soft, nondistended. Hypoactive BS. GENITOURINARY: Without palpable bladder distension. Mcdaniels catheter in place. MUSCULOSKELETAL: Extremities with edema, left > great. No mottling or clubbing. NEUROLOGICAL: Moaning. Does not open eyes or follow commands. . Diagnostic Tests Laboratory Laboratory Tests Test 05/21/17 17:00 05/21/17 21:40 05/22/17 03:10 05/22/17 16:05 Sodium Level 133 MEQ/L (136-145) 133 MEQ/L (136-145) 135 MEQ/L (136-145) 135 MEQ/L (136-145) Serum Osmolality 280 MOSM/KG (275-295) 283 MOSM/KG (275-295) 287 MOSM/KG (275-295) 281 MOSM/KG (275-295) White Blood Count 13.0 TH/MM3 (4.0-11.0) Red Blood Count 3.10 MIL/MM3 (4.50-5.90) Hemoglobin 9.5 GM/DL (13.0-17.0) Hematocrit 28.1 % (39.0-51.0) Mean Corpuscular Volume 90.6 FL (80.0-100.0) Mean Corpuscular Hemoglobin 30.6 PG (27.0-34.0) Mean Corpuscular Hemoglobin Concent 33.8 % (32.0-36.0) Red Cell Distribution Width 15.4 % (11.6-17.2) Platelet Count 326 TH/MM3 (150-450) Mean Platelet Volume 7.7 FL (7.0-11.0) Neutrophils (%) (Auto) 71.4 % (16.0-70.0) Lymphocytes (%) (Auto) 17.2 % (9.0-44.0) Monocytes (%) (Auto) 10.2 % (0.0-8.0) Eosinophils (%) (Auto) 0.4 % (0.0-4.0) Basophils (%) (Auto) 0.8 % (0.0-2.0) Neutrophils # (Auto) 9.3 TH/MM3 (1.8-7.7) Lymphocytes # (Auto) 2.2 TH/MM3 (1.0-4.8) Monocytes # (Auto) 1.3 TH/MM3 (0-0.9) Eosinophils # (Auto) 0.0 TH/MM3 (0-0.4) Basophils # (Auto) 0.1 TH/MM3 (0-0.2) CBC Comment DIFF FINAL Differential Comment Blood Urea Nitrogen 14 MG/DL (7-18) Creatinine 0.52 MG/DL (0.60-1.30) Random Glucose 115 MG/DL (74-106) Total Protein 7.0 GM/DL (6.4-8.2) Albumin 1.9 GM/DL (3.4-5.0) Calcium Level 7.8 MG/DL (8.5-10.1) Alkaline Phosphatase 150 U/L (45-117) Aspartate Amino Transf (AST/SGOT) 64 U/L (15-37) Alanine Aminotransferase (ALT/SGPT) 79 U/L (12-78) Total Bilirubin 0.6 MG/DL (0.2-1.0) Potassium Level 4.1 MEQ/L (3.5-5.1) Chloride Level 104 MEQ/L (98-107) Carbon Dioxide Level 24.8 MEQ/L (21.0-32.0) Anion Gap 6 MEQ/L (5-15) Estimat Glomerular Filtration Rate 175 ML/MIN (>89) Test 05/23/17 06:10 White Blood Count 9.5 TH/MM3 (4.0-11.0) Red Blood Count 2.89 MIL/MM3 (4.50-5.90) Hemoglobin 9.5 GM/DL (13.0-17.0) Hematocrit 27.0 % (39.0-51.0) Mean Corpuscular Volume 93.7 FL (80.0-100.0) Mean Corpuscular Hemoglobin 32.9 PG (27.0-34.0) Mean Corpuscular Hemoglobin Concent 35.1 % (32.0-36.0) Red Cell Distribution Width 15.4 % (11.6-17.2) Platelet Count 302 TH/MM3 (150-450) Mean Platelet Volume 7.9 FL (7.0-11.0) Neutrophils (%) (Auto) 70.0 % (16.0-70.0) Lymphocytes (%) (Auto) 18.0 % (9.0-44.0) Monocytes (%) (Auto) 11.3 % (0.0-8.0) Eosinophils (%) (Auto) 0.4 % (0.0-4.0) Basophils (%) (Auto) 0.3 % (0.0-2.0) Neutrophils # (Auto) 6.7 TH/MM3 (1.8-7.7) Lymphocytes # (Auto) 1.7 TH/MM3 (1.0-4.8) Monocytes # (Auto) 1.1 TH/MM3 (0-0.9) Eosinophils # (Auto) 0.0 TH/MM3 (0-0.4) Basophils # (Auto) 0.0 TH/MM3 (0-0.2) CBC Comment DIFF FINAL Differential Comment Blood Urea Nitrogen 14 MG/DL (7-18) Creatinine 0.49 MG/DL (0.60-1.30) Random Glucose 106 MG/DL (74-106) Total Protein 7.2 GM/DL (6.4-8.2) Albumin 1.9 GM/DL (3.4-5.0) Calcium Level 8.2 MG/DL (8.5-10.1) Alkaline Phosphatase 146 U/L (45-117) Aspartate Amino Transf (AST/SGOT) 64 U/L (15-37) Alanine Aminotransferase (ALT/SGPT) 81 U/L (12-78) Total Bilirubin 0.6 MG/DL (0.2-1.0) Sodium Level 133 MEQ/L (136-145) Potassium Level 3.9 MEQ/L (3.5-5.1) Chloride Level 100 MEQ/L (98-107) Carbon Dioxide Level 25.6 MEQ/L (21.0-32.0) Anion Gap 7 MEQ/L (5-15) Estimat Glomerular Filtration Rate 188 ML/MIN (>89) Result Diagram: 05/23/17 0610 05/23/17 0610 Microbiology Microbiology Date/Time Source Procedure Growth Status 05/16/17 08:15 Blood Peripheral Aerobic Blood Culture - Final NO GROWTH IN 5 DAYS Complete 05/16/17 08:15 Blood Peripheral Anaerobic Blood Culture - Final NO GROWTH IN 5 DAYS Complete 05/15/17 10:50 Sputum Endotracheal Gram Stain - Final Complete 05/15/17 10:50 Sputum Culture - Final Acinetobacter Baumannii/Haemol Complete Imaging Last Impressions Chest X-Ray 05/23/17 0600 Signed Impressions: Service Date/Time: Tuesday, May 23, 2017 05:04 - CONCLUSION: No significant change. Taz Buico MD IVC Filter Placement X-Ray 05/17/17 0000 Signed Impressions: Service Date/Time: Wednesday, May 17, 2017 13:15 - CONCLUSION: Uncomplicated inferior vena cava filter placement as above. This is a retrievable device and can be retrieved up to one year from today's date. Derek Arreola Jr., MD Lower Extremity Ultrasound 05/15/17 0000 Signed Impressions: Service Date/Time: Monday, May 15, 2017 11:53 - CONCLUSION: 1. Thrombus involving the left femoral vein, popliteal vein, peroneal vein, and greater saphenous veins. 2. No DVT is seen on the right side. Taz Junior MD Humerus X-Ray 05/13/17 0000 Signed Impressions: Service Date/Time: April 10:29 - CONCLUSION: Limited images as detailed above. Derek Arreola Jr., MD Upper Extremity CT 05/11/17 0000 Signed Impressions: Service Date/Time: Thursday, May 11, 2017 18:33 - CONCLUSION: Complex and comminuted fracture left proximal humerus with shattered humeral head part of which appears dislocated and there are fractures of the acromion, scapula and distal clavicle in addition to multiple ribs. Jennifer Scales MD Head CT 05/10/17 0600 Signed Impressions: Service Date/Time: Wednesday, May 10, 2017 04:22 - CONCLUSION: 1. Postsurgical changes as above. decreasing mass effect and midline shift 2. Evolving contusions Dmitriy Zeng MD Thoracic Spine CT 05/09/17112 Signed Impressions: Service Date/Time: Tuesday, May 09, 2017 01:41 - CONCLUSION: No acute bony abnormality is seen. Taz Junior MD Lumbar Spine CT 05/09/17112 Signed Impressions: Service Date/Time: Tuesday, May 09, 2017 01:41 - CONCLUSION: 1. No acute bony injury is seen. 2. Mild disc bulge at the L5-S1 level. Taz Junior MD Chest CT 05/09/17112 Signed Impressions: Service Date/Time: Tuesday, May 09, 2017 01:41 - CONCLUSION: 1. Minimal left pneumothorax with a left chest tube in place. 2. There is increased density at the posterior lower lobes and patchy small areas of density in the upper lungs bilaterally being more prominent right. These likely represent a combination of contusions and atelectasis. 3. Bilateral rib fractures being more numerous on the left. 4. Left proximal humeral fracture. 5. Left scapular fracture. Taz Junior MD Cervical Spine CT 05/09/17112 Signed Impressions: Service Date/Time: Tuesday, May 09, 2017 01:37 - CONCLUSION: 1. No acute bony injury is seen. 2. Mild degenerative change as described above. Taz Junior MD Abdomen/Pelvis CT 05/09/17112 Signed Impressions: Service Date/Time: Tuesday, May 09, 2017 01:41 - CONCLUSION: 1. No acute intra-abdominal or pelvic abnormality. 2. Nonobstructing tiny renal stones seen bilaterally. 3. Prominent collaterals seen over the lower anterior abdominal wall in the pelvic region. 4. Rib fractures more fully described in the CT of the chest report. Taz Junior MD Radius/Ulna X-Ray 05/09/17 0000 Signed Impressions: Service Date/Time: Tuesday, May 09, 2017 01:05 - CONCLUSION: Fracturing of the distal radius and ulna as described above. Taz Junior MD Elbow X-Ray 05/09/17 0000 Signed Impressions: Service Date/Time: Tuesday, May 09, 2017 01:05 - CONCLUSION: Comminuted distal humeral fracture with displacement of a portion of the humerus presumably related to the lateral aspect of the distal humerus/capitellum and the radius. There is also fracturing of the proximal ulna. The fracture is open with air in the soft tissues and elbow joint. Taz Junior MD Procedures * - IVC filter placed. * 05/15/17 - bronchoscopy with BAL * 05/13/17 - open treatment of left glenohumeral joint dislocation, open reduction internal fixation left proximal humerus fracture * 05/11/17 - I & D open left distal humerus fracture, open left proximal ulna fracture, open left proximal radius fracture and complex wound closure. * 05/09/17 - right frontotemporoparietal craniotomy for subdural hemorrhage evacuation, right decompressive hemicraniectomy frontal craniotomy with elevation of depressed skull fractures, left forehead/frontal degloving scalp laceration repair with scalp flap transfer, left frontal [place] ICP monitor placement. * 05/09/17 - Left chest tube placement. * 05/09/17 - Intubated. . Assessment and Plan Disease Oriented Problem List: (1) Traumatic brain injury (2) Major neurocognitive disorder as late effect of traumatic brain injury without behavioral disturbance Symptom Scale: (1) Pain 0-10 Scale: Unable to quantify Comment: Nursing pain scales document '0. (2) Dyspnea 0-10 Scale: Unable to quantify Pertinent Non-Medical Issues Psychosocial: Single. Has 1 son, Homero. Has a sister, Faustina. Spiritual:Unknown. Legal: Patient is incapacitated, unlikely to regain capacity due to traumatic brain injury. No known written advanced directives. Single. According to [place] statutes, health care proxy decision making falls to his only son, Homero. Ethical issues impacting care: No known concerns at this time. . Important Contacts * Homero Yuen, son/ HCP: [phone] * Faustina Mcdonald, sister: [phone] Prognosis Mr. Yuen is an unfortunate 41 year old male who suffered a severe traumatic brain injury and traumatic injuries no evidence of neurologic recovery. Overall prognosis is poor for meaningful recovery. . Code Status: No Code Plan * Decision Maker: Patient is incapacitated, will not regain capacity due to severe traumatic brain injury. No known written advanced directives. Single. According to [place] statutes, health care proxy decision making falls to his only son, Homero. He is opting for Faustian to make hsopcie arrangements. She would be next in line per [place] Statutes in terms of HCP decision making. * NO CODE * Goals: Spoke with Faustina sandoval (at bedside) and Homero agustin via phone. Discussed with Eric mejia. Spoke with Homero agustin via speaker phone with Zarina Weems and nurse present. Hospice consulted. He indicates he would prefer that Faustina sandoval make all of the arrangements for hospice transfer and consents as he will be unavailable today. Faustina indicates Homero is struggling with losing his dad. He prefers [facility] in [place]. * Discussed with nurse. Reyes. * SYMPTOMS: Pain: due to trauma, TBI, bone injuries. Dyspnea: off oxygen, labored respirations. Encephalopathy: no evidence of neurologic recovery. Orders adjusted for comfort including pain and dyspnea. Also added ATC Lorazepam due to risk of seizures and Yumiko was previously DCd. * Palliative care will continue to follow throughout hospital course to assist with symptom management and clarification of goals as needed. . Attestation To help prompt me to consider important information that might be impacting today's encounter and assessment, information from prior notes written by myself or my colleagues may have been "brought forward" into today's note. My signature on this note, however, is an attestation that I personally performed the exam, history, and/or decision-making noted today, and, unless otherwise indicated, the interactions with patient, family, and staff as well as the review of records all occurred today. I also attest that the listed assessment and stated plan reflect my best clinical judgment today based on the combination of historical information, prior notes, and today's exam/ interactions. When time spent is documented, it refers only to time spent today by the signer, or if indicated, combined time spent today by collaborating physician/nurse practitioner. Tiffany Morris May 24, 2017 11:49
[2017-05-24] MEDS ORDERED: FUROSEMIDE 20 MG/2 ML VIAL IV PUSH PRN (12:00)
[2017-05-24] MEDS ORDERED: BISACODYL 10 MG SUPP RECTAL PRN (12:00)
[2017-05-24] MEDS ORDERED: ACETAMINOPHEN 650 MG SUPP RECTAL PRN (12:00)
[2017-05-24] MEDS ORDERED: MORPHINE SULFATE 4 MG/ML INJ IV PUSH PRN (12:00)
[2017-05-24] MEDS ORDERED: LORazepam 2 MG/ML VIAL IV PUSH SCH (12:00)
[2017-05-24] MEDS ORDERED: LORazepam 2 MG/ML VIAL IV PUSH PRN ×3 (12:00)
[2017-05-24] MEDS ORDERED: MORPHINE SULFATE 8 MG/ML INJ IV PUSH PRN (12:00)
[2017-05-24] MEDS ORDERED: MORPHINE SULFATE 4 MG/ML INJ IV PUSH SCH (12:00)
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
[2017-05-24] MEDS ORDERED: ATIV2INJ2 IV PUSH (13:16)
[2017-05-24] MEDS ORDERED: MORPHINE IV PUSH (13:16)
[2017-05-24] MEDS ORDERED: Furosemide IV PUSH (13:16)
[2017-05-24] MEDS ORDERED: ACET650R RECTAL (13:16)
[2017-05-24] MEDS ORDERED: HYOS.5P IV PUSH (13:16)
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
== END 2017-05-24 14:56 | disposition hospice, inpatient (51) | DRG 955 ==
LOC: NEPI 01:09 → EDBD 02:29 → NEDA 02:29 → N03B 03:23
PROVIDERS: ADMIT Surgery; ATTEND Surgery
PROC: 5A1955Z Respiratory Ventilation, Greater than 96 Consecutive Hours (ICD-10-PCS; 2017-05-09)
PROC: 00H032Z Insertion of Monitoring Device into Brain, Percutaneous Approach (ICD-10-PCS; 2017-05-09)
PROC: 0HX0XZZ Transfer Scalp Skin, External Approach (ICD-10-PCS; 2017-05-09)
PROC: 0NS Head and Facial Bones, Reposition (ICD-10-PCS; 2017-05-09)
PROC: 00N00ZZ Release Brain, Open Approach (ICD-10-PCS; 2017-05-09)
PROC: 4A103BD Monitoring of Intracranial Pressure, Percutaneous Approach (ICD-10-PCS; 2017-05-09)
PROC: 0BH17EZ Insertion of Endotracheal Airway into Trachea, Via Natural or Artificial Opening (ICD-10-PCS; 2017-05-09)
PROC: 0W9B30Z Drainage of Left Pleural Cavity with Drainage Device, Percutaneous Approach (ICD-10-PCS; 2017-05-09)
PROC: 05H633Z Insertion of Infusion Device into Left Subclavian Vein, Percutaneous Approach (ICD-10-PCS; 2017-05-09)
PROC: 00C40ZZ Extirpation of Matter from Intracranial Subdural Space, Open Approach (ICD-10-PCS; principal; 2017-05-09 02:28)
PROC: 30233N1 Transfusion of Nonautologous Red Blood Cells into Peripheral Vein, Percutaneous Approach (ICD-10-PCS; 2017-05-10)
PROC: 0PDJ0ZZ Extraction of Left Radius, Open Approach (ICD-10-PCS; 2017-05-11)
PROC: 0PBG0ZZ Excision of Left Humeral Shaft, Open Approach (ICD-10-PCS; 2017-05-11)
PROC: 0PDL0ZZ Extraction of Left Ulna, Open Approach (ICD-10-PCS; 2017-05-11)
PROC: 0RSK0ZZ Reposition Left Shoulder Joint, Open Approach (ICD-10-PCS; 2017-05-13)
PROC: 0PSG04Z Reposition Left Humeral Shaft with Internal Fixation Device, Open Approach (ICD-10-PCS; 2017-05-13)
PROC: 0B9J8ZX Drainage of Left Lower Lung Lobe, Via Natural or Artificial Opening Endoscopic, Diagnostic (ICD-10-PCS; 2017-05-15)
PROC: 06H03DZ Insertion of Intraluminal Device into Inferior Vena Cava, Percutaneous Approach (ICD-10-PCS; 2017-05-17)
DX: S06.5X6A Traumatic subdural hemorrhage with loss of consciousness greater than 24 hours without return to pre-existing conscious level with patient surviving, initial encounter (principal); S22.5XXA Flail chest, initial encounter for closed fracture; J96.00 Acute respiratory failure, unspecified whether with hypoxia or hypercapnia; G93.6 Cerebral edema; J69.0 Pneumonitis due to inhalation of food and vomit; S27.1XXA Traumatic hemothorax, initial encounter; S02.82XB Fracture of other specified skull and facial bones, left side, initial encounter for open fracture; J15.6 Pneumonia due to other Gram-negative bacteria; S42.492B Other displaced fracture of lower end of left humerus, initial encounter for open fracture; S52.122B Displaced fracture of head of left radius, initial encounter for open fracture type I or II; S27.322A Contusion of lung, bilateral, initial encounter; D62 Acute posthemorrhagic anemia; S42.292A Other displaced fracture of upper end of left humerus, initial encounter for closed fracture; S52.502A Unspecified fracture of the lower end of left radius, initial encounter for closed fracture; S52.501A Unspecified fracture of the lower end of right radius, initial encounter for closed fracture; S52.611A Displaced fracture of right ulna styloid process, initial encounter for closed fracture; I82.512 Chronic embolism and thrombosis of left femoral vein; I82.812 Embolism and thrombosis of superficial veins of left lower extremity; E87.1 Hypo-osmolality and hyponatremia; I82.532 Chronic embolism and thrombosis of left popliteal vein; E86.9 Volume depletion, unspecified; S06.2X6A Diffuse traumatic brain injury with loss of consciousness greater than 24 hours without return to pre-existing conscious level with patient surviving, initial encounter; S02.0XXB Fracture of vault of skull, initial encounter for open fracture; S02.0XXA Fracture of vault of skull, initial encounter for closed fracture; S61.511A Laceration without foreign body of right wrist, initial encounter; R40.2432 Glasgow coma scale score 3-8, at arrival to emergency department; V29.9XXA Motorcycle rider (driver) (passenger) injured in unspecified traffic accident, initial encounter; S42.122A Displaced fracture of acromial process, left shoulder, initial encounter for closed fracture; S42.032A Displaced fracture of lateral end of left clavicle, initial encounter for closed fracture; Z96.612 Presence of left artificial shoulder joint; S42.102A Fracture of unspecified part of scapula, left shoulder, initial encounter for closed fracture; F31.9 Bipolar disorder, unspecified; F41.9 Anxiety disorder, unspecified; Z91.5 Personal history of self-harm; Z91.14 Patient's other noncompliance with medication regimen; Z72.0 Tobacco use; F12.90 Cannabis use, unspecified, uncomplicated; H57.02 Anisocoria; R00.0 Tachycardia, unspecified; I87.8 Other specified disorders of veins; R73.9 Hyperglycemia, unspecified; S06.6X9A Traumatic subarachnoid hemorrhage with loss of consciousness of unspecified duration, initial encounter; I10 Essential (primary) hypertension; H57.04 Mydriasis; S43.005A Unspecified dislocation of left shoulder joint, initial encounter; D69.6 Thrombocytopenia, unspecified; F11.90 Opioid use, unspecified, uncomplicated; Z51.5 Encounter for palliative care; Z66 Do not resuscitate
CPT/HCPCS: 31500; 32551; 36430; 36556; 36600; 37191; 43753; 51702; 70450; 71010; 71260; 72125; 72128; 72131; 73060; 73070; 73090; 73200; 74177; 76000; 76937; 80048; 80053; 80074; 81001; 82435; 82565; 82805; 82947; 82948; 83735; 83930; 84100; 84132; 84155; 84295; 84520; 85007; 85014; 85018; 85025; 85027; 85610; 85730; 86850; 86900; 86901; 86920; 87040; 87070; 87077; 87186; 87205; 87641; 90471; 90715; 93005; 93306; 93970; 93971; 94002; 94003; 94770; 96374; 96375; 99291; C1769; C1880; C9113; G0390; J0131; J0295; J0690; J1580; J1650; J1953; J1956; J1980; J2060; J2150; J2270; J2370; J2405; J2543; J3010; J3370; J3480; J7030; J7040; J7050; L0172; P9016; P9045; Q9967